=== PATIENT | female | born 1935 | race Caucasian/White ===

== ENCOUNTER 2020-01-01 16:00 | Inpatient (IN) | payer MEDICARE ==
[~2020-01-01] VITALS: Ht 163.8 cm; Wt 52.5 kg
--- NOTE | 2020-01-01 17:30 | NUR ---
The patient, NAM RAZO, 84 y/o, F admitted by DARIA LEPE MD, was given written information regarding hospital policies, unit procedures and contact persons. Valuables were checked and inventoried. Patient admitted for depression and SI, on admission she states that she is depressed but does not have plans to harm herself. Patient has multiple small bruises in various stages of healing throughout her body and small area of redness in buttocks; no other skin issues noted. Patient placed on isolation pending COVID-19 testing.
[2020-01-01 17:55] VITALS: BP 147/76
[2020-01-01 18:00] VITALS: BP 147/76
[2020-01-01] MEDS ORDERED: MULT-246 PO (20:02)
[2020-01-01] MEDS ORDERED: ATOR40TA59 PO (20:02)
[2020-01-01] MEDS ORDERED: DOCU100T5 PO (20:02)
[2020-01-01] MEDS ORDERED: ASPI81TA59 PO (20:02)
[2020-01-01] MEDS ORDERED: DONE10TA7 PO (20:02)
[2020-01-01] MEDS ORDERED: LEVO88TA51 PO (20:02)
[2020-01-01] MEDS ORDERED: LAMO150T4 PO (20:02)
[2020-01-01] MEDS ORDERED: CALC600T23 PO (20:02)
[2020-01-01] MEDS ORDERED: METO-239 PO (20:02)
[2020-01-01] MEDS ORDERED: OLAN20TA15 PO (20:02)
[2020-01-01] MEDS ORDERED: OLANZapine 10 MG TABLET PO SCH (21:00)
[2020-01-01] MEDS: DOCUSATE SODIUM 100 MG CAPSULE PO SCH (21:12)
[2020-01-01] MEDS: ATORVASTATIN CALCIUM 20 MG TABLET PO SCH (21:12)
--- NOTE | 2020-01-01 23:30 | PDOC ---
Exam Note: Alistair Note: Please also refer to the separate dictated note~for this date of service dictated separately.~Patient seen individually. Discussed the patient with Nursing staff reviewed the chart.~Reviewed interim history and current functioning. Reviewed vital signs,~Labs/ Radiology~and current medications noted below. Continue current treatment with the changes noted in the dictated addendum note Assessment: Vital Signs/I&O: Vital Signs Date Time Temp Pulse Resp B/P (MAP) Pulse Ox O2 Delivery O2 Flow Rate FiO2 01/01/20 20:22 98.7 95 01/01/20 18:00 78 147/76 (99) 01/01/20 17:55 18 Room Air Current Medications: Meds: Current Medications Medications (Trade) Dose Ordered Sig/Williams Route PRN Reason Start Time Stop Time Status Last Admin Dose Admin Atorvastatin Calcium (Lipitor) 40 mg QHS PO 01/01/20 21:00 01/01/20 21:12 Docusate Sodium (Colace) 100 mg BID PO 01/01/20 21:00 01/01/20 21:12 Olanzapine (ZyPREXA) 20 mg BID PO 01/01/20 21:00 01/01/20 22:59 DC 01/01/20 21:12 I have reviewed the current psychotropics carefully including drug interactions. Risk benefit ratio favors no change other than as noted in my dictated progress note. AGNIESZKA COLLADO MD Jan 01, 2020 23:30
--- NOTE | 2020-01-01 23:58 | NUR ---
Nursing Note Pt alert and oriented, denies complaints. Quiet and cooperative med compliant.
--- NOTE | 2020-01-02 01:22 | CONS ---
DATE OF CONSULTATION: 01/01/2020 PSYCHIATRIC PROGRESS NOTE This note covers elements not covered in my initial note 01/01/2020. IDENTIFYING DATA: The patient is an 84-year-old female referred to us from [facility] where she has been in the Emergency Room overnight after she was brought there by her granddaughter with whom she lives as the patient had voiced suicidal ideation with a plan to end her life. The patient was also noted to have a UTI, which is being treated, but she remained extremely depressed. Behaviors deemed a potential danger to herself. She had failed outpatient psychiatric interventions resulting in this referral. She is on the medical/surgical floor until she can have a COVID-19 screen completed and then plan is to transfer her to the [facility] Unit. CHIEF COMPLAINT: "Yes, I thought about ending my life, but my granddaughter told me that I would never get to see my . I can't do that. We were for over 50 years." HISTORY OF PRESENT ILLNESS: The patient has a history of some short-term memory deficits, worsening symptoms of depression, feeling hopeless, helpless and worthless. She has been having sleep and appetite changes, withdrawal, apathy, low motivation, some paranoia. She also has short-term memory deficits. PAST PSYCHIATRIC HISTORY: As above. MEDICAL HISTORY: Positive for seizure disorder, atrial fibrillation, hypertension, chronic kidney disease stage 3, history of falls, arthritis, cataracts, chronic constipation. ACCU-CHEKS: None. DIET: Regular. Takes medications whole. Ambulates in wheelchair. CODE STATUS: DNR. ALLERGIES: To SULTANA INHIBITORS, PENICILLIN, PHENAZOPYRIDINE. CURRENT PSYCHOTROPICS: Lamictal 300 mg daily for her seizure disorder, Aricept 10 mg a day, Zyprexa 20 mg b.i.d. FAMILY HISTORY: Noncontributory. SOCIAL HISTORY: No history of alcohol, drug abuse, physical, sexual or elder abuse. She is not known to be a perpetrator. REACTION TO HOSPITALIZATION: The patient accepting of this. ASSETS: Supportive family. She lives with her granddaughter and great grandson. MENTAL STATUS EXAMINATION: The patient is oriented to herself and situation. The patient knew she was admitted earlier today, but was unsure where she was before she came here. Speech is moderate latency, often responses monosyllabic. Abstraction fair, computation impaired, language function intact. Mood is depressed, anxious. Short-term memory is impaired. No active suicidal ideation. LABORATORY DATA: Reviewed. IMPRESSION: Major depressive disorder, recurrent, severe; rule out psychotic features; mild cognitive impairment; anxiety disorder, unspecified. Rest as above. PLAN: For now, we will reduce the patient's Zyprexa down to 10 mg b.i.d. and then further reduce it in due course. Given her age and diagnosis and overall condition, risk/benefit ratio favors this reduction. Maintain rest of the psychotropics unchanged. We will observe baseline, treat the UTI. Make further adjustments as clinically indicated. The patient may need to transition to the Senior Behavioral Health Unit when she is medically stabilized and is COVID-19 negative. This was a telehealth evaluation. AGNIESZKA COLLADO MD DR: PIEDAD/tegan JOB#: [id number] / [id number]
[2020-01-02] MEDS ORDERED: ACETAMINOPHEN 325 MG TABLET PO PRN (02:00)
[2020-01-02] MEDS: LEVOTHYROXINE 88 MCG TABLET PO SCH (05:39)
[2020-01-02 05:55] VITALS: BP 121/57
[2020-01-02] MEDS: MULTIVITAMIN with MINERAL TABLET. PO SCH (10:07)
[2020-01-02] MEDS: CALCIUM CARBONATE 500 MG TABLET PO SCH (10:07)
[2020-01-02] MEDS: lamoTRIgine 100 MG TABLET. PO SCH (10:07)
[2020-01-02] MEDS: DONEPEZIL HCL 10 MG TABLET PO SCH (10:07)
[2020-01-02] MEDS: ASPIRIN CHEWABLE 81 MG TABLET. PO SCH (10:07)
[2020-01-02] MEDS: METOPROLOL SUCC 24HR ER 25 MG TAB.ER.24H. PO SCH (10:08)
[2020-01-02] MEDS: DOCUSATE SODIUM 100 MG CAPSULE PO SCH ×2 (10:10→23:32)
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
--- NOTE | 2020-01-02 17:03 | TX PLAN ---
Interdisciplinary Tx Plan Admission Information Jan 01, 2020 at 16:00 Legal Status (on Admission): Voluntary DPOA/Guardian Name: Giuseppe Dinh Contact Verified Code Status: DNR Allergies: Coded Allergies: SULTANA Inhibitors (Verified Allergy, Unknown, 01/01/20) Penicillins (Verified Allergy, Unknown, 01/01/20) phenazopyridine (Verified Allergy, Unknown, 01/01/20) Diagnoses Primary Diagnosis: MDD Reasons for Admission: Aggressive, Depressed, Suicidal ideation, Other Problem in Patient's Words: Pt has been getting worse over time. Additional Admission Comments: According to the intake, pt is SI, throwing herself on the floor to "". Pt is increasingly depressed and hits her head against the bed rails. Aggressive to granddtr Problems Active Problems: Depression Inactive Problems: Medication compliance Pt Strengths/Limitations Ability for [place]: Poor Cognitive Functioning/Ability: Fair Communication Skills/Ability: Fair Financial Resources: Fair Insight/Judgement: Fair Intellectual Ability: Fair Physical Health: Poor Social Skills: Fair Stability in Family: Fair Stability in School/Work: Poor Verbal Skills: Fair Discharge Criteria Discharge Criteria: No need for close observ., Adequate arrangements @DC, Improved behavior, Improved mood/thought Preliminary Discharge Plan Preliminary DC Plan: Placement Needed, Current Living Arrange. Special Precautions Fall Risk: Moderate Initial D/C Plan Undecided at this time: Home vs Placement Identified Discharge Needs: Potential referrals needed in the event family decides not to have pt home. Currently Utilized Resources Currently Utilized Resources/P: Primary Care Physician Referrals Community Resources: Mental health services Identified Problems/Hx/Goals Objectives/Short-Term Goals Short Term Goals: Dec. Aggression, Dec. Symp. Depression, Medication Stabilization, Promote Coping Skill Short Term Goals in Patient's: Figure out my next steps, I want to go home but my family may decide differently. Interventions/Frequency Staff Interventions/Frequency&: Psychiatrist to assess pt at least 3x per week for medication management Microeconomics Professor to assess pt at least 2x per week and continually assess discharge needs/barriers. Nursing to assess behaviors, medication and complete 15 minute checks daily Encourage participation in group activites (if applicable) or 1:1 engagement based off Activities assessment. 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
[2020-01-02 18:03] VITALS: BP 130/60
[2020-01-02 19:19] LABS: BACTERIA,URINE 0 /HPF (0-FEW); BILIRUBIN,URINE NEG (NEG); CLARITY,URINE CLEAR; COLOR,URINE YELLOW; GLUCOSE,URINE NEG (NEG); NITRITE,URINE NEG (NEG); RBC,URINE 0 /HPF (0-2); SQUAMOUS EPITHELIAL CELL,UR OCC /LPF; UROBILINOGEN,URINE 0.2 mg/dL (0.2 mg/dL); WBC,URINE 0 /HPF (0-4)
[2020-01-02 19:20] LABS: AMORPHOUS SEDIMENT,UR PRESENT /HPF
[2020-01-02 19:45] VITALS: BP 127/56
--- NOTE | 2020-01-02 19:47 | CONS ---
DATE OF CONSULTATION: 01/02/2020 REASON FOR CONSULTATION: Medical management. HISTORY OF PRESENT ILLNESS: The patient is an 84-year-old female patient who was referred to the Senior Behavioral Unit from [facility] where she has been in the Emergency Room overnight after she was brought there by granddaughter with whom she lives as the patient had voiced suicidal ideation with a plan to end her life. The patient was also noted to have a UTI, which is being treated, but she remained extremely depressed behavior that deemed potentially dangerous to herself, as she has failed outpatient psychiatric intervention resulting in this referral. She is now on medical surgical floor until she can have a COVID-19 screen completed and then plan to transfer to [facility] for inpatient psychiatric stabilization. When I saw her this afternoon, she did complain of aches and pains, particularly in her neck, but denied any other complaint. She stated that she lives with her granddaughter the last 4 years and she sometimes has difficulty getting along with her granddaughter. PAST MEDICAL HISTORY: Significant for seizure disorder, atrial fibrillation, hypertension, chronic kidney disease stage 3, recurrent falls, osteoarthritis, cataracts, and chronic constipation. PAST SURGICAL HISTORY: Significant for she said probably vertebroplasty, although I do not have any documentation of that. ALLERGIES: SHE IS ALLERGIC TO PENICILLIN AND SULTANA INHIBITORS AND PHENAZOPYRIDINE. FAMILY HISTORY: Noncontributory. SOCIAL HISTORY: She is , lives with her granddaughter. She does not smoke, drink alcohol or use recreational drugs. MEDICATIONS: She is currently on following medications: She is on Aricept 10 mg once a day, atorvastatin calcium 40 mg at bedtime, metoprolol succinate 12.5 mg once a day, aspirin 81 mg once a day, lamotrigine 300 mg once a day, olanzapine 20 mg twice a day, calcium carbonate 600 mg once a day, Colace 100 mg twice a day, levothyroxine sodium 88 mcg once a day, multivitamin 1 tablet once a day. REVIEW OF SYSTEMS: As per history of present illness. PHYSICAL EXAMINATION: GENERAL: When I saw her, she was resting slightly propped up in bed, in no apparent respiratory distress. No pallor, jaundice or cyanosis. No lymphadenopathy or thyromegaly. No jugular venous distension. No lower limb edema. VITAL SIGNS: Her heart rate was 74, blood pressure was 130/60, temperature was 98.4, respiratory rate was 16, and oxygen saturation was 98%. HEAD, EYES, EARS, NOSE AND THROAT: Normocephalic, atraumatic. NECK: Supple. HEART: Showed normal first and second heart sounds. No gallop or murmur. CHEST: Clear to auscultation. No crepitation or rhonchi. ABDOMEN: Distended, soft, nontender. NEUROLOGIC: She is hard of hearing, but otherwise all cranial nerves intact. EXTREMITIES: She moves extremities without difficulty. She ambulates with a walker with standby assist. She uses also a wheelchair at home. She apparently has had lab work at [facility], it showed that her white cell count was 6900, hemoglobin 12.8, hematocrit was 38, platelet was 248,000. Her sodium was 142, potassium 4.2, chloride 104, bicarbonate 22. She had had a CT scan of the brain, which showed no evidence of acute intracranial hemorrhage or other acute intracranial abnormality. ASSESSMENT AND PLAN: In summary, this is an 84-year-old female patient who was admitted with severe depression and suicidal ideation. She has multiple other medical problems including seizure disorder, atrial fibrillation, hypertension, chronic kidney disease stage 3, history of falls, arthritis and chronic constipation. My plan is to repeat her lab work as her lab works are incomplete or at least incompletely transferred from [facility]. Meanwhile, there was mention that she has UTI, but I did not see any urinalysis or urine culture. I will repeat her UA and decide the further management accordingly. Thank you, . ____ for allowing me to participate in the care of this patient. CHRISTIANO SERRANO MD DR: JAN/tegan JOB#: [id number] / [id number]
[2020-01-02 21:13] LABS: CALCIUM 8.2 mg/dL (8.5-10.1); CREATININE 1.4 mg/dL (0.6-1.0); GFR 35.7; POTASSIUM 4.1 mmol/L (3.5-5.1); TOTAL BILIRUBIN 0.2 mg/dL (0.2-1.0); TOTAL PROTEIN 6.1 g/dL (6.4-8.2)
--- NOTE | 2020-01-02 22:36 | PDOC ---
Exam Note: Alistair Note: Subjective: The patient was reviewed on telehealth rounds due to COVID-19 restrictions on the unit in the evening of 01/02/2020 with Wilfredo JEFFERSON. Discussed with nursing staff, reviewed the chart. The patient slept reasonably previous night. I had a conversation with Litzy JEFFERSON last evening. The patient was on Z yprexa 20 mg b.i.d. No clear psychotic symptoms noted. Given her overall age and general health the dosage seemed somewhat excessive and we discontinued it. In fact she appeared more awake and interactive since then. Review of Systems: She is hard of hearing. No CV, , pulmonary system symptoms on review. Mental Status Exam: Oriented to herself and situation. Speech is coherent. Abstraction fair. Computation impaired. Language functions intact. Short-term memory does have impairment. Mood is still dysphoric. No active suicidal ideation. Laboratory Data: Reviewed. Impression: Major depressive disorder recurrent, severe. Anxiety disorder unspecified. Mild cognitive impairment. Plan: We will stop the Zyprexa 20 mg b.i.d. Start Zoloft 25 mg a day for 3 day and 50 mg a day. Maintain Lamictal 300 mg daily for seizures, Aricept 10 mg a day. Assessment: Vital Signs/I&O: Vital Signs Date Time Temp Pulse Resp B/P (MAP) Pulse Ox O2 Delivery O2 Flow Rate FiO2 01/02/20 18:03 98.4 74 16 130/60 (83) 98 01/01/20 17:55 Room Air I & O 01/01/20 01/01/20 01/02/20 15:00 23:00 07:00 Intake Total 530 ml 85 ml Balance 530 ml 85 ml Labs: Laboratory Tests Test 01/02/20 19:00 01/02/20 20:45 Urine Collection Type Unknown Urine Color Yellow Urine Clarity Clear Urine pH 5.5 Urine Specific Bailey 1.015 Urine Protein Neg (NEG-TRACE) Urine Glucose (UA) Neg mg/dL (NEG) Urine Ketones (Stick) Neg mg/dL (NEG) Urine Blood Neg (NEG) Urine Nitrite Neg (NEG) Urine Bilirubin Neg (NEG) Urine Urobilinogen Dipstick 0.2 mg/dL (0.2 mg/dL) Urine Leukocyte Esterase Neg (NEG) Urine RBC 0 /HPF (0-2) Urine WBC 0 /HPF (0-4) Urine Squamous Epithelial Cells Occ /LPF Urine Amorphous Sediment Present /HPF Urine Bacteria 0 /HPF (0-FEW) Urine Mucus Slight /LPF Sodium Level 139 mmol/L (136-145) Potassium Level 4.1 mmol/L (3.5-5.1) Chloride Level 106 mmol/L (98-107) Carbon Dioxide Level 20 mmol/L (21-32) L Anion Gap 13 (6-14) Blood Urea Nitrogen 42 mg/dL (7-20) H Creatinine 1.4 mg/dL (0.6-1.0) H Estimated GFR (Cockcroft-Gault) 35.7 BUN/Creatinine Ratio 30 (6-20) H Glucose Level 120 mg/dL (70-99) H Calcium Level 8.2 mg/dL (8.5-10.1) L Total Bilirubin 0.2 mg/dL (0.2-1.0) Aspartate Amino Transferase (AST) 26 U/L (15-37) Alanine Aminotransferase (ALT) 26 U/L (14-59) Alkaline Phosphatase 54 U/L (46-116) Total Protein 6.1 g/dL (6.4-8.2) L Albumin 3.0 g/dL (3.4-5.0) L Albumin/Globulin Ratio 1.0 (1.0-1.7) Current Medications: Meds: Current Medications Medications (Trade) Dose Ordered Sig/Williams Route PRN Reason Start Time Stop Time Status Last Admin Dose Admin Aspirin (Aspirin Chewable) 81 mg DAILY PO 01/02/20 09:00 01/02/20 10:07 Donepezil HCl (Aricept) 10 mg DAILY PO 01/02/20 09:00 01/02/20 10:07 Levothyroxine Sodium (Synthroid) 88 mcg DAILY06 PO 01/02/20 06:00 01/02/20 05:39 Metoprolol Succinate (Toprol Xl) 12.5 mg DAILY PO 01/02/20 09:00 01/02/20 10:08 Calcium Carbonate/ Glycine (Oscal) 500 mg DAILY PO 01/02/20 09:00 01/02/20 10:07 Lamotrigine (LaMICtal) 300 mg DAILY PO 01/02/20 09:00 01/02/20 10:07 Multivitamins/ Calcium (Thera-M Plus) 1 tab DAILY PO 01/02/20 09:00 01/02/20 10:07 I have reviewed the current psychotropics carefully including drug interactions. Risk benefit ratio favors no change other than as noted in my dictated progress note. Diagnosis: Problems: (1) Major depressive disorder, recurrent episode (2) Mild cognitive impairment (3) Anxiety disorder, unspecified AGNIESZKA COLLADO MD Jan 02, 2020 22:36
[2020-01-02] MEDS: ATORVASTATIN CALCIUM 20 MG TABLET PO SCH (23:33)
[2020-01-03 04:00] VITALS: BP 140/56
--- NOTE | 2020-01-03 04:36 | NUR ---
This shift pt has been pleasant and cooperative. Meds were taken whole one at a time. She is oriented to self forgetful with some confusion. Since going to bed she has been sleeping well. No mention of SI and no behaviors tonight.
[2020-01-03] MEDS: LEVOTHYROXINE 88 MCG TABLET PO SCH (05:55)
[2020-01-03] MEDS: SERTRALINE 25 MG TABLET. PO SCH (09:47)
[2020-01-03] MEDS: MULTIVITAMIN with MINERAL TABLET. PO SCH (09:47)
[2020-01-03] MEDS: METOPROLOL SUCC 24HR ER 25 MG TAB.ER.24H. PO SCH (09:49)
[2020-01-03] MEDS: CALCIUM CARBONATE 500 MG TABLET PO SCH (09:49)
[2020-01-03] MEDS: lamoTRIgine 100 MG TABLET. PO SCH (09:49)
[2020-01-03] MEDS: DONEPEZIL HCL 10 MG TABLET PO SCH (09:49)
[2020-01-03] MEDS: DOCUSATE SODIUM 100 MG CAPSULE PO SCH ×2 (09:49→21:06)
[2020-01-03] MEDS: ASPIRIN CHEWABLE 81 MG TABLET. PO SCH (09:49)
[2020-01-03 10:42] LABS: HEMATOCRIT 36.4 % (36.0-47.0); HEMOGLOBIN 12.1 g/dL (12.0-15.5); RED BLOOD COUNT 3.83 x10^6/uL (3.50-5.40); RED CELL DISTRIBUTION WIDTH 14.1 % (11.5-14.5); WHITE BLOOD COUNT 5.8 x10^3/uL (4.0-11.0)
[2020-01-03] MEDS ORDERED: FLU VACC QS 2020-21(6MOS+)/PF 0.5 ML SYRINGE. VAX IM ONE (13:00)
[2020-01-03 15:21] VITALS: BP 126/62
[2020-01-03 20:00] VITALS: BP 148/50
[2020-01-03] MEDS: ATORVASTATIN CALCIUM 20 MG TABLET PO SCH (21:06)
--- NOTE | 2020-01-03 21:48 | PDOC ---
Exam Note: Alistair Note: Please also refer to the separate dictated note~for this date of service dictated separately.~Patient seen individually. Discussed the patient with Nursing staff reviewed the chart.~Reviewed interim history and current functioning. Reviewed vital signs,~Labs/ Radiology~and current medications noted below. Continue current treatment with the changes noted in the dictated addendum note Assessment: Vital Signs/I&O: Vital Signs Date Time Temp Pulse Resp B/P (MAP) Pulse Ox O2 Delivery O2 Flow Rate FiO2 01/03/20 20:00 97.6 74 16 148/50 (82) 97 Room Air I & O 01/02/20 01/02/20 01/03/20 14:59 22:59 06:59 Intake Total 460 ml 690 ml Balance 460 ml 690 ml Labs: Laboratory Tests Test 01/03/20 10:11 White Blood Count 5.8 x10^3/uL (4.0-11.0) Red Blood Count 3.83 x10^6/uL (3.50-5.40) Hemoglobin 12.1 g/dL (12.0-15.5) Hematocrit 36.4 % (36.0-47.0) Mean Corpuscular Volume 95 fL (79-100) Mean Corpuscular Hemoglobin 32 pg (25-35) Mean Corpuscular Hemoglobin Concent 33 g/dL (31-37) Red Cell Distribution Width 14.1 % (11.5-14.5) Platelet Count 196 x10^3/uL (140-400) Thyroid Stimulating Hormone (TSH) 0.871 uIU/mL (0.358-3.740) Current Medications: Meds: Current Medications Medications (Trade) Dose Ordered Sig/Williams Route PRN Reason Start Time Stop Time Status Last Admin Dose Admin Sertraline HCl (Zoloft) 25 mg DAILY PO 01/03/20 09:00 01/05/20 23:50 01/03/20 09:47 Influenza Virus Vaccine Quadrival (Fluzone Quad Syringe) 0.5 ml ONCE ONCE VAX IM 01/03/20 13:00 01/03/20 13:01 DC 01/03/20 18:20 I have reviewed the current psychotropics carefully including drug interactions. Risk benefit ratio favors no change other than as noted in my dictated progress note. Diagnosis: Problems: (1) Major depressive disorder, recurrent episode (2) Mild cognitive impairment (3) Anxiety disorder, unspecified AGNIESZKA COLLADO MD Jan 03, 2020 21:48
--- NOTE | 2020-01-03 23:20 | PDOC ---
Exam Note: Alistair Note: Subjective: The patient was reviewed on telehealth rounds due to COVID-19 restrictions on the unit in the evening of 01/03/2020 with Karen JEFFERSON. Discussed with nursing staff, reviewed the chart. The patient was also discussed at treatment team meeting in the morning of 01/03/2020 with Madina (social services technician) Karen JEFFERSON and myself. Overall the patient is doing better, more cooperative with showers and medications. She slept well previous night. She is still depressed but as I met with her individually she denies active suicidal ideation because she knows if she tries to hurt herself she will not be reunited with her which is something she wants to do after she passes away. Review of Systems: No CV, , pulmonary system symptoms on review. Mental Status Exam: The patient is oriented to herself and situation. Speech has some latency, coherent. Abstraction fair. Computation impaired. Language functions intact. Mood and affect still depressed but no active suicidal ideation. Laboratory Data: Reviewed. Impression: Major depressive disorder recurrent. Anxiety disorder unspecified. Mild cognitive impairment. Plan: Madina discussed how the patients son is wanting her placed in a nursing facility. She may be appropriate for an assisted living, perhaps not for long- term nursing care. The alternative for her would be for her to be back home with her granddaughter and great grandson but I will let the social service staf f address this with the family. Maintain current psychotropics. Zoloft was initiated 25 mg a day for 3 days and 50 mg a day. Adjust further as clinically indicated. Assessment: Vital Signs/I&O: Vital Signs Date Time Temp Pulse Resp B/P (MAP) Pulse Ox O2 Delivery O2 Flow Rate FiO2 01/03/20 20:00 97.6 74 16 148/50 (82) 97 Room Air I & O 01/02/20 01/02/20 01/03/20 15:00 23:00 07:00 Intake Total 460 ml 690 ml Balance 460 ml 690 ml Labs: Laboratory Tests Test 01/03/20 10:11 White Blood Count 5.8 x10^3/uL (4.0-11.0) Red Blood Count 3.83 x10^6/uL (3.50-5.40) Hemoglobin 12.1 g/dL (12.0-15.5) Hematocrit 36.4 % (36.0-47.0) Mean Corpuscular Volume 95 fL (79-100) Mean Corpuscular Hemoglobin 32 pg (25-35) Mean Corpuscular Hemoglobin Concent 33 g/dL (31-37) Red Cell Distribution Width 14.1 % (11.5-14.5) Platelet Count 196 x10^3/uL (140-400) Thyroid Stimulating Hormone (TSH) 0.871 uIU/mL (0.358-3.740) Current Medications: Meds: Current Medications Medications (Trade) Dose Ordered Sig/Williams Route PRN Reason Start Time Stop Time Status Last Admin Dose Admin Sertraline HCl (Zoloft) 25 mg DAILY PO 01/03/20 09:00 01/05/20 23:50 01/03/20 09:47 Influenza Virus Vaccine Quadrival (Fluzone Quad Syringe) 0.5 ml ONCE ONCE VAX IM 01/03/20 13:00 01/03/20 13:01 DC 01/03/20 18:20 I have reviewed the current psychotropics carefully including drug interactions. Risk benefit ratio favors no change other than as noted in my dictated progress note. Diagnosis: Problems: (1) Major depressive disorder, recurrent episode (2) Mild cognitive impairment (3) Anxiety disorder, unspecified AGNIESZKA COLLADO MD Jan 03, 2020 23:20
--- NOTE | 2020-01-04 05:28 | NUR ---
Pt has been in her room tonight she has been pleasant cooperative med compliant and had no behaviors. She was social with staff and made no SI comments.
[2020-01-04] MEDS: LEVOTHYROXINE 88 MCG TABLET PO SCH (05:32)
[2020-01-04 06:03] VITALS: BP 138/72
[2020-01-04] MEDS: DOCUSATE SODIUM 100 MG CAPSULE PO SCH ×2 (10:35→20:44)
[2020-01-04] MEDS: DONEPEZIL HCL 10 MG TABLET PO SCH (10:35)
[2020-01-04] MEDS: MULTIVITAMIN with MINERAL TABLET. PO SCH (10:35)
[2020-01-04] MEDS: CALCIUM CARBONATE 500 MG TABLET PO SCH (10:35)
[2020-01-04] MEDS: ASPIRIN CHEWABLE 81 MG TABLET. PO SCH (10:35)
[2020-01-04] MEDS: SERTRALINE 25 MG TABLET. PO SCH (10:35)
[2020-01-04] MEDS: lamoTRIgine 100 MG TABLET. PO SCH (10:35)
[2020-01-04] MEDS: METOPROLOL SUCC 24HR ER 25 MG TAB.ER.24H. PO SCH (10:36)
[2020-01-04 16:41] VITALS: BP 170/60
[2020-01-04] MEDS ORDERED: CALCIUM CARBONATE 500 MG TAB.CHEW PO PRN (17:15)
[2020-01-04 19:00] VITALS: BP 176/71
[2020-01-04] MEDS ORDERED: MAG HYDROX/AL HYDROX/SIMETH 30 ML ORAL.SUSP PO PRN (19:00)
[2020-01-04] MEDS: ATORVASTATIN CALCIUM 20 MG TABLET PO SCH (20:44)
--- NOTE | 2020-01-04 23:59 | NUR ---
Patient pleasant, cooperative. Compliant with medications taken whole. Denies any pain. Denies SI. Complained of dyspepsia and received PRN Mylanta with HS meds, with good effect. Patient appears to be sleeping comfortably at present time. Will continue to monitor.
[2020-01-05] MEDS: LEVOTHYROXINE 88 MCG TABLET PO SCH (05:00)
[2020-01-05 08:00] VITALS: BP 154/75
[2020-01-05] MEDS: DONEPEZIL HCL 10 MG TABLET PO SCH (08:02)
[2020-01-05] MEDS: DOCUSATE SODIUM 100 MG CAPSULE PO SCH ×2 (08:02→20:53)
[2020-01-05] MEDS: MULTIVITAMIN with MINERAL TABLET. PO SCH (08:02)
[2020-01-05] MEDS: lamoTRIgine 100 MG TABLET. PO SCH (08:02)
[2020-01-05] MEDS: ASPIRIN CHEWABLE 81 MG TABLET. PO SCH (08:02)
[2020-01-05] MEDS: SERTRALINE 25 MG TABLET. PO SCH (08:02)
[2020-01-05] MEDS: CALCIUM CARBONATE 500 MG TABLET PO SCH (08:02)
[2020-01-05] MEDS: METOPROLOL SUCC 24HR ER 25 MG TAB.ER.24H. PO SCH (08:03)
[2020-01-05] MEDS ORDERED: traZODone 50 MG TABLET. PO PRN (17:45)
--- NOTE | 2020-01-05 19:19 | NUR ---
Pt up to BR with assist, Has been in pleasant spirits. Has voiced no SI. Did state she did not sleep well last night and didn't feel like showering and barely felt like eating. Is anxious to start talking with someone about the issues she is having with her grand-daughter at home. Apparently they have several differences of opinion. Has been compliant with meds and cares.
[2020-01-05 20:50] VITALS: BP 145/88
[2020-01-05] MEDS: FAMOTIDINE 20 MG TABLET PO SCH (20:53)
[2020-01-05] MEDS: ATORVASTATIN CALCIUM 20 MG TABLET PO SCH (20:53)
[2020-01-05] MEDS ORDERED: MIRTAZAPINE 7.5 MG TABLET. PO SCH (21:00)
--- NOTE | 2020-01-05 21:47 | PDOC ---
Exam Note: Alistair Note: Please also refer to the separate dictated note~for this date of service dictated separately.~Patient seen individually. Discussed the patient with Nursing staff reviewed the chart.~Reviewed interim history and current functioning. Reviewed vital signs,~Labs/ Radiology~and current medications noted below. Continue current treatment with the changes noted in the dictated addendum note Assessment: Vital Signs/I&O: Vital Signs Date Time Temp Pulse Resp B/P (MAP) Pulse Ox O2 Delivery O2 Flow Rate FiO2 01/05/20 20:50 99.0 128 18 145/88 (107) 94 Room Air 01/04/20 20:00 2.0 I & O 01/04/20 01/04/20 01/05/20 15:00 23:00 07:00 Intake Total 478 ml 240 ml 240 ml Balance 478 ml 240 ml 240 ml Current Medications: Meds: Current Medications Medications (Trade) Dose Ordered Sig/Williams Route PRN Reason Start Time Stop Time Status Last Admin Dose Admin Famotidine (Pepcid) 20 mg BID PO 01/05/20 21:00 01/05/20 20:53 I have reviewed the current psychotropics carefully including drug interactions. Risk benefit ratio favors no change other than as noted in my dictated progress note. Diagnosis: Problems: (1) Major depressive disorder, recurrent episode (2) Mild cognitive impairment (3) Anxiety disorder, unspecified AGNIESZKA COLLADO MD Jan 05, 2020 21:47
[2020-01-06] MEDS: LEVOTHYROXINE 88 MCG TABLET PO SCH (06:00)
[2020-01-06 08:35] VITALS: BP 127/51
[2020-01-06] MEDS: DONEPEZIL HCL 10 MG TABLET PO SCH (08:42)
[2020-01-06] MEDS: ASPIRIN CHEWABLE 81 MG TABLET. PO SCH (08:42)
[2020-01-06] MEDS: CALCIUM CARBONATE 500 MG TABLET PO SCH (08:43)
[2020-01-06] MEDS: FAMOTIDINE 20 MG TABLET PO SCH (08:43)
[2020-01-06] MEDS: MULTIVITAMIN with MINERAL TABLET. PO SCH (08:43)
[2020-01-06] MEDS: lamoTRIgine 100 MG TABLET. PO SCH (08:43)
[2020-01-06] MEDS: DOCUSATE SODIUM 100 MG CAPSULE PO SCH (08:43)
[2020-01-06 08:44] VITALS: BP 127/51
[2020-01-06] MEDS: METOPROLOL SUCC 24HR ER 25 MG TAB.ER.24H. PO SCH (08:44)
[2020-01-06] MEDS ORDERED: SERTRALINE 50 MG TABLET. PO SCH (09:00)
--- NOTE | 2020-01-06 09:00 | NUR ---
Pt asked to go for a walk in the shea. P then began sobbing and unable to be consoled. Pt stating she is anxious and fearful of transferring to [facility]. She then stated she has "a lot of problems." Nurse provided redirection and emotional support. Pt was encouraged to lay in bed to relax and regain self control. Pt was agreeable. Pt assisted to bed and placed in position of comfort. Dr. Munson paged new order for zyprexa zydis 2.5mg q 2 hours PRN max dose 10mg in 24 hours.
--- NOTE | 2020-01-06 10:58 | NUR ---
Pt rang her call light and was fearful and tearful she would "miss the move upstairs and then wouldn't be able to see my social secretary tomorrow." Nurse was unable to redirect or console pt. PRN yousuf moore given.
--- NOTE | 2020-01-06 13:45 | NUR ---
Discharge Note: GUSTVAO RAZO Discharge instructions and discharge home medications reviewed with Environmental Science Instructor and a copy given. All questions have been answered and understanding verbalized. The following instructions and handouts were given: Discharge packet Discontinued lines and drains: N/A intact. Patient discharged to [facility] with Malena MCKOY and Shara JEFFERSON via .
--- NOTE | 2020-01-06 14:08 | NUR ---
Pt assisted to WC by nurse and [facility] staff. Pt transported to [facility] via wc.
[2020-01-06] MEDS ORDERED: CALC1177 PO (14:57)
[2020-01-06] MEDS ORDERED: FAMO20TA5 PO (14:58)
[2020-01-06] MEDS ORDERED: ACET325T21 PO (15:00)
[2020-01-06] MEDS ORDERED: MAG-115 PO (15:01)
[2020-01-06] MEDS ORDERED: OLAN5TAB99 PO (15:02)
[2020-01-06] MEDS ORDERED: SERT50TA PO ×2 (15:09→15:11)
[2020-01-06] MEDS ORDERED: TRAZ-120 PO (15:12)
--- NOTE | 2020-01-06 23:06 | PDOC ---
Exam Note: Alistair Note: This note is a late entry for 01/04/2020 covers elements not covered in my initial note. Subjective: The patient was reviewed on telehealth rounds due to COVID-19 restrictions on the unit in the evening of 01/04/2020 with nursing staff. Discussed with nursing staff, reviewed the chart. Overall the patient remains depressed, anxious but denies active suicidal ideation. She seems a little less confused, more so in the morning. Review of Systems: Ambulation impaired. No CV, , pulmonary, eye system symptoms on review. Mental Status Exam: The patient is oriented to herself and situation. She is somewhat hard of hearing. Speech is coherent, has some latency. Abstraction fair. Computation impaired. Language functions intact. Attention span is short. Short-term memory is impaired. Laboratory Data: Reviewed. Impression: Major depressive disorder recurrent. Anxiety disorder unspecified. Mild cognitive impairment. Plan: We will go ahead and increase the Zoloft from 25 mg a day up to 50 mg a day in 3 days and then 75 mg a day after she has been on 3 days of 50 mg. Continue rest of the psychotropics unchanged. Adjust further as clinically indicated. Assessment: Vital Signs/I&O: Vital Signs Date Time Temp Pulse Resp B/P (MAP) Pulse Ox O2 Delivery O2 Flow Rate FiO2 01/06/20 08:44 65 127/51 01/06/20 08:35 98.5 18 100 Room Air 01/04/20 20:00 2.0 I & O 01/05/20 01/05/20 01/06/20 14:59 22:59 06:59 Intake Total 600 ml 240 ml 50 ml Balance 600 ml 240 ml 50 ml Current Medications: Meds: Current Medications Medications (Trade) Dose Ordered Sig/Williams Route PRN Reason Start Time Stop Time Status Last Admin Dose Admin Sertraline HCl (Zoloft) 50 mg DAILY PO 01/06/20 09:00 01/06/20 14:35 DC 01/06/20 08:44 Olanzapine (ZyPREXA ZYDIS) 2.5 mg PRN Q2HR PRN PO PSYCHOSIS 01/06/20 09:00 01/06/20 14:35 DC 01/06/20 10:57 I have reviewed the current psychotropics carefully including drug interactions. Risk benefit ratio favors no change other than as noted in my dictated progress note. Diagnosis: Problems: (1) Major depressive disorder, recurrent episode (2) Mild cognitive impairment (3) Anxiety disorder, unspecified AGNIESZKA COLLADO MD Jan 06, 2020 23:06
--- NOTE | 2020-01-06 23:09 | PDOC ---
Exam Note: Alistair Note: This note is a late entry for 01/05/2020 covers elements not covered in my initial note. Subjective: The patient was reviewed on telehealth rounds due to COVID-19 restrictions on the unit in the evening of 01/05/2020 with Shara JEFFERSON. She slept reasonably previous night. She is somewhat obsessive and anxious. She is a less labile in her mood at times, had difficulty sleeping. We will add trazodone 50 mg h.s. p.r.n. insomnia, may repeat x1. Review of Systems: She is somewhat hard of hearing. Impaired ambulation. No CV, , pulmonary system symptoms on review. Mental Status Exam: The patient is oriented to herself and situation. Speech has some latency, coherent. Abstraction fair. Computation impaired. Language functions intact. Attention span is short. Short-term memory is impaired. Laboratory Data: Reviewed. Impression: Major depressive disorder recurrent. Anxiety disorder unspecified. Mild cognitive impairment. Plan: We will go ahead and add trazodone 50 mg h.s. p.r.n. insomnia, may repeat x1. Maintain Zoloft. Increase gradually. Continue Lamictal, Aricept she is taking the present time. Adjust further as clinically indicated. Assessment: Vital Signs/I&O: Vital Signs Date Time Temp Pulse Resp B/P (MAP) Pulse Ox O2 Delivery O2 Flow Rate FiO2 01/06/20 08:44 65 127/51 01/06/20 08:35 98.5 18 100 Room Air 01/04/20 20:00 2.0 I & O 01/05/20 01/05/20 01/06/20 14:59 22:59 06:59 Intake Total 600 ml 240 ml 50 ml Balance 600 ml 240 ml 50 ml Current Medications: Meds: Current Medications Medications (Trade) Dose Ordered Sig/Williams Route PRN Reason Start Time Stop Time Status Last Admin Dose Admin Sertraline HCl (Zoloft) 50 mg DAILY PO 01/06/20 09:00 01/06/20 14:35 DC 01/06/20 08:44 Olanzapine (ZyPREXA ZYDIS) 2.5 mg PRN Q2HR PRN PO PSYCHOSIS 01/06/20 09:00 01/06/20 14:35 DC 01/06/20 10:57 I have reviewed the current psychotropics carefully including drug interactions. Risk benefit ratio favors no change other than as noted in my dictated progress note. Diagnosis: Problems: (1) Major depressive disorder, recurrent episode (2) Mild cognitive impairment (3) Anxiety disorder, unspecified AGNIESZKA COLLADO MD Jan 06, 2020 23:08
[2020-01-09] MEDS ORDERED: SERTRALINE 25 MG TABLET. PO SCH (09:00)
== END 2020-01-06 14:00 | disposition short-term general hospital (02) | DRG 690 ==
LOC: 1 SOUTH 16:00 → LND 17:39
PROVIDERS: ADMIT Hospitalist; ATTEND Internal Medicine
DX: N39.0 Urinary tract infection, site not specified (principal); F33.2 Major depressive disorder, recurrent severe without psychotic features; R45.851 Suicidal ideations; Z20.828 Contact with and (suspected) exposure to other viral communicable diseases; Z88.8 Allergy status to other drugs, medicaments and biological substances; Z88.0 Allergy status to penicillin; F22 Delusional disorders; F41.9 Anxiety disorder, unspecified; G31.84 Mild cognitive impairment of uncertain or unknown etiology; G40.909 Epilepsy, unspecified, not intractable, without status epilepticus; I12.9 Hypertensive chronic kidney disease with stage 1 through stage 4 chronic kidney disease, or unspecified chronic kidney disease; I48.91 Unspecified atrial fibrillation; N18.3 Chronic kidney disease, stage 3 (moderate); Z66 Do not resuscitate; Z91.81 History of falling; M19.90 Unspecified osteoarthritis, unspecified site
CPT/HCPCS: 36415; 80053; 81001; 84443; 85027; 90471; 90686; U0003-CS

== ENCOUNTER 2020-01-06 14:00 | Inpatient (IN) | payer MEDICARE ==
[~2020-01-06] VITALS: Ht 162.6 cm; Wt 58.9 kg
[~2020-01-06 14:00] MED LIST: ASPI81TA59 PO; ATOR40TA59 PO; CALC600T23 PO; DOCU100T5 PO; DONE10TA7 PO; LAMO150T4 PO; LEVO88TA51 PO; METO-239 PO; MULT-246 PO; OLAN20TA15 PO
--- NOTE | 2020-01-06 14:00 | NUR ---
Admission Note with Justification for Admission to [facility] Patient admitted to [facility] for protective oversight for emergency stabilization of acute psychiatric crisis. Pt admitted from: COVID unit Mode of arrival: WC Accompanied By: [facility] Staff Precipitating behaviors that initiated intake and admission: SI Description of failure of out patient attempts at stabilization in previous setting list behavior and medication trials: Zoloft, Trazodone Behaviors and assessment findings upon admission: calm Plan: Admit for protective oversight for adjustment and stabilization of medications, behaviors and mood. Intense treatment regimen including groups, medication adjustments, therapy, consistent regimen for ADL's, self care, and sleep hygiene. Daily monitoring by Inpatient staff, Psychiatry, and Medical Physician.
[2020-01-06] MEDS ORDERED: CALC1177 PO (14:57)
[2020-01-06] MEDS ORDERED: FAMO20TA5 PO (14:58)
[2020-01-06] MEDS ORDERED: ACET325T21 PO (15:00)
[2020-01-06] MEDS ORDERED: MAG-115 PO (15:01)
[2020-01-06] MEDS ORDERED: OLAN5TAB99 PO (15:02)
[2020-01-06] MEDS ORDERED: SERT50TA PO ×2 (15:09→15:11)
[2020-01-06] MEDS ORDERED: TRAZ-120 PO (15:12)
[2020-01-06] MEDS ORDERED: MAG HYDROX/AL HYDROX/SIMETH 30 ML ORAL.SUSP PO PRN (17:00)
[2020-01-06] MEDS ORDERED: CALCIUM CARBONATE 500 MG TAB.CHEW PO PRN (17:15)
[2020-01-06] MEDS ORDERED: MAGNESIUM HYDROXIDE 2,400 MG/30 ML ORAL.SUSP. PO PRN (17:15)
[2020-01-06 17:46] VITALS: BP 168/73
[2020-01-06] MEDS: DOCUSATE SODIUM 100 MG CAPSULE PO SCH (19:38)
[2020-01-06] MEDS: FAMOTIDINE 20 MG TABLET PO SCH (19:39)
[2020-01-06] MEDS: ATORVASTATIN CALCIUM 20 MG TABLET PO SCH (19:39)
--- NOTE | 2020-01-06 21:05 | HP ---
ADMIT DATE: 01/06/2020 This note covers elements not covered in my initial note 01/06/2020. The patient was seen on telehealth rounds. IDENTIFYING DATA: The patient is a transfer from long term unit where she was initially admitted on account of worsening symptoms of depression, suicidal ideation when she was living at home with her granddaughter and great grandson. She had made active plans to hurt herself, was taken to [facility], treated for UTI, stabilized, but remained depressed and then transferred to us, and she stayed on the skilled unit awaiting COVID-19 testing before coming up to our unit today. I did initiate her on Zoloft and we have been adjusting that and added trazodone for insomnia. CHIEF COMPLAINT: "I am doing better." "No, I won't try to kill myself. My granddaughter told me if I did that, I would never see my again." HISTORY OF PRESENT ILLNESS: The patient relates symptoms of depression, feeling hopeless, helpless, worthless with suicidal ideation with short-term memory deficits. She has had some sleep and appetite changes. No active homicidal ideation. No clear symptoms of bipolar disorder. PAST PSYCHIATRIC HISTORY: As above. PAST MEDICAL HISTORY: Seizure disorder, atrial fibrillation, hypertension, chronic kidney disease stage 3, history of falls, arthritis, cataracts, chronic constipation. ACCU-CHEKS: None. CODE STATUS: DNR. ALLERGIES: SULTANA INHIBITORS, PENICILLIN, PHENAZOPYRIDINE. DIET: Regular. Takes medications one at a time. CURRENT PSYCHOTROPICS: Lamictal 300 mg daily for seizures, Aricept 10 mg a day, Zoloft gradually being increased to 75 mg a day. FAMILY HISTORY: Noncontributory. SOCIAL HISTORY: No alcohol, drug abuse, physical, sexual or elder abuse. She is not known to be a perpetrator. REACTION TO HOSPITALIZATION: The patient accepting of this. ASSETS: Supportive family including her son who is his DPOA. MENTAL STATUS EXAMINATION: The patient is oriented to herself. Speech has some latency, coherent. She is pleasant, smiling. Abstraction fair, computation impaired, language function intact, attention span short. Short-term memory has some impairment. No active suicidal ideation. Mood is depressed, anxious. IMPRESSION: Major depressive disorder, recurrent, mild cognitive impairment, anxiety disorder, unspecified. Rest as above. PLAN: Admit to Geropsychiatry Unit at [facility]. I will see the patient daily individually from a psychiatric standpoint. Medical followup with Dr. Irizarry. We will continue the patient on her current psychotropics, adjust as clinically indicated. ESTIMATED LENGTH OF STAY: 7-10 days. MAN Bianca COLLADO MD DR: PIEDAD/tegan JOB#: [id number] / [id number]
--- NOTE | 2020-01-06 22:03 | PDOC ---
Exam Note: Alistair Note: Please also refer to the separate dictated note~for this date of service dictated separately.~Patient seen individually. Discussed the patient with Nursing staff reviewed the chart.~Reviewed interim history and current functioning. Reviewed vital signs,~Labs/ Radiology~and current medications noted below. Continue current treatment with the changes noted in the dictated addendum note Assessment: Vital Signs/I&O: Vital Signs Date Time Temp Pulse Resp B/P (MAP) Pulse Ox O2 Delivery O2 Flow Rate FiO2 01/06/20 17:46 97.6 67 19 168/73 (104) 100 Current Medications: Meds: Current Medications Medications (Trade) Dose Ordered Sig/Williams Route PRN Reason Start Time Stop Time Status Last Admin Dose Admin Famotidine (Pepcid) 20 mg BID PO 01/06/20 21:00 01/06/20 19:39 Atorvastatin Calcium (Lipitor) 40 mg QHS PO 01/06/20 21:00 01/06/20 19:39 Docusate Sodium (Colace) 100 mg BID PO 01/06/20 21:00 01/06/20 19:38 I have reviewed the current psychotropics carefully including drug interactions. Risk benefit ratio favors no change other than as noted in my dictated progress note. Diagnosis: Problems: (1) Major depressive disorder, recurrent episode (2) Mild cognitive impairment (3) Anxiety disorder, unspecified AGNIESZKA COLLADO MD Jan 06, 2020 22:03
--- NOTE | 2020-01-06 23:59 | NUR ---
Patient is in her room on assumption of care. She is in pleasant spirits. Somewhat forgetful. Compliant with assessments and medications given whole. Cooperative with shower and HS care. Denies SI presently. No complaints of pain or discomfort. Patient appears to be sleeping comfortably at present time. Will continue to monitor.
[2020-01-07 06:36] VITALS: BP 132/78
[2020-01-07] MEDS: LEVOTHYROXINE 88 MCG TABLET PO SCH (06:36)
[2020-01-07 06:51] LABS: BASO % 1 % (0-3); EOS # 0.2 x10^3/uL (0.0-0.7); EOS % 4 % (0-3); HEMATOCRIT 32.2 % (36.0-47.0); HEMOGLOBIN 10.8 g/dL (12.0-15.5); LYMPH # 1.6 x10^3/uL (1.0-4.8); LYMPH % 26 % (24-48); MEAN CORPUSCULAR HEMOGLOBIN 31 pg (25-35); MEAN CORPUSCULAR HGB CONC 34 g/dL (31-37); MEAN CORPUSCULAR VOLUME 93 fL (79-100); MONO # 0.5 x10^3/uL (0.0-1.1); MONO % 8 % (0-9); NEUT # 3.7 x10^3uL (1.8-7.7); NEUT % 62 % (31-73); PLATELET COUNT 180 x10^3/uL (140-400); RED BLOOD COUNT 3.46 x10^6/uL (3.50-5.40); RED CELL DISTRIBUTION WIDTH 13.4 % (11.5-14.5)
[2020-01-07 07:01] LABS: ALBUMIN 3.1 g/dL (3.4-5.0); CALCIUM 7.7 mg/dL (8.5-10.1); CREATININE 1.2 mg/dL (0.6-1.0); GFR 42.7; MAGNESIUM 2.2 mg/dL (1.8-2.4); POTASSIUM 4.1 mmol/L (3.5-5.1); TOTAL BILIRUBIN 0.2 mg/dL (0.2-1.0); TOTAL PROTEIN 6.2 g/dL (6.4-8.2)
[2020-01-07] MEDS: ASPIRIN CHEWABLE 81 MG TABLET. PO SCH (08:37)
[2020-01-07] MEDS: DONEPEZIL HCL 10 MG TABLET PO SCH (08:37)
[2020-01-07] MEDS: DOCUSATE SODIUM 100 MG CAPSULE PO SCH ×2 (08:38→19:58)
[2020-01-07] MEDS: CALCIUM CARBONATE 500 MG TABLET PO SCH (08:38)
[2020-01-07] MEDS: METOPROLOL SUCC 24HR ER 25 MG TAB.ER.24H. PO SCH (08:38)
[2020-01-07] MEDS: lamoTRIgine 100 MG TABLET. PO SCH (08:38)
[2020-01-07] MEDS: MULTIVITAMIN with MINERAL TABLET. PO SCH (08:38)
[2020-01-07] MEDS: FAMOTIDINE 20 MG TABLET PO SCH ×2 (08:38→19:58)
[2020-01-07] MEDS: SERTRALINE 50 MG TABLET. PO SCH (08:39)
--- NOTE | 2020-01-07 09:40 | NUR ---
ACTIVITY THERAPY ASSESSMENT completed based on notes, observation, and interview. Pt was sitting in a wheelchair facing the window while listening to music. Pt was calm, pleasant, and agreeable. Pt said that she had two children and was a . Pt was able to tell AT that she was at [facility] and that it was the year 2019. Pt said that she didn't now how to answer her reason for admission but expressed difficulties she is having with her caregiver. Pt said that she was having negative feelings at home. Pt said that she lives with her caregiver and her caregiver's three year old son. Pt said that she uses her walker and wheelchair in some places of her home. Pt said that she does need some assistance and her caregiver is there to make sure she is safe. AT asked her if her vision and hearing was okay and she said that it was. AT asked what activities she liked to do and she laughed and said oh not much. Pt said that she liked coloring, magazines, word searches, and TV if she doesn't have to walk down the shea. Pt said that she doesn't really like music or reading. AT asked pt if she likes to stay in her room or if she would rather be out of her room. Pt said that she wanted to stay in her room for the day to get use to and wait for SW. Pt said she was afraid she would get lost if she left her room. Pt said that she wanted to get out of here and do what she need to do. Pt said that she watched TV at home with her family when asked what activities she likes to do with her family. Pt reports that she has a poor support system as she doesn't talk to one of her children and the second one she doesn't talk to much. Pt said that her caregiver is hard to talk to because she just tells her what to do. Pt said that her caregiver told people that pt was trying to kill herself and they told her she wouldn't go to heaven with her . Pt said that she said that she had no comment on it. Pt said that the one child she talks to tells her that she needs to respect her caregiver. Pt reports no stress but when she gets stressed her neck tightens up. Pt said that her caregiver and her doctor tell her that she causes her own stress. Pt said that she is in the meals on wheels program. Pt said that her caregiver doesn't know how to cope with her. Pt said that she wants to return to her but they may be placing her in a care home. AT asked if she raised her kids in that home and she said she did. Initial goal aimed to increase stress management/relaxation and community resources. Pt will participate in at least three group Activity Therapy sessions per week. Addendum: 01/25/20 at 1103 by RONEY GAMBOA ACT Goal changed 01/23: Pt will will participate in all Activity Therapy groups offered
--- NOTE | 2020-01-07 11:27 | NUR ---
Pt is calm, cooperative, and compliant. No agitation, no aggression, no hallucinations or delusions. Pt is tearful at times when discussing the relationship with her granddaughter and is fixated on meeting with the hospice social worker today. She is compliant with her medication and assessment.
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
--- NOTE | 2020-01-07 14:25 | TX PLAN ---
Interdisciplinary Tx Plan Admission Information Jan 06, 2020 at 14:00 Legal Status (on Admission): Voluntary DPOA/Guardian Name: Giuseppe Dinh Contact Verified Code Status: DNR Allergies: Coded Allergies: SULTANA Inhibitors (Verified Allergy, Unknown, 01/01/20) Penicillins (Verified Allergy, Unknown, 01/01/20) phenazopyridine (Verified Allergy, Unknown, 01/01/20) Diagnoses Primary Diagnosis: MDD Reasons for Admission: Aggressive, Depressed, Suicidal ideation Problem in Patient's Words: I have trouble at home and am not dealing with it well. Additional Admission Comments: According to the intake, pt is SI, throughing herself on the floor "to ". Pt is increasingly depressed and hits her head against the bed rails. Aggressive with granddtr. Problems Active Problems: Depression Confusion Inactive Problems: Medication Mgmt Pt Strengths/Limitations Ability for Dyer: Poor Cognitive Functioning/Ability: Fair Communication Skills/Ability: Fair Financial Resources: Fair Insight/Judgement: Fair Intellectual Ability: Fair Physical Health: Poor Social Skills: Fair Stability in Family: Fair Stability in School/Work: Poor Verbal Skills: Fair Discharge Criteria Discharge Criteria: No need for close observ., Adequate arrangements @DC, Improved behavior, Improved mood/thought Preliminary Discharge Plan Preliminary DC Plan: Placement Needed, Other Other Arrangements: May need referrals to [facility]/ at discharge Special Precautions Fall Risk: Moderate Initial D/C Plan Undecided at this time; home vs. placement Identified Discharge Needs: Potential referrals needed in the event family decides not to have pt home. Currently Utilized Resources Currently Utilized Resources/P: Primary Care Physician Referrals Community Resources: Mental Health Services potential start up for hospice Identified Problems/Hx/Goals Objectives/Short-Term Goals Short Term Goals: Dec. Aggression, Dec. Symp. Depression, Medication Stabilization, Promote Coping Skill Short Term Goals in Patient's: Figure out my next steps. I want to go home but my family may decide differently. Interventions/Frequency Staff Interventions/Frequency&: Psychiatrist to assess pt at least 3x per week for medication management. conservation worker to asses pt at least 2x per week and continually assess discharge needs/ barriers. Nursing to assess behaviors, medications and complete 15 minute checks daily. Encourage participation in group activities (if applicable) or 1:1 engagement based off Activities Dept. 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 Education: Pt reports graduating HS (12th grade) Community Follow-up Primary Care Physician Community Provider/Family Inpu: She is just having more troubles with her grandaughter and she can't care for her anymore. It maybe time to send her to a [facility]. 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
--- NOTE | 2020-01-07 14:34 | NUR ---
Pt is anxious at this time, crying, pacing, and stating her mind is racing. Staff is unable to console pt at this time. PRN zyprexa zydis given.
[2020-01-07 15:33] VITALS: BP 172/78
--- NOTE | 2020-01-07 15:50 | NUR ---
Pt continues to cry and need frequent redirection and reminders from staff.
[2020-01-07] MEDS: QUEtiapine 25 MG TABLET. PO SCH (18:08)
[2020-01-07 19:07] LABS: THYROXINE 7.1 ug/dL (4.5-12.0)
[2020-01-07] MEDS: ATORVASTATIN CALCIUM 20 MG TABLET PO SCH (19:58)
--- NOTE | 2020-01-07 21:30 | NUR ---
Pt highly anxious this evening. Pt restless, up/down from bed and coming in and out of her room. Pt breathing rapidly, almost to the point of hyperventilating. Pt making statements such as "I don't know what to do" and "somebody help me." Staff attempting to help calm pt. Pt declined diversional activities: mychal, book, etc. Pt compliant with HS medications. PRN Zyprexa administered with HS medications. Pt eventually laid down and fell asleep. Will continue to monitor.
--- NOTE | 2020-01-07 21:49 | PDOC ---
Exam Note: Alistair Note: Please also refer to the separate dictated note~for this date of service dictated separately.~Patient seen individually. Discussed the patient with Nursing staff reviewed the chart.~Reviewed interim history and current functioning. Reviewed vital signs,~Labs/ Radiology~and current medications noted below. Continue current treatment with the changes noted in the dictated addendum note Assessment: Vital Signs/I&O: Vital Signs Date Time Temp Pulse Resp B/P (MAP) Pulse Ox O2 Delivery O2 Flow Rate FiO2 01/07/20 19:20 98.0 98 01/07/20 15:33 72 22 172/78 (109) I & O 01/06/20 01/06/20 01/07/20 15:00 23:00 07:00 Intake Total 340 ml Balance 340 ml Labs: Laboratory Tests Test 01/07/20 06:35 White Blood Count 6.0 x10^3/uL (4.0-11.0) Red Blood Count 3.46 x10^6/uL (3.50-5.40) L Hemoglobin 10.8 g/dL (12.0-15.5) L Hematocrit 32.2 % (36.0-47.0) L Mean Corpuscular Volume 93 fL (79-100) Mean Corpuscular Hemoglobin 31 pg (25-35) Mean Corpuscular Hemoglobin Concent 34 g/dL (31-37) Red Cell Distribution Width 13.4 % (11.5-14.5) Platelet Count 180 x10^3/uL (140-400) Neutrophils (%) (Auto) 62 % (31-73) Lymphocytes (%) (Auto) 26 % (24-48) Monocytes (%) (Auto) 8 % (0-9) Eosinophils (%) (Auto) 4 % (0-3) H Basophils (%) (Auto) 1 % (0-3) Neutrophils # (Auto) 3.7 x10^3uL (1.8-7.7) Lymphocytes # (Auto) 1.6 x10^3/uL (1.0-4.8) Monocytes # (Auto) 0.5 x10^3/uL (0.0-1.1) Eosinophils # (Auto) 0.2 x10^3/uL (0.0-0.7) Basophils # (Auto) 0.0 x10^3/uL (0.0-0.2) D-Dimer (Raya) 0.70 mg/L (0.00-0.50) H Sodium Level 140 mmol/L (136-145) Potassium Level 4.1 mmol/L (3.5-5.1) Chloride Level 106 mmol/L (98-107) Carbon Dioxide Level 25 mmol/L (21-32) Anion Gap 9 (6-14) Blood Urea Nitrogen 26 mg/dL (7-20) H Creatinine 1.2 mg/dL (0.6-1.0) H Estimated GFR (Cockcroft-Gault) 42.7 BUN/Creatinine Ratio 22 (6-20) H Glucose Level 93 mg/dL (70-99) Calcium Level 7.7 mg/dL (8.5-10.1) L Magnesium Level 2.2 mg/dL (1.8-2.4) Total Bilirubin 0.2 mg/dL (0.2-1.0) Aspartate Amino Transferase (AST) 22 U/L (15-37) Alanine Aminotransferase (ALT) 27 U/L (14-59) Alkaline Phosphatase 50 U/L (46-116) Total Protein 6.2 g/dL (6.4-8.2) L Albumin 3.1 g/dL (3.4-5.0) L Albumin/Globulin Ratio 1.0 (1.0-1.7) Triglycerides Level 37 mg/dL (0-150) Cholesterol Level 127 mg/dL (0-200) LDL Cholesterol, Calculated 54 mg/dL (0-100) VLDL Cholesterol, Calculated 7 mg/dL (0-40) Non-HDL Cholesterol Calculated 61 mg/dL (0-129) HDL Cholesterol 66 mg/dL (40-60) H Cholesterol/HDL Ratio 1.0 Vitamin B12 Level 1180 pg/mL (247-911) H 25-Hydroxy Vitamin D Total 47.6 ng/mL (30-100) Thyroxine (T4) 7.1 ug/dL (4.5-12.0) Total Triiodothyronine (TT3) 65 ng/dL (71-180) L Treponema pallidum Antibody Nonreactive (Nonreactive) Current Medications: Meds: Current Medications Medications (Trade) Dose Ordered Sig/Williams Route PRN Reason Start Time Stop Time Status Last Admin Dose Admin Aspirin (Aspirin Chewable) 81 mg DAILY PO 01/07/20 09:00 01/07/20 08:37 Donepezil HCl (Aricept) 10 mg DAILY PO 01/07/20 09:00 01/07/20 08:37 Levothyroxine Sodium (Synthroid) 88 mcg DAILY06 PO 01/07/20 06:00 01/07/20 06:36 Metoprolol Succinate (Toprol Xl) 12.5 mg DAILY PO 01/07/20 09:00 01/07/20 08:38 Calcium Carbonate/ Glycine (Oscal) 500 mg DAILY PO 01/07/20 09:00 01/07/20 08:38 Lamotrigine (LaMICtal) 300 mg DAILY PO 01/07/20 09:00 01/07/20 08:38 Multivitamins/ Calcium (Thera-M Plus) 1 tab DAILY PO 01/07/20 09:00 01/07/20 08:38 Sertraline HCl (Zoloft) 50 mg DAILY PO 01/07/20 09:00 01/08/20 21:00 01/07/20 08:39 Quetiapine Fumarate (SEROquel) 12.5 mg 0900,1700 PO 01/07/20 18:00 01/07/20 18:08 I have reviewed the current psychotropics carefully including drug interactions. Risk benefit ratio favors no change other than as noted in my dictated progress note. Diagnosis: Problems: (1) Major depressive disorder, recurrent episode (2) Mild cognitive impairment (3) Anxiety disorder, unspecified AGNIESZKA COLLADO MD Jan 07, 2020 21:49
[2020-01-08 01:07] LABS: HEMOGLOBIN A1C 5.9 % (4.8-5.6)
[2020-01-08 06:07] VITALS: BP 168/76
[2020-01-08] MEDS: LEVOTHYROXINE 88 MCG TABLET PO SCH (06:20)
[2020-01-08] MEDS: CALCIUM CARBONATE 500 MG TABLET PO SCH (08:16)
[2020-01-08] MEDS: SERTRALINE 50 MG TABLET. PO SCH (08:16)
[2020-01-08] MEDS: FAMOTIDINE 20 MG TABLET PO SCH ×2 (08:16→19:21)
[2020-01-08] MEDS: DOCUSATE SODIUM 100 MG CAPSULE PO SCH ×2 (08:17→19:21)
[2020-01-08] MEDS: DONEPEZIL HCL 10 MG TABLET PO SCH (08:17)
[2020-01-08] MEDS: METOPROLOL SUCC 24HR ER 25 MG TAB.ER.24H. PO SCH (08:19)
[2020-01-08] MEDS: lamoTRIgine 100 MG TABLET. PO SCH (08:19)
[2020-01-08] MEDS: ASPIRIN CHEWABLE 81 MG TABLET. PO SCH (08:19)
[2020-01-08] MEDS: QUEtiapine 25 MG TABLET. PO SCH ×2 (08:19→17:09)
[2020-01-08] MEDS: MULTIVITAMIN with MINERAL TABLET. PO SCH (08:19)
--- NOTE | 2020-01-08 09:19 | NUR ---
Nursing note: Pt in her room eating breakfast when approached for morning med pass. She is very anxious and breathing rapidly. With attempt at redirection, pt began breathing heavier and sobbed into this nurse's arms "I just don't know what to do, you're going to send me back home and I'm going to keep doing this." Pt was unable to be redirected. PRN was given with her AM meds, which she was compliant in taking whole. Pt later got up and walked towards the door to her room, continuing her rapid breathing and having "fainting" spells. Pt was redirected to sit down and get breathing under control. Staff was able to leave pt in good spirits as she is looking forward to activities this morning. Will continue to monitor.
[2020-01-08] MEDS: ACETAMINOPHEN 325 MG TABLET PO PRN (12:38)
--- NOTE | 2020-01-08 12:49 | NUR ---
Nursing note: Pt c/o pain in her neck from "the stress I cause myself" that she rated 8/10. PRN tylenol given. Will continue to monitor.
[2020-01-08 15:21] VITALS: BP 121/81
[2020-01-08] MEDS: ATORVASTATIN CALCIUM 20 MG TABLET PO SCH (19:22)
[2020-01-08] MEDS: traZODone 50 MG TABLET. PO PRN (19:22)
--- NOTE | 2020-01-08 19:59 | NUR ---
Nursing Note In bed, calm and compliant. Takes po meds willingly no behaviors. States her pain is better in her neck and back and anxiety is better.
--- NOTE | 2020-01-08 20:48 | CONS ---
DATE OF CONSULTATION: 01/08/2020 REASON FOR CONSULTATION: Medical management. HISTORY OF PRESENT ILLNESS: The patient is an 84-year-old female patient, who was originally admitted to [address] [place] [address] on account of worsening symptoms of depression, suicidal ideation when she was living at home with her granddaughter and great grandson. She apparently made active plans to hurt herself and was taken to [facility], treated for UTI, stabilized, but remained depressed and then transferred to us. She stayed on the [facility] side, awaiting COVID-19 testing before coming up to this unit. She has extreme panic attacks. PAST MEDICAL HISTORY: Significant for seizure disorder, atrial fibrillation, hypertension, chronic kidney disease stage 3, recurrent falls, osteoarthritis, cataract, and chronic constipation. PAST SURGICAL HISTORY: Significant for vertebroplasty; however, I do not have any documentation of that. ALLERGIES: She is allergic to PENICILLIN, SULTANA INHIBITORS, and PHENAZOPYRIDINE. FAMILY HISTORY: Noncontributory. SOCIAL HISTORY: She is , lives with her granddaughter. She does not smoke, drink alcohol or use any recreational drugs. MEDICATIONS: She is currently on following medications: She is on Aricept 10 mg once a day, atorvastatin calcium 40 mg at bedtime, metoprolol succinate 12.5 mg once a day, aspirin 81 mg once a day, Tylenol 650 mg every 6 hours p.r.n., lamotrigine 300 mg once a day, sertraline for Zoloft 50 mg daily, sertraline 75 mg once a day, trazodone 50 mg at bedtime, olanzapine 2.5 mg every 2 hours, calcium carbonate 600 mg once a day, Mylanta 15 mL before meals as needed, Colace 100 mg once a day, famotidine 20 mg twice a day, levothyroxine sodium 88 mcg once a day, multivitamin 1 tablet once a day. PHYSICAL EXAMINATION: GENERAL: On examining her today, she was sitting at the edge of the bed, clearly in a panic attack. However, there is no pallor, jaundice or cyanosis. No lymphadenopathy or thyromegaly. No jugular venous distention. No limb edema. VITAL SIGNS: Her heart rate was 65, blood pressure was 121/81, temperature was 97.8, respiratory rate was 18, and oxygen saturation was 100%. HEAD, EYES, EARS, NOSE AND THROAT: Normocephalic, atraumatic. NECK: Supple. CARDIAC: Normal first and second heart sounds. No gallop or murmur. CHEST: Clear to auscultation. No crepitation or rhonchi. ABDOMEN: Distended, soft, nontender. NEUROLOGIC: She is awake, alert, responding appropriately. All cranial nerves intact. EXTREMITIES: She moves extremities without difficulty. She ambulates with a walker. LABORATORY DATA: Showed a white cell count of 6000, hemoglobin 11, hematocrit 32, MCV 93, and platelet count of 180,000. Serum sodium was 140, potassium 4.1, chloride 106, bicarbonate 25, anion gap of 9, BUN 26, creatinine 1.2, estimated GFR was 42 mL per minute. Her glucose was 93, calcium was 7.7, magnesium was 2.2. Total bilirubin, AST, ALT, alkaline phosphatase were normal. Total protein 6.2, albumin was 3.1. Her D-dimer was 0.7 and her Treponema pallidum antibody was nonreactive. IMPRESSION: In summary, this is an 84-year-old female patient who was admitted with major depressive disorder, recurrent with mild cognitive impairment, anxiety disorder. She also was admitted with suicidal agitation with short-term memory deficit. Medically, she has seizure disorder for which she is on Lamictal 300 mg once a day. 1. Atrial fibrillation, rate controlled, not anticoagulated, hypertension, also well controlled. 2. Chronic kidney disease, stable. So far, medically she seemed all in all stable. I will definitely continue on all her current medication. We will obviously follow her periodically and make any necessary adjustments accordingly. Her vitamin B12, 25-hydroxy vitamin D, her TSH as well as T3, total T4 and total T3 are all within normal range. Thank you, Dr. Munson for allowing me to participate in the care of this patient. CHRISTIANO SERRANO MD DR: JAN/tegan JOB#: [id number] / [id number]
--- NOTE | 2020-01-08 22:00 | PDOC ---
Exam Note: Alistair Note: Please also refer to the separate dictated note~for this date of service dictated separately.~Patient seen individually. Discussed the patient with Nursing staff reviewed the chart.~Reviewed interim history and current functioning. Reviewed vital signs,~Labs/ Radiology~and current medications noted below. Continue current treatment with the changes noted in the dictated addendum note Assessment: Vital Signs/I&O: Vital Signs Date Time Temp Pulse Resp B/P (MAP) Pulse Ox O2 Delivery O2 Flow Rate FiO2 01/08/20 19:34 98.3 96 01/08/20 15:21 65 18 121/81 (94) I & O 01/07/20 01/07/20 01/08/20 15:00 23:00 07:00 Intake Total 520 ml 440 ml Balance 520 ml 440 ml Current Medications: I have reviewed the current psychotropics carefully including drug interactions. Risk benefit ratio favors no change other than as noted in my dictated progress note. Diagnosis: Problems: (1) Major depressive disorder, recurrent episode (2) Mild cognitive impairment (3) Anxiety disorder, unspecified AGNIESZKA COLLADO MD Jan 08, 2020 22:00
[2020-01-09 05:56] VITALS: BP 143/80
[2020-01-09] MEDS: LEVOTHYROXINE 88 MCG TABLET PO SCH (06:09)
[2020-01-09] MEDS: CALCIUM CARBONATE 500 MG TABLET PO SCH (08:01)
[2020-01-09] MEDS: FAMOTIDINE 20 MG TABLET PO SCH ×2 (08:01→19:57)
[2020-01-09] MEDS: ASPIRIN CHEWABLE 81 MG TABLET. PO SCH (08:01)
[2020-01-09] MEDS: DONEPEZIL HCL 10 MG TABLET PO SCH (08:01)
[2020-01-09] MEDS: DOCUSATE SODIUM 100 MG CAPSULE PO SCH ×2 (08:01→19:57)
[2020-01-09] MEDS: SERTRALINE 50 MG TABLET. PO SCH (08:02)
[2020-01-09] MEDS: MULTIVITAMIN with MINERAL TABLET. PO SCH (08:02)
[2020-01-09] MEDS: lamoTRIgine 100 MG TABLET. PO SCH (08:02)
[2020-01-09] MEDS: METOPROLOL SUCC 24HR ER 25 MG TAB.ER.24H. PO SCH (08:02)
[2020-01-09] MEDS: QUEtiapine 25 MG TABLET. PO SCH ×3 (08:03→19:57)
--- NOTE | 2020-01-09 08:50 | NUR ---
Nursing note: Pt woke up at shift change and was immediately very anxious, walking to her door way sobbing, breathing rapidly and getting weak in the knees. Pt was assisted back to her bed and encouraged to do deep breathing exercises that had been worked on the day before. Pt was eventually able to relax and get her breathing under control. She was compliant with her meds whole and cooperative with her assessment. She is currently sitting on the edge of her bed eating breakfast. Will continue to monitor.
--- NOTE | 2020-01-09 10:00 | NUR ---
Nursing note: Pt very anxious about having COVID swab done. PRN provided prior to being swabbed. COVID swab completed and sent to the lab.
[2020-01-09] MEDS ORDERED: QUEtiapine 25 MG TABLET. PO SCH (13:00)
[2020-01-09 15:07] VITALS: BP 149/86
--- NOTE | 2020-01-09 17:02 | NUR ---
SW left a message for pt son Giuseppe to contact SW when possible re: an update on pt progress and to discuss placement.
[2020-01-09] MEDS: ATORVASTATIN CALCIUM 20 MG TABLET PO SCH (19:57)
--- NOTE | 2020-01-09 20:31 | NUR ---
Nursing Note: Location of Patient during Assessment: Pt walking in hallway with mask on at shift change. Behaviors Mood and Affect this shift: Pt has been calm and pleasant thus far this evening. Medication Compliant: Compliant with HS medications administered whole. Assessment Compliant: Cooperative and compliant with assessment. Response After Interventions: Pt currently resting quietly in bed with eyes closed.
--- NOTE | 2020-01-09 21:53 | PDOC ---
Exam Note: Alistair Note: Please also refer to the separate dictated note~for this date of service dictated separately.~Patient seen individually. Discussed the patient with Nursing staff reviewed the chart.~Reviewed interim history and current functioning. Reviewed vital signs,~Labs/ Radiology~and current medications noted below. Continue current treatment with the changes noted in the dictated addendum note Assessment: Vital Signs/I&O: Vital Signs Date Time Temp Pulse Resp B/P (MAP) Pulse Ox O2 Delivery O2 Flow Rate FiO2 01/09/20 15:07 97.6 75 20 149/86 (107) 100 Room Air I & O 01/08/20 01/08/20 01/09/20 15:00 23:00 07:00 Intake Total 480 ml 480 ml Balance 480 ml 480 ml Current Medications: Meds: Current Medications Medications (Trade) Dose Ordered Sig/Williams Route PRN Reason Start Time Stop Time Status Last Admin Dose Admin Sertraline HCl (Zoloft) 75 mg DAILY PO 01/09/20 09:00 01/09/20 08:02 Quetiapine Fumarate (SEROquel) 25 mg 0900,1700 PO 01/09/20 09:00 01/09/20 17:26 DC 01/09/20 16:57 Quetiapine Fumarate (SEROquel) 12.5 mg 1300 PO 01/09/20 13:00 01/09/20 17:26 DC 01/09/20 13:56 Quetiapine Fumarate (SEROquel) 25 mg QID PO 01/09/20 21:00 01/09/20 19:57 I have reviewed the current psychotropics carefully including drug interactions. Risk benefit ratio favors no change other than as noted in my dictated progress note. Diagnosis: Problems: (1) Major depressive disorder, recurrent episode (2) Mild cognitive impairment (3) Anxiety disorder, unspecified AGNIESZKA COLLADO MD Jan 09, 2020 21:53
[2020-01-10] MEDS: LEVOTHYROXINE 88 MCG TABLET PO SCH (05:42)
[2020-01-10 06:12] VITALS: BP 154/80
--- NOTE | 2020-01-10 06:32 | PDOC ---
Exam Note: Alistair Note: This note is a late entry for 01/07/2020 covers elements not covered in my initial note. Subjective: The patient was reviewed on telehealth rounds due to COVID-19 restrictions on the unit in the evening of 01/07/2020 with Kiah JEFFERSON. She remains somewhat anxious, little labile but better than before. She remains in a wheelchair intermittently with a walker, still appears depressed at times but better than before. Review of Systems: She is somewhat hard of hearing. Impaired ambulation. No CV, , pulmonary system symptoms on review. Mental Status Exam: The patient is oriented to herself and situation. She does have short-term memory deficits but aware that she is in the hospital. She has been little less anxious and labile. Speech has some latency, coherent. Abstraction fair. Computation impaired. Language functions intact. Attention span is short. Short-term memory has some impairment. Mood is depressed, anxious but better than before. No suicidal or homicidal ideation. Laboratory Data: Reviewed. Impression: Major depressive disorder recurrent. Anxiety disorder unspecified. Mild cognitive impairment. Plan: No change from initial note. We have initiated Seroquel 12.5 mg 9 a.m. and 5 p.m. in addition to Zoloft which has been increased and she remains on Lamictal for her seizures, Aricept is unchanged. We will adjust further as clinically indicated. Assessment: Vital Signs/I&O: Vital Signs Date Time Temp Pulse Resp B/P (MAP) Pulse Ox O2 Delivery O2 Flow Rate FiO2 01/10/20 06:12 98.2 73 16 154/80 (104) 95 Room Air I & O 01/09/20 01/09/20 01/10/20 15:00 23:00 07:00 Intake Total 600 ml 480 ml Balance 600 ml 480 ml Current Medications: Meds: Current Medications Medications (Trade) Dose Ordered Sig/Williams Route PRN Reason Start Time Stop Time Status Last Admin Dose Admin Sertraline HCl (Zoloft) 75 mg DAILY PO 01/09/20 09:00 01/09/20 08:02 Quetiapine Fumarate (SEROquel) 25 mg 0900,1700 PO 01/09/20 09:00 01/09/20 17:26 DC 01/09/20 16:57 Quetiapine Fumarate (SEROquel) 12.5 mg 1300 PO 01/09/20 13:00 01/09/20 17:26 DC 01/09/20 13:56 Quetiapine Fumarate (SEROquel) 25 mg QID PO 01/09/20 21:00 01/09/20 19:57 I have reviewed the current psychotropics carefully including drug interactions. Risk benefit ratio favors no change other than as noted in my dictated progress note. Diagnosis: Problems: (1) Major depressive disorder, recurrent episode (2) Mild cognitive impairment (3) Anxiety disorder, unspecified AGNIESZKA COLLADO MD Jan 10, 2020 06:32
--- NOTE | 2020-01-10 06:41 | PDOC ---
Exam Note: Alistair Note: This note is a late entry for 01/08/2020 covers elements not covered in my initial note. Subjective: The patient was seen face to face in the evening of 01/08/2020 with Karen JEFFERSON. Discussed with nursing staff, reviewed the chart. Also met with Dr. Irizarry evening of 01/07. The patient slept 10 hours previous night. She has been extremely anxious, tearful, marked lability of her mood is evident. She did receive Zyprexa h.s. and in the morning for mood stabilization with limited effect. We had also initiated Seroquel 12.5 mg twice a day. She remains hyperverbal, distractible, anxious, restless, extremely agitated as I met with her. Review of Systems: Ambulation impaired with walker. No CV, , pulmonary, eye system symptoms on review. Mental Status Exam: The patient is oriented to herself and situation. Speech is coherent, rapid at times. Abstraction fair. Computation impaired. Language functions intact. Attention span is short. Mood and affect remains labile, tearful, anxious, difficult to redirect as I met with her individually in her room. Laboratory Data: Reviewed. Impression: Major depressive disorder recurrent. Anxiety disorder unspecified. Mild cognitive impairment. Plan: No change from initial note. We will increase the Seroquel to 25 mg 9 a.m., 5 p.m. and 12.5 mg 1 p.m. Continue Zoloft which we are gradually increasing. Maintain Lamictal. We will make further adjustments as clinically indicated. Assessment: Vital Signs/I&O: Vital Signs Date Time Temp Pulse Resp B/P (MAP) Pulse Ox O2 Delivery O2 Flow Rate FiO2 01/10/20 06:12 98.2 73 16 154/80 (104) 95 Room Air I & O 01/09/20 01/09/20 01/10/20 15:00 23:00 07:00 Intake Total 600 ml 480 ml Balance 600 ml 480 ml Current Medications: Meds: Current Medications Medications (Trade) Dose Ordered Sig/Williams Route PRN Reason Start Time Stop Time Status Last Admin Dose Admin Sertraline HCl (Zoloft) 75 mg DAILY PO 01/09/20 09:00 01/09/20 08:02 Quetiapine Fumarate (SEROquel) 25 mg 0900,1700 PO 01/09/20 09:00 01/09/20 17:26 DC 01/09/20 16:57 Quetiapine Fumarate (SEROquel) 12.5 mg 1300 PO 01/09/20 13:00 01/09/20 17:26 DC 01/09/20 13:56 Quetiapine Fumarate (SEROquel) 25 mg QID PO 01/09/20 21:00 01/09/20 19:57 I have reviewed the current psychotropics carefully including drug interactions. Risk benefit ratio favors no change other than as noted in my dictated progress note. Diagnosis: Problems: (1) Major depressive disorder, recurrent episode (2) Mild cognitive impairment (3) Anxiety disorder, unspecified AGNIESZKA COLLADO MD Jan 10, 2020 06:41
[2020-01-10] MEDS: DOCUSATE SODIUM 100 MG CAPSULE PO SCH ×2 (08:24→21:32)
[2020-01-10] MEDS: DONEPEZIL HCL 10 MG TABLET PO SCH (08:24)
[2020-01-10] MEDS: lamoTRIgine 100 MG TABLET. PO SCH (08:24)
[2020-01-10] MEDS: FAMOTIDINE 20 MG TABLET PO SCH ×2 (08:24→21:31)
[2020-01-10] MEDS: CALCIUM CARBONATE 500 MG TABLET PO SCH (08:24)
[2020-01-10] MEDS: QUEtiapine 25 MG TABLET. PO SCH ×4 (08:25→21:32)
[2020-01-10] MEDS: MULTIVITAMIN with MINERAL TABLET. PO SCH (08:25)
[2020-01-10] MEDS: ASPIRIN CHEWABLE 81 MG TABLET. PO SCH (08:25)
[2020-01-10] MEDS: SERTRALINE 50 MG TABLET. PO SCH (08:25)
[2020-01-10] MEDS: METOPROLOL SUCC 24HR ER 25 MG TAB.ER.24H. PO SCH (08:25)
--- NOTE | 2020-01-10 09:00 | NUR ---
Patient reports that she has been constipated, documentation confirms this. PRN MOM provided per order. Patient on scheduled colace but states that she also takes miralax at home. Will speak with Dr about possibly ordering miralax.
--- NOTE | 2020-01-10 10:26 | NUR ---
WEEKLY ACTIVITY THERAPY NOTE Date of Admission: 01/05 Date of AT Assessment: 01/06 Precipitating behaviors that initiated intake and admission: SI Goal aimed:increase stress management/relaxation and community resources Initial Goal: Pt will participate in at least three group Activity Therapy sessions per week. Weekly progress towards goal: on track, two groups over the last three days Group participation level: 2 full Weekly highlights: able to regain control over anxiety with direct support and guidance Behaviors observed: anxious-rapid breathing at times but able to engage in focus activities- coloring, guided meditation, enjoys praying, declined a few groups but pleasant Plan: no change to goal Beneficial adaptations: coloring, weighted blanket
--- NOTE | 2020-01-10 11:15 | TX PLAN ---
Interdisciplinary Tx Plan Admission Information Jan 06, 2020 at 14:00 Legal Status (on Admission): Voluntary DPOA/Guardian Name: Giuseppe Dinh Contact Verified Code Status: DNR Allergies: Coded Allergies: SULTANA Inhibitors (Verified Allergy, Unknown, 01/01/20) Penicillins (Verified Allergy, Unknown, 01/01/20) phenazopyridine (Verified Allergy, Unknown, 01/01/20) Diagnoses Primary Diagnosis: MDD Reasons for Admission: Aggressive, Depressed, Suicidal ideation Problem in Patient's Words: I have trouble at home and am not dealing with it well. Additional Admission Comments: According to the intake, pt is SI, throughing herself on the floor "to ". Pt is increasingly depressed and hits her head against the bed rails. Aggressive with granddtr. Problems Active Problems: Depression Confusion Inactive Problems: Medication Mgmt Pt Strengths/Limitations Ability for [place]: Poor Cognitive Functioning/Ability: Fair Communication Skills/Ability: Fair Financial Resources: Fair Insight/Judgement: Fair Intellectual Ability: Fair Physical Health: Poor Social Skills: Fair Stability in Family: Fair Stability in School/Work: Poor Verbal Skills: Fair Discharge Criteria Discharge Criteria: No need for close observ., Adequate arrangements @DC, Improved behavior, Improved mood/thought Preliminary Discharge Plan Preliminary DC Plan: Placement Needed, Other Other Arrangements: May need referrals to [facility]/ at discharge Special Precautions Fall Risk: Moderate Initial D/C Plan Undecided at this time; home vs. placement Identified Discharge Needs: Potential referrals needed in the event family decides not to have pt home. Currently Utilized Resources Currently Utilized Resources/P: Primary Care Physician Referrals Community Resources: Mental Health Services potential start up for hospice Identified Problems/Hx/Goals Objectives/Short-Term Goals Short Term Goals: Dec. Aggression, Dec. Symp. Depression, Medication Stabilization, Promote Coping Skill Short Term Goals in Patient's: Figure out my next steps. I want to go home but my family may decide differently. Interventions/Frequency Staff Interventions/Frequency&: Psychiatrist to assess pt at least 3x per week for medication management. facilities maintenance worker to asses pt at least 2x per week and continually assess discharge needs/ barriers. Nursing to assess behaviors, medications and complete 15 minute checks daily. Encourage participation in group activities (if applicable) or 1:1 engagement based off Activities Dept. 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 Education: Pt reports graduating HS (12th grade) Community Follow-up Primary Care Physician Community Provider/Family Inpu: She is just having more troubles with her grandaughter and she can't care for her anymore. It maybe time to send her to a long term. Treatment Plan Explained Patient/Skin Lifter Bacon had this treatment plan explained to him/her as indicated by the signature below and has been given the opportunity to ask questions and make suggestions: Date: Patient/Skin Lifter Bacon Signature: Status Update Update Pt is eating roughly 75-100% and sleeping on average 8.5 hours. Pt is highly anxious and very concerned about her discharge plans. Activities has been doing breathing exercises and attempts to teach pt techniques for when she feels herself becoming anxious. Pt is medication compliant and compliant with all st aff directions. Pt is on Lamictal, Aricept, Zoloft and Seroquel; there was discussion if Luvox would be appropriate for pt; in which at this time, the team will see how pt does on Zoloft and can re-visit the medication potential for Luvox at a later time. SW will be working with the family as they are looking for potentials for placement in the event that pt son is able to work out pt financials. MICHAEL MITCHELL Jan 10, 2020 11:14
--- NOTE | 2020-01-10 11:33 | NUR ---
Patient has been pleasant and calm this shift. She denied pain when asked and does not appear anxious at this time. HS nurse gave patient weighted blanket to sleep last night and that seemed to help. Patient has been working on some detailed coloring pages and does a nice job, as she appears to stays focused while coloring. Patient told nurse she is forgetful, she asked nurses name twice. Cooperative with assessment and compliant with medications. She takes her medications whole with water. Patients COVID19 test from 01/08 results are in and it was negative. Patient seems very concerned about her dentures and asked for them to be locked up in the closet between meals because "they cost a lot of money". She has mentioned this more that once. Dentures not locked up at this time r/t it will be lunch time in 20 minutes.
[2020-01-10] MEDS: ACETAMINOPHEN 325 MG TABLET PO PRN (13:51)
--- NOTE | 2020-01-10 13:51 | NUR ---
Patient lying in bed when nurse entered room with 1300 medications. Patient reports pain in her neck and was rubbing her neck. When asked she stated this is not a new pain, she has had it before. PRN tylenol administered per order for pain. Will continue to monitor.
[2020-01-10 15:32] VITALS: BP 176/79
[2020-01-10] MEDS: ATORVASTATIN CALCIUM 20 MG TABLET PO SCH (21:32)
--- NOTE | 2020-01-10 21:46 | PDOC ---
Exam Note: Alistair Note: Please also refer to the separate dictated note~for this date of service dictated separately.~Patient seen individually. Discussed the patient with Nursing staff reviewed the chart.~Reviewed interim history and current functioning. Reviewed vital signs,~Labs/ Radiology~and current medications noted below. Continue current treatment with the changes noted in the dictated addendum note Assessment: Vital Signs/I&O: Vital Signs Date Time Temp Pulse Resp B/P (MAP) Pulse Ox O2 Delivery O2 Flow Rate FiO2 01/10/20 15:32 98.5 65 17 176/79 (111) 100 Room Air I & O 01/09/20 01/09/20 01/10/20 15:00 23:00 07:00 Intake Total 600 ml 480 ml Balance 600 ml 480 ml Current Medications: I have reviewed the current psychotropics carefully including drug interactions. Risk benefit ratio favors no change other than as noted in my dictated progress note. Diagnosis: Problems: (1) Major depressive disorder, recurrent episode (2) Mild cognitive impairment (3) Anxiety disorder, unspecified AGNIESZKA COLLADO MD Jan 10, 2020 21:46
--- NOTE | 2020-01-11 04:25 | NUR ---
Nursing Note The patient was located in her room for her assessment and medication pass. The patient took her medication whole and was pleasant during interactions with this nurse. The patient requested PRN Mylanta with her HS medication r/t upset stomach. The patient is currently sleeping in her room.
[2020-01-11] MEDS: LEVOTHYROXINE 88 MCG TABLET PO SCH (05:50)
--- NOTE | 2020-01-11 06:23 | PDOC ---
Exam Note: Alistair Note: This note is a late entry for 01/09/2020 covers elements not covered in my initial note. Subjective: The patient was seen face to face in the evening of 01/09/2020 with Karen JEFFERSON. Discussed with nursing staff, reviewed the chart. She slept 8-1/2 hours previous night. She has been hyperventilating less, less anxious and is able to discuss this with me individually. Earlier in the day she was somewhat short of breath at times. Review of Systems: Ambulation impaired with walker. She is hard of hearing. No CV, , pulmonary, eye system symptoms on review. Mental Status Exam: Reasonably oriented. Speech is coherent. Abstraction fair. Computation impaired. Language functions intact. Attention span is short. Mood and affect remains somewhat dysphoric, anxious, labile but better than before. Laboratory Data: Reviewed. Impression: Major depressive disorder recurrent. Anxiety disorder unspecified. Mild cognitive impairment. Plan: No change from initial note. Increase Seroquel from 25 mg 0900, 1700 and 12.5 mg at 1300 to 25 mg 4 times a day. Maintain Lamictal, Aricept. Zoloft has been gradually increased. We will make further adjustments as clinically indicated. Assessment: Vital Signs/I&O: Vital Signs Date Time Temp Pulse Resp B/P (MAP) Pulse Ox O2 Delivery O2 Flow Rate FiO2 01/10/20 15:32 98.5 65 17 176/79 (111) 100 Room Air I & O 01/10/20 01/10/20 01/11/20 15:00 23:00 07:00 Intake Total 656 ml 440 ml Balance 656 ml 440 ml Current Medications: I have reviewed the current psychotropics carefully including drug interactions. Risk benefit ratio favors no change other than as noted in my dictated progress note. Diagnosis: Problems: (1) Major depressive disorder, recurrent episode (2) Mild cognitive impairment (3) Anxiety disorder, unspecified AGNIESZKA COLLADO MD Jan 11, 2020 06:23
[2020-01-11 06:30] VITALS: BP 144/78
--- NOTE | 2020-01-11 06:48 | PDOC ---
Exam Note: Alistair Note: This note is a late entry for 01/10/2020 covers elements not covered in my initial note. Subjective: The patient was reviewed on telehealth rounds in the morning of 01/10/2020 with treatment team with Dave, social service staff, Elin JEFFERSON, and Natalie Activity therapy. Discussed with nursing staff, reviewed the chart. Sleeping average 8-1/2 hours. Appetite is 85%. The patient has been less anxious, less tearful, less labile. Review of Systems: Ambulation impaired with walker. She is hard of hearing. No CV, , pulmonary, eye system symptoms on review. Mental Status Exam: Reasonably oriented. She is much less anxious, very appreciative that she is feeling better when I reviewed her on telehealth rounds in the evening. Speech is coherent. Abstraction fair. Computation impaired. Language functions intact. Attention span is short. Mood and affect remains somewhat dysphoric, anxious, labile but better than before. No suicidal or homicidal ideation. Laboratory Data: Reviewed. Impression: Major depressive disorder recurrent. Anxiety disorder unspecified. Mild cognitive impairment. Plan: No change from initial note. We may need to increase Seroquel further as clinically indicated. Assessment: Vital Signs/I&O: Vital Signs Date Time Temp Pulse Resp B/P (MAP) Pulse Ox O2 Delivery O2 Flow Rate FiO2 01/11/20 06:30 97.9 74 22 144/78 (100) 95 01/10/20 15:32 Room Air I & O 01/10/20 01/10/20 01/11/20 15:00 23:00 07:00 Intake Total 656 ml 440 ml Balance 656 ml 440 ml Current Medications: I have reviewed the current psychotropics carefully including drug interactions. Risk benefit ratio favors no change other than as noted in my dictated progress note. Diagnosis: Problems: (1) Major depressive disorder, recurrent episode (2) Mild cognitive impairment (3) Anxiety disorder, unspecified AGNIESZKA COLLADO MD Jan 11, 2020 06:48
[2020-01-11] MEDS: DOCUSATE SODIUM 100 MG CAPSULE PO SCH ×2 (07:39→20:32)
[2020-01-11] MEDS: FAMOTIDINE 20 MG TABLET PO SCH ×2 (07:40→20:32)
[2020-01-11] MEDS: SERTRALINE 50 MG TABLET. PO SCH (07:40)
[2020-01-11] MEDS: DONEPEZIL HCL 10 MG TABLET PO SCH (07:40)
[2020-01-11] MEDS: CALCIUM CARBONATE 500 MG TABLET PO SCH (07:40)
[2020-01-11] MEDS: MULTIVITAMIN with MINERAL TABLET. PO SCH (07:40)
[2020-01-11] MEDS: lamoTRIgine 100 MG TABLET. PO SCH (07:40)
[2020-01-11] MEDS: ASPIRIN CHEWABLE 81 MG TABLET. PO SCH (07:40)
[2020-01-11] MEDS: QUEtiapine 25 MG TABLET. PO SCH ×4 (07:41→20:32)
[2020-01-11] MEDS: METOPROLOL SUCC 24HR ER 25 MG TAB.ER.24H. PO SCH (07:41)
[2020-01-11] MEDS ORDERED: BISACODYL 10 MG SUPP.RECT PR PRN (08:00)
[2020-01-11] MEDS ORDERED: CYCLOBENZAPRINE 10 MG TABLET. PO ONE (13:15)
[2020-01-11 15:01] VITALS: BP 127/70
--- NOTE | 2020-01-11 16:30 | NUR ---
Pt has been less anxious today. Up to nurse's station for several requests. Pt wanted miralax daily, c/o pain in L shoulder that radiated up neck, in which Tylenol did not help, assistance with hearing aide insertion and asked for multiple coloring pages. Has been compliant with meds and cares. Out for shower in am. Tolerated well.
--- NOTE | 2020-01-11 16:37 | NUR ---
REGLA contacted pt grand-daughter Eleonora, who wanted to know how pt was doing. Pt son, Giuseppe, happen to be there as well. REGLA informed the family that pt is compliant with medications and cares. Her greatest behavior right now is due to her anxiety and need to be calmed down and reassured that things are okay. REGLA explained pt is concerned about her discharge plan and knows that the family is looking for something. Eleonora reports that the family is in the works in trying to get information on pt life insurance plan and other avenues that pt has financially line out. REGLA received the grand-daughter's e-mail and will send her placement options so that they can call/look at those in the process. All parties agree for a discharge plan of Sunday 01/21, since placement is the end goal. REGLA will continue to update the family and work on getting an appropriate placement for pt set up.
[2020-01-11] MEDS: ATORVASTATIN CALCIUM 20 MG TABLET PO SCH (20:32)
[2020-01-11] MEDS: traZODone 50 MG TABLET. PO PRN (20:32)
--- NOTE | 2020-01-11 22:40 | PDOC ---
Exam Note: Alistair Note: Please also refer to the separate dictated note~for this date of service dictated separately.~Patient seen individually. Discussed the patient with Nursing staff reviewed the chart.~Reviewed interim history and current functioning. Reviewed vital signs,~Labs/ Radiology~and current medications noted below. Continue current treatment with the changes noted in the dictated addendum note Assessment: Vital Signs/I&O: Vital Signs Date Time Temp Pulse Resp B/P (MAP) Pulse Ox O2 Delivery O2 Flow Rate FiO2 01/11/20 15:01 97.9 67 16 127/70 (89) 98 Room Air I & O 01/10/20 01/10/20 01/11/20 15:00 23:00 07:00 Intake Total 656 ml 440 ml Balance 656 ml 440 ml Current Medications: Meds: Current Medications Medications (Trade) Dose Ordered Sig/Williams Route PRN Reason Start Time Stop Time Status Last Admin Dose Admin Cyclobenzaprine HCl (Flexeril) 10 mg 1X ONCE PO 01/11/20 13:15 01/11/20 13:16 DC 01/11/20 13:15 I have reviewed the current psychotropics carefully including drug interactions. Risk benefit ratio favors no change other than as noted in my dictated progress note. Diagnosis: Problems: (1) Major depressive disorder, recurrent episode (2) Mild cognitive impairment (3) Anxiety disorder, unspecified AGNIESZKA COLLADO MD Jan 11, 2020 22:40
--- NOTE | 2020-01-12 03:33 | NUR ---
Pt has been in bed this shift and has slept well. She was easily awaken for meds which she took whole. When awake she was pleasant and cooperative and oriented at that time. No behaviors tonight.
[2020-01-12] MEDS: LEVOTHYROXINE 88 MCG TABLET PO SCH (05:39)
[2020-01-12 05:53] VITALS: BP 137/72
--- NOTE | 2020-01-12 06:31 | PDOC ---
Exam Note: Alistair Note: This note is a late entry for 01/11/2020 covers elements not covered in my initial note. Subjective: The patient was reviewed on telehealth rounds in the evening of 01/11/2020 with Shara JEFFERSON. Discussed with nursing staff, reviewed the chart. The patient slept 8-1/2 hours previous night. She had some constipation. Received MiraLax in the morning. She is somatically preoccupied. She complained of neck shoulder pain. She did receive Flexeril, which seemed to help. She has been yelling, less labile. Review of Systems: Ambulation impaired with walker. She is hard of hearing. No CV, , pulmonary, eye system symptoms on review. Mental Status Exam: Reasonably oriented. Speech is coherent, less pressured. Abstraction fair. Computation impaired. Language function intact. Mood and affect improved. Laboratory Data: Reviewed. Impression: Major depressive disorder recurrent. Anxiety disorder unspecified. Mild cognitive impairment. Impulse control disorder unspecified. Plan: No change from initial note. Assessment: Vital Signs/I&O: Vital Signs Date Time Temp Pulse Resp B/P (MAP) Pulse Ox O2 Delivery O2 Flow Rate FiO2 01/12/20 05:53 98.2 69 18 137/72 (93) 95 01/11/20 15:01 Room Air I & O 01/11/20 01/11/20 01/12/20 15:00 23:00 07:00 Intake Total 986 ml 450 ml Balance 986 ml 450 ml Current Medications: Meds: Current Medications Medications (Trade) Dose Ordered Sig/Williams Route PRN Reason Start Time Stop Time Status Last Admin Dose Admin Cyclobenzaprine HCl (Flexeril) 10 mg 1X ONCE PO 01/11/20 13:15 01/11/20 13:16 DC 01/11/20 13:15 I have reviewed the current psychotropics carefully including drug interactions. Risk benefit ratio favors no change other than as noted in my dictated progress note. Diagnosis: Problems: (1) Major depressive disorder, recurrent episode (2) Mild cognitive impairment (3) Anxiety disorder, unspecified AGNIESZKA COLLADO MD Jan 12, 2020 06:31
[2020-01-12] MEDS: CYCLOBENZAPRINE 10 MG TABLET. PO PRN ×2 (06:43→13:42)
[2020-01-12] MEDS: METOPROLOL SUCC 24HR ER 25 MG TAB.ER.24H. PO SCH (08:23)
[2020-01-12] MEDS: FAMOTIDINE 20 MG TABLET PO SCH ×2 (08:23→20:36)
[2020-01-12] MEDS: ASPIRIN CHEWABLE 81 MG TABLET. PO SCH (08:24)
[2020-01-12] MEDS: SERTRALINE 50 MG TABLET. PO SCH (08:24)
[2020-01-12] MEDS: CALCIUM CARBONATE 500 MG TABLET PO SCH (08:24)
[2020-01-12] MEDS: DOCUSATE SODIUM 100 MG CAPSULE PO SCH ×2 (08:24→20:35)
[2020-01-12] MEDS: MULTIVITAMIN with MINERAL TABLET. PO SCH (08:24)
[2020-01-12] MEDS: DONEPEZIL HCL 10 MG TABLET PO SCH (08:24)
[2020-01-12] MEDS: QUEtiapine 25 MG TABLET. PO SCH ×4 (08:24→20:36)
[2020-01-12] MEDS: lamoTRIgine 100 MG TABLET. PO SCH (08:24)
[2020-01-12] MEDS: POLYETHYLENE GLYCOL 3350 17 GM PACKET. PO SCH (08:25)
[2020-01-12] MEDS: ACETAMINOPHEN 325 MG TABLET PO PRN (09:51)
[2020-01-12 15:49] VITALS: BP 168/83
--- NOTE | 2020-01-12 18:30 | NUR ---
Pt has been less anxious today. Still has complaints of neck muscle pain somewhat relieved with flexeril. Has been compliant with meds and cares. Has been coloring in room most of day.
[2020-01-12] MEDS: ATORVASTATIN CALCIUM 20 MG TABLET PO SCH (20:36)
[2020-01-12] MEDS: traZODone 50 MG TABLET. PO PRN (20:37)
--- NOTE | 2020-01-12 21:53 | PDOC ---
Exam Note: Alistair Note: Please also refer to the separate dictated note~for this date of service dictated separately.~Patient seen individually. Discussed the patient with Nursing staff reviewed the chart.~Reviewed interim history and current functioning. Reviewed vital signs,~Labs/ Radiology~and current medications noted below. Continue current treatment with the changes noted in the dictated addendum note Assessment: Vital Signs/I&O: Vital Signs Date Time Temp Pulse Resp B/P (MAP) Pulse Ox O2 Delivery O2 Flow Rate FiO2 01/12/20 15:49 97.2 72 16 168/83 (111) 99 01/11/20 15:01 Room Air I & O 01/11/20 01/11/20 01/12/20 15:00 23:00 07:00 Intake Total 986 ml 450 ml Balance 986 ml 450 ml Current Medications: Meds: Current Medications Medications (Trade) Dose Ordered Sig/Williams Route PRN Reason Start Time Stop Time Status Last Admin Dose Admin Polyethylene Glycol (miraLAX) 17 gm DAILY PO 01/12/20 09:00 01/12/20 08:25 I have reviewed the current psychotropics carefully including drug interactions. Risk benefit ratio favors no change other than as noted in my dictated progress note. Diagnosis: Problems: (1) Major depressive disorder, recurrent episode (2) Mild cognitive impairment (3) Anxiety disorder, unspecified AGNIESZKA COLLADO MD Jan 12, 2020 21:53
--- NOTE | 2020-01-12 23:59 | NUR ---
Patient is awake in bed on assumption of care. She is in pleasant spirits. Calm, cooperative and compliant with assessments and medications taken whole. No agitation. Patient denies any pain or discomfort. Denies SI. She appears to be sleeping comfortably at present time. Will continue to monitor.
--- NOTE | 2020-01-13 01:37 | NUR ---
Pt. sleeping on initial rounding upon my arrival to unit. Pt awoke later on and was pleasant with interaction. Pt ambulates independently and has been continent of bowel/bladder. Pt agreed to a snack when asked. I asked pt if she was still wearing her isis hoes, pt did not understand and i clarified by telling her I was referring to the tight things on her legs. pt responded, " oh yes, i took those off before laying down" Pt has been resting in room comfortably during the PM part of shift
[2020-01-13] MEDS: LEVOTHYROXINE 88 MCG TABLET PO SCH (05:06)
[2020-01-13 05:55] VITALS: BP 135/75
[2020-01-13] MEDS: CYCLOBENZAPRINE 10 MG TABLET. PO PRN ×2 (06:41→13:30)
--- NOTE | 2020-01-13 06:54 | PDOC ---
Exam Note: Alistair Note: This note is a late entry for 01/12/2020 covers elements not covered in my initial note. Subjective: The patient was reviewed on telehealth rounds in the evening of 01/12/2020 with Shara JEFFERSON. Discussed with nursing staff, reviewed the chart. The patient is doing better, calmer, does complain of neck pain, but feels relieved with Flexeril. She was sedated this evening on rounds in bed. Review of Systems: Impaired ambulation with walker. She is hard of hearing. No CV, , pulmonary, eye system symptoms on review. Mental Status Exam: Reasonably oriented. Speech has some latency, coherent. Abstraction fair. Computation impaired. Language function intact. Mood and affect is improved. Laboratory Data: Reviewed. Impression: Major depressive disorder recurrent. Mild cognitive impairment. Anxiety disorder unspecified. Impulse control disorder unspecified. Plan: No change from initial note. Assessment: Vital Signs/I&O: Vital Signs Date Time Temp Pulse Resp B/P (MAP) Pulse Ox O2 Delivery O2 Flow Rate FiO2 01/13/20 05:55 98.2 75 18 135/75 (95) 95 01/11/20 15:01 Room Air I & O 01/12/20 01/12/20 01/13/20 15:00 23:00 07:00 Intake Total 600 ml 360 ml 120 ml Balance 600 ml 360 ml 120 ml Current Medications: Meds: Current Medications Medications (Trade) Dose Ordered Sig/Williams Route PRN Reason Start Time Stop Time Status Last Admin Dose Admin Polyethylene Glycol (miraLAX) 17 gm DAILY PO 01/12/20 09:00 01/12/20 08:25 I have reviewed the current psychotropics carefully including drug interactions. Risk benefit ratio favors no change other than as noted in my dictated progress note. Diagnosis: Problems: (1) Impulse control disorder (2) Major depressive disorder, recurrent episode (3) Mild cognitive impairment (4) Anxiety disorder, unspecified AGNIESZKA COLLADO MD Jan 13, 2020 06:54
[2020-01-13] MEDS: DOCUSATE SODIUM 100 MG CAPSULE PO SCH ×2 (08:25→20:47)
[2020-01-13] MEDS: MULTIVITAMIN with MINERAL TABLET. PO SCH (08:25)
[2020-01-13] MEDS: lamoTRIgine 100 MG TABLET. PO SCH (08:25)
[2020-01-13] MEDS: POLYETHYLENE GLYCOL 3350 17 GM PACKET. PO SCH (08:25)
[2020-01-13] MEDS: SERTRALINE 50 MG TABLET. PO SCH (08:26)
[2020-01-13] MEDS: QUEtiapine 25 MG TABLET. PO SCH ×4 (08:26→20:47)
[2020-01-13] MEDS: ASPIRIN CHEWABLE 81 MG TABLET. PO SCH (08:26)
[2020-01-13] MEDS: FAMOTIDINE 20 MG TABLET PO SCH ×2 (08:26→20:48)
[2020-01-13] MEDS: DONEPEZIL HCL 10 MG TABLET PO SCH (08:26)
[2020-01-13] MEDS: CALCIUM CARBONATE 500 MG TABLET PO SCH (08:26)
[2020-01-13] MEDS: METOPROLOL SUCC 24HR ER 25 MG TAB.ER.24H. PO SCH (08:26)
[2020-01-13] MEDS: ACETAMINOPHEN 325 MG TABLET PO PRN (16:21)
[2020-01-13 16:26] VITALS: BP 189/75
--- NOTE | 2020-01-13 17:03 | NUR ---
Pt up in room adl. Has been pleasant. Still has intermittent neck pain. Has been compliant with meds and cares. Out to group x1.
--- NOTE | 2020-01-13 18:01 | NUR ---
Pt c/o anxiety. Pt starting to hyperventilate. Instructed on deep breathing. Zydis given.
[2020-01-13] MEDS: traZODone 50 MG TABLET. PO PRN (20:47)
[2020-01-13] MEDS: ATORVASTATIN CALCIUM 20 MG TABLET PO SCH (20:48)
--- NOTE | 2020-01-13 22:11 | PDOC ---
Exam Note: Alistair Note: Please also refer to the separate dictated note~for this date of service dictated separately.~Patient seen individually. Discussed the patient with Nursing staff reviewed the chart.~Reviewed interim history and current functioning. Reviewed vital signs,~Labs/ Radiology~and current medications noted below. Continue current treatment with the changes noted in the dictated addendum note Assessment: Vital Signs/I&O: Vital Signs Date Time Temp Pulse Resp B/P (MAP) Pulse Ox O2 Delivery O2 Flow Rate FiO2 01/13/20 16:26 98.2 75 16 189/75 (113) 98 01/11/20 15:01 Room Air I & O 01/12/20 01/12/20 01/13/20 15:00 23:00 07:00 Intake Total 600 ml 360 ml 120 ml Balance 600 ml 360 ml 120 ml Current Medications: I have reviewed the current psychotropics carefully including drug interactions. Risk benefit ratio favors no change other than as noted in my dictated progress note. Diagnosis: Problems: (1) Major depressive disorder, recurrent episode (2) Mild cognitive impairment (3) Anxiety disorder, unspecified (4) Impulse control disorder AGNIESZKA COLLADO MD Jan 13, 2020 22:11
--- NOTE | 2020-01-13 23:59 | NUR ---
Patient is awake in her bed on assumption of care. She is in pleasant spirits. Calm, cooperative and compliant with assessments and medications taken whole. No agitation. No complaints of anxiety so far this shift. She denies any pain or discomfort. Denies SI. She appears to be sleeping comfortably at present time. Will continue to monitor.
[2020-01-14] MEDS: CYCLOBENZAPRINE 10 MG TABLET. PO PRN ×2 (05:09→20:27)
[2020-01-14] MEDS: LEVOTHYROXINE 88 MCG TABLET PO SCH (05:09)
[2020-01-14 06:28] VITALS: BP 117/69
--- NOTE | 2020-01-14 06:48 | PDOC ---
Exam Note: Alistair Note: This note is a late entry for 01/13/2020 covers elements not covered in my initial note. Subjective: The patient was reviewed on telehealth rounds in the evening of 01/13/2020 with Moose JEFFERSON. Discussed with nursing staff, reviewed the chart. Per Shara JEFFERSON, she slept 5 hours previous night. She has had a good day. She did get anxious in the evening. Received Zyprexa p.r.n. She has been out in the hallway, had some pop-corns and was in the common area interacting with others. Review of Systems: She is hard of hearing. No CV, , pulmonary, eye system symptoms on review. Mental Status Exam: Reasonably oriented. Speech is coherent. Abstraction fair. Computation impaired. Language function intact. Attention span is short. Mood and affect is improved. Laboratory Data: Reviewed. Impression: Major depressive disorder recurrent. Mild cognitive impairment. Anxiety disorder unspecified. Impulse control disorder unspecified. Plan: No change from initial note. Assessment: Vital Signs/I&O: Vital Signs Date Time Temp Pulse Resp B/P (MAP) Pulse Ox O2 Delivery O2 Flow Rate FiO2 01/14/20 06:28 98.1 72 18 117/69 (85) 95 01/11/20 15:01 Room Air I & O 01/13/20 01/13/20 01/14/20 15:00 23:00 07:00 Intake Total 560 ml 240 ml 100 ml Balance 560 ml 240 ml 100 ml Current Medications: I have reviewed the current psychotropics carefully including drug interactions. Risk benefit ratio favors no change other than as noted in my dictated progress note. Diagnosis: Problems: (1) Major depressive disorder, recurrent episode (2) Mild cognitive impairment (3) Anxiety disorder, unspecified (4) Impulse control disorder AGNIESZKA COLLADO MD Jan 14, 2020 06:48
[2020-01-14 07:36] LABS: CALCIUM 9.3 mg/dL (8.5-10.1); CREATININE 1.6 mg/dL (0.6-1.0); GFR 30.6; POTASSIUM 4.5 mmol/L (3.5-5.1); TOTAL BILIRUBIN 0.1 mg/dL (0.2-1.0); TOTAL PROTEIN 6.1 g/dL (6.4-8.2)
[2020-01-14 07:42] LABS: BASO % 1 % (0-3); EOS # 0.3 x10^3/uL (0.0-0.7); EOS % 5 % (0-3); HEMOGLOBIN 10.4 g/dL (12.0-15.5); LYMPH # 1.1 x10^3/uL (1.0-4.8); LYMPH % 21 % (24-48); MEAN CORPUSCULAR HEMOGLOBIN 31 pg (25-35); MEAN CORPUSCULAR HGB CONC 32 g/dL (31-37); MEAN CORPUSCULAR VOLUME 95 fL (79-100); MONO # 0.6 x10^3/uL (0.0-1.1); MONO % 11 % (0-9); NEUT # 3.2 x10^3uL (1.8-7.7); NEUT % 62 % (31-73); PLATELET COUNT 149 x10^3/uL (140-400); RED BLOOD COUNT 3.35 x10^6/uL (3.50-5.40); RED CELL DISTRIBUTION WIDTH 13.4 % (11.5-14.5); WHITE BLOOD COUNT 5.1 x10^3/uL (4.0-11.0)
[2020-01-14] MEDS: FAMOTIDINE 20 MG TABLET PO SCH ×2 (09:11→20:03)
[2020-01-14] MEDS: lamoTRIgine 100 MG TABLET. PO SCH (09:11)
[2020-01-14] MEDS: QUEtiapine 25 MG TABLET. PO SCH ×4 (09:11→20:04)
[2020-01-14] MEDS: POLYETHYLENE GLYCOL 3350 17 GM PACKET. PO SCH (09:11)
[2020-01-14] MEDS: DOCUSATE SODIUM 100 MG CAPSULE PO SCH ×2 (09:11→20:03)
[2020-01-14] MEDS: CALCIUM CARBONATE 500 MG TABLET PO SCH (09:12)
[2020-01-14] MEDS: ASPIRIN CHEWABLE 81 MG TABLET. PO SCH (09:12)
[2020-01-14] MEDS: METOPROLOL SUCC 24HR ER 25 MG TAB.ER.24H. PO SCH (09:12)
[2020-01-14] MEDS: MULTIVITAMIN with MINERAL TABLET. PO SCH (09:12)
[2020-01-14] MEDS: DONEPEZIL HCL 10 MG TABLET PO SCH (09:12)
[2020-01-14] MEDS: SERTRALINE 50 MG TABLET. PO SCH (09:12)
[2020-01-14] MEDS: METHYL SALICYLATE/MENTHOL TOPICAL OINTMENT 57GM TUBE. TP PRN (10:49)
--- NOTE | 2020-01-14 11:02 | NUR ---
Nursing note: Pt in room for morning med pass. She was calm, pleasant, and compliant. Pt appears much less anxious than she did last week. Pt received a shower after getting her meds and was then complaining of L neck/shoulder pain. PRN analgesic balm was administered. Pt has since been in her room coloring. Will continue to monitor.
[2020-01-14 15:49] VITALS: BP 118/72
[2020-01-14] MEDS: ATORVASTATIN CALCIUM 20 MG TABLET PO SCH (20:04)
--- NOTE | 2020-01-14 22:00 | PDOC ---
Exam Note: Alistair Note: Please also refer to the separate dictated note~for this date of service dictated separately.~Patient seen individually. Discussed the patient with Nursing staff reviewed the chart.~Reviewed interim history and current functioning. Reviewed vital signs,~Labs/ Radiology~and current medications noted below. Continue current treatment with the changes noted in the dictated addendum note Assessment: Vital Signs/I&O: Vital Signs Date Time Temp Pulse Resp B/P (MAP) Pulse Ox O2 Delivery O2 Flow Rate FiO2 01/14/20 15:49 97.8 78 18 118/72 (87) 97 01/11/20 15:01 Room Air I & O 01/13/20 01/13/20 01/14/20 15:00 23:00 07:00 Intake Total 560 ml 240 ml 100 ml Balance 560 ml 240 ml 100 ml Labs: Laboratory Tests Test 01/14/20 06:42 White Blood Count 5.1 x10^3/uL (4.0-11.0) Red Blood Count 3.35 x10^6/uL (3.50-5.40) L Hemoglobin 10.4 g/dL (12.0-15.5) L Hematocrit 32.0 % (36.0-47.0) L Mean Corpuscular Volume 95 fL (79-100) Mean Corpuscular Hemoglobin 31 pg (25-35) Mean Corpuscular Hemoglobin Concent 32 g/dL (31-37) Red Cell Distribution Width 13.4 % (11.5-14.5) Platelet Count 149 x10^3/uL (140-400) Neutrophils (%) (Auto) 62 % (31-73) Lymphocytes (%) (Auto) 21 % (24-48) L Monocytes (%) (Auto) 11 % (0-9) H Eosinophils (%) (Auto) 5 % (0-3) H Basophils (%) (Auto) 1 % (0-3) Neutrophils # (Auto) 3.2 x10^3uL (1.8-7.7) Lymphocytes # (Auto) 1.1 x10^3/uL (1.0-4.8) Monocytes # (Auto) 0.6 x10^3/uL (0.0-1.1) Eosinophils # (Auto) 0.3 x10^3/uL (0.0-0.7) Basophils # (Auto) 0.0 x10^3/uL (0.0-0.2) Sodium Level 138 mmol/L (136-145) Potassium Level 4.5 mmol/L (3.5-5.1) Chloride Level 102 mmol/L (98-107) Carbon Dioxide Level 29 mmol/L (21-32) Anion Gap 7 (6-14) Blood Urea Nitrogen 40 mg/dL (7-20) H Creatinine 1.6 mg/dL (0.6-1.0) H Estimated GFR (Cockcroft-Gault) 30.6 BUN/Creatinine Ratio 25 (6-20) H Glucose Level 96 mg/dL (70-99) Calcium Level 9.3 mg/dL (8.5-10.1) Total Bilirubin 0.1 mg/dL (0.2-1.0) L Aspartate Amino Transferase (AST) 16 U/L (15-37) Alanine Aminotransferase (ALT) 24 U/L (14-59) Alkaline Phosphatase 51 U/L (46-116) Total Protein 6.1 g/dL (6.4-8.2) L Albumin 3.0 g/dL (3.4-5.0) L Albumin/Globulin Ratio 1.0 (1.0-1.7) Current Medications: I have reviewed the current psychotropics carefully including drug interactions. Risk benefit ratio favors no change other than as noted in my dictated progress note. Diagnosis: Problems: (1) Major depressive disorder, recurrent episode (2) Mild cognitive impairment (3) Anxiety disorder, unspecified (4) Impulse control disorder AGNIESZKA COLLADO MD Jan 14, 2020 22:00
--- NOTE | 2020-01-14 23:59 | NUR ---
Patient is awake in her bed on assumption of care. She is in pleasant spirits. Calm, cooperative and compliant with assessments and medications taken whole. No agitation. No complaints of anxiety so far this shift. Complained of sore neck and requested PRN. Flexeril administered with HS meds, with good effect. Denies SI. She appears to be sleeping comfortably at present time. Will continue to monitor.
[2020-01-15] MEDS: LEVOTHYROXINE 88 MCG TABLET PO SCH (05:51)
[2020-01-15 06:28] VITALS: BP 169/88
[2020-01-15] MEDS: CYCLOBENZAPRINE 10 MG TABLET. PO PRN ×2 (06:31→15:09)
[2020-01-15] MEDS: POLYETHYLENE GLYCOL 3350 17 GM PACKET. PO SCH (07:53)
[2020-01-15] MEDS: FAMOTIDINE 20 MG TABLET PO SCH ×2 (07:54→19:55)
[2020-01-15] MEDS: METOPROLOL SUCC 24HR ER 25 MG TAB.ER.24H. PO SCH (07:54)
[2020-01-15] MEDS: DOCUSATE SODIUM 100 MG CAPSULE PO SCH ×2 (07:54→19:55)
[2020-01-15] MEDS: SERTRALINE 50 MG TABLET. PO SCH (07:54)
[2020-01-15] MEDS: lamoTRIgine 100 MG TABLET. PO SCH (07:54)
[2020-01-15] MEDS: ASPIRIN CHEWABLE 81 MG TABLET. PO SCH (07:55)
[2020-01-15] MEDS: QUEtiapine 25 MG TABLET. PO SCH ×4 (07:55→19:55)
[2020-01-15] MEDS: DONEPEZIL HCL 10 MG TABLET PO SCH (07:55)
[2020-01-15] MEDS: MULTIVITAMIN with MINERAL TABLET. PO SCH (07:55)
[2020-01-15] MEDS: CALCIUM CARBONATE 500 MG TABLET PO SCH (07:55)
[2020-01-15] MEDS: ACETAMINOPHEN 325 MG TABLET PO PRN ×3 (07:55→21:33)
--- NOTE | 2020-01-15 09:38 | NUR ---
Nursing note: Pt in her room for morning med pass. She is calm, pleasant and cooperative. She did complain of pain in her neck and requested some tylenol. PRN tylenol provided. Pt denied feeling anxious at that time and said that she had a good night. She is currently sitting in her room coloring pictures. Will continue to monitor.
--- NOTE | 2020-01-15 15:58 | NUR ---
Patient complains of pain and requests a flexeril, an aspirin, and a tylenol. PRN medications provided per eMAR, will continue to monitor.
[2020-01-15 16:06] VITALS: BP 147/77
[2020-01-15] MEDS: traZODone 50 MG TABLET. PO PRN (19:55)
[2020-01-15] MEDS: ATORVASTATIN CALCIUM 20 MG TABLET PO SCH (19:55)
--- NOTE | 2020-01-15 21:02 | NUR ---
Nursing Note: Location of Patient during Assessment: Pt up walking in hallway at shift change with mask on. Behaviors Mood and Affect this shift: Pt calm, pleasant, and cooperative. Medication Compliant: Compliant with medications administered whole. Assessment Compliant: Cooperative and compliant with assessment. Response After Interventions: Pt resting quietly in bed with eyes closed at this time.
--- NOTE | 2020-01-15 21:45 | PDOC ---
Exam Note: Alistair Note: Please also refer to the separate dictated note~for this date of service dictated separately.~Patient seen individually. Discussed the patient with Nursing staff reviewed the chart.~Reviewed interim history and current functioning. Reviewed vital signs,~Labs/ Radiology~and current medications noted below. Continue current treatment with the changes noted in the dictated addendum note Assessment: Vital Signs/I&O: Vital Signs Date Time Temp Pulse Resp B/P (MAP) Pulse Ox O2 Delivery O2 Flow Rate FiO2 01/15/20 16:06 98.1 70 18 147/77 (100) 100 01/11/20 15:01 Room Air I & O 01/14/20 01/14/20 01/15/20 15:00 23:00 07:00 Intake Total 720 ml 180 ml Balance 720 ml 180 ml Current Medications: I have reviewed the current psychotropics carefully including drug interactions. Risk benefit ratio favors no change other than as noted in my dictated progress note. Diagnosis: Problems: (1) Major depressive disorder, recurrent episode (2) Mild cognitive impairment (3) Anxiety disorder, unspecified (4) Impulse control disorder AGNIESZKA COLLADO MD Jan 15, 2020 21:45
[2020-01-16] MEDS: LEVOTHYROXINE 88 MCG TABLET PO SCH (05:26)
[2020-01-16 06:04] VITALS: BP 128/74
[2020-01-16] MEDS: ACETAMINOPHEN 325 MG TABLET PO PRN ×2 (06:20→15:22)
[2020-01-16] MEDS: CYCLOBENZAPRINE 10 MG TABLET. PO PRN ×2 (06:20→15:22)
--- NOTE | 2020-01-16 07:03 | PDOC ---
Exam Note: Alistair Note: This note is a late entry for 01/14/2020 covers elements not covered in my initial note. Subjective: The patient was reviewed on telehealth rounds in the evening of 01/14/2020 with Karen JEFFERSON. Discussed with nursing staff, reviewed the chart. She slept 6-3/4 hours previous night. She does complain of neck pain. Review of Systems: No CV, , pulmonary, eye system symptoms on review. Mental Status Exam: Reasonably oriented. Speech is coherent. Abstraction fair. Computation impaired. Language function intact. Attention span is short. Mood and affect is improved, less anxious, very verbally interactive with me on telehealth rounds. Laboratory Data: Reviewed. Impression: Major depressive disorder recurrent. Mild cognitive impairment. Anxiety disorder unspecified. Impulse control disorder unspecified. Plan: No change from initial note. Assessment: Vital Signs/I&O: Vital Signs Date Time Temp Pulse Resp B/P (MAP) Pulse Ox O2 Delivery O2 Flow Rate FiO2 01/16/20 06:04 97.7 70 16 128/74 (92) 96 01/11/20 15:01 Room Air I & O 01/15/20 01/15/20 01/16/20 15:00 23:00 07:00 Intake Total 796 ml 545 ml Balance 796 ml 545 ml Current Medications: I have reviewed the current psychotropics carefully including drug interactions. Risk benefit ratio favors no change other than as noted in my dictated progress note. Diagnosis: Problems: (1) Major depressive disorder, recurrent episode (2) Mild cognitive impairment (3) Anxiety disorder, unspecified (4) Impulse control disorder AGNIESZKA COLLADO MD Jan 16, 2020 07:03
--- NOTE | 2020-01-16 07:13 | PDOC ---
Exam Note: Alistair Note: This note is a late entry for 01/15/2020 covers elements not covered in my initial note. Subjective: The patient was reviewed on telehealth rounds in the evening of 01/15/2020 with Wilfredo JEFFERSON. Discussed with nursing staff, reviewed the chart. The patient slept 7-3/4 hours previous night. She has been preoccupied, obsessing about her dentures and hearing aids. She is complaining of neck pain. Received Flexeril and Tylenol at 3 p.m. She did attend groups in the morning, was out on the patio in the evening. Review of Systems: No CV, , pulmonary, eye system symptoms on review. Gait unsteady with walker. Mental Status Exam: Reasonably oriented. She was very pleasant, verbal, inte ractive, less anxious, and very appreciative of her improvement with her mood and anxiety. We processed this with her. Speech is coherent. Abstraction fair. Computation impaired. Language function intact. Attention span is short. Mood and affect is improved, less anxious, Laboratory Data: Reviewed. Impression: Major depressive disorder recurrent. Mild cognitive impairment. Anxiety disorder unspecified. Impulse control disorder unspecified. Plan: No change from initial note. Assessment: Vital Signs/I&O: Vital Signs Date Time Temp Pulse Resp B/P (MAP) Pulse Ox O2 Delivery O2 Flow Rate FiO2 01/16/20 06:04 97.7 70 16 128/74 (92) 96 01/11/20 15:01 Room Air I & O 01/15/20 01/15/20 01/16/20 15:00 23:00 07:00 Intake Total 796 ml 545 ml Balance 796 ml 545 ml Current Medications: I have reviewed the current psychotropics carefully including drug interactions. Risk benefit ratio favors no change other than as noted in my dictated progress note. Diagnosis: Problems: (1) Major depressive disorder, recurrent episode (2) Mild cognitive impairment (3) Anxiety disorder, unspecified (4) Impulse control disorder AGNIESZKA COLLADO MD Jan 16, 2020 07:13
[2020-01-16] MEDS: POLYETHYLENE GLYCOL 3350 17 GM PACKET. PO SCH (08:20)
[2020-01-16] MEDS: lamoTRIgine 100 MG TABLET. PO SCH (08:23)
[2020-01-16] MEDS: CALCIUM CARBONATE 500 MG TABLET PO SCH (08:23)
[2020-01-16] MEDS: ASPIRIN CHEWABLE 81 MG TABLET. PO SCH (08:24)
[2020-01-16] MEDS: MULTIVITAMIN with MINERAL TABLET. PO SCH (08:24)
[2020-01-16] MEDS: SERTRALINE 50 MG TABLET. PO SCH (08:24)
[2020-01-16] MEDS: QUEtiapine 25 MG TABLET. PO SCH ×4 (08:24→19:17)
[2020-01-16] MEDS: DONEPEZIL HCL 10 MG TABLET PO SCH (08:24)
[2020-01-16] MEDS: FAMOTIDINE 20 MG TABLET PO SCH ×2 (08:25→19:17)
[2020-01-16] MEDS: METOPROLOL SUCC 24HR ER 25 MG TAB.ER.24H. PO SCH (08:25)
[2020-01-16] MEDS: DOCUSATE SODIUM 100 MG CAPSULE PO SCH ×2 (08:25→19:17)
[2020-01-16] MEDS: METHYL SALICYLATE/MENTHOL TOPICAL OINTMENT 57GM TUBE. TP PRN (10:43)
--- NOTE | 2020-01-16 10:45 | NUR ---
Nursing note: Pt in her room eating breakfast at AM med pass. She was compliant with meds whole and cooperative with her assessment. Pt continues to complain of pain on the left side of her neck, which is also causing her some anxiety. PRN analgesic balm administered and massaged onto the area. Pt was appreciative and said it did help a little. She is currently in the day room participating in group. Will continue to monitor.
--- NOTE | 2020-01-16 15:30 | NUR ---
Nursing note: Pt c/o L sided neck pain 01/18 and was causing her anxiety. PRN's given per request. Will continue to monitor.
[2020-01-16 15:41] VITALS: BP 166/80
[2020-01-16] MEDS: LIDOCAINE (700MG/PATCH) PATCH. TD SCH (19:17)
[2020-01-16] MEDS: ATORVASTATIN CALCIUM 20 MG TABLET PO SCH (19:17)
--- NOTE | 2020-01-16 20:35 | NUR ---
Nursing Note: Location of Patient during Assessment: Pt withdrawn to her room, lying in bed at shift change. Behaviors Mood and Affect this shift: Pt calm, pleasant, and cooperative. Medication Compliant: Compliant with medications administered whole. Assessment Compliant: Cooperative and compliant with assessment. Pt continues to have c/o L neck pain, Dr. Irizarry aware and new orders received. Lidoderm patch placed on neck this evening as ordered. Pt reports that pain in L neck radiates up into her head and causes dizziness at times. Response After Interventions: Pt currently resting quietly in bed with eyes closed.
--- NOTE | 2020-01-16 22:01 | PDOC ---
Exam Note: Alistair Note: Please also refer to the separate dictated note~for this date of service dictated separately.~Patient seen individually. Discussed the patient with Nursing staff reviewed the chart.~Reviewed interim history and current functioning. Reviewed vital signs,~Labs/ Radiology~and current medications noted below. Continue current treatment with the changes noted in the dictated addendum note Assessment: Vital Signs/I&O: Vital Signs Date Time Temp Pulse Resp B/P (MAP) Pulse Ox O2 Delivery O2 Flow Rate FiO2 01/16/20 21:00 98.2 94 01/16/20 15:41 62 19 166/80 (108) 01/11/20 15:01 Room Air I & O 01/15/20 01/15/20 01/16/20 15:00 23:00 07:00 Intake Total 796 ml 545 ml Balance 796 ml 545 ml Current Medications: Meds: Current Medications Medications (Trade) Dose Ordered Sig/Williams Route PRN Reason Start Time Stop Time Status Last Admin Dose Admin Lidocaine (Lidoderm) 1 patch Q24H TD 01/16/20 19:00 01/16/20 19:17 I have reviewed the current psychotropics carefully including drug interactions. Risk benefit ratio favors no change other than as noted in my dictated progress note. Diagnosis: Problems: (1) Major depressive disorder, recurrent episode (2) Mild cognitive impairment (3) Anxiety disorder, unspecified (4) Impulse control disorder AGNIESZKA COLLADO MD Jan 16, 2020 22:01
[2020-01-17] MEDS: LEVOTHYROXINE 88 MCG TABLET PO SCH (05:11)
[2020-01-17 06:31] VITALS: BP 151/76
[2020-01-17] MEDS: PATCH REMOVAL. MC SCH (07:00)
--- NOTE | 2020-01-17 07:41 | PDOC ---
Exam Note: Alistair Note: This note is a late entry for 01/16/2020 covers elements not covered in my initial note. Subjective: The patient was reviewed on telehealth rounds in the evening of 01/16/2020 with Karen JEFFERSON. Discussed with nursing staff, reviewed the chart. The patient slept 7-3/4 hours previous night. Overall she is doing better. She does have neck pain which worsens her anxiety and we will defer to Dr. Irizarry. Review of Systems: She is hard of hearing. Complains of neck pain. No CV, , pulmonary, eye system symptoms on review. Impaired ambulation with walker. Mental Status Exam: Reasonably oriented. Speech is coherent, has some latency somewhat pressured at times. Abstraction fair. Computation impaired. Language function intact. Attention span is short. Mood and affect is improved. Laboratory Data: Reviewed. Impression: Major depressive disorder recurrent. Mild cognitive impairment. Anxiety disorder unspecified. Impulse control disorder unspecified. Plan: No change from initial note. We will continue to adjust the Seroquel as clinically indicated. Assessment: Vital Signs/I&O: Vital Signs Date Time Temp Pulse Resp B/P (MAP) Pulse Ox O2 Delivery O2 Flow Rate FiO2 01/17/20 06:31 98.0 68 16 151/76 (101) 94 Room Air I & O 01/16/20 01/16/20 01/17/20 15:00 23:00 07:00 Intake Total 560 ml 360 ml Balance 560 ml 360 ml Current Medications: Meds: Current Medications Medications (Trade) Dose Ordered Sig/Williams Route PRN Reason Start Time Stop Time Status Last Admin Dose Admin Lidocaine (Lidoderm) 1 patch Q24H TD 01/16/20 19:00 01/16/20 19:17 I have reviewed the current psychotropics carefully including drug interactions. Risk benefit ratio favors no change other than as noted in my dictated progress note. Diagnosis: Problems: (1) Major depressive disorder, recurrent episode (2) Mild cognitive impairment (3) Anxiety disorder, unspecified (4) Impulse control disorder AGNIESZKA COLLADO MD Jan 17, 2020 07:41
[2020-01-17] MEDS: DONEPEZIL HCL 10 MG TABLET PO SCH (09:06)
[2020-01-17] MEDS: ASPIRIN CHEWABLE 81 MG TABLET. PO SCH (09:06)
[2020-01-17] MEDS: MULTIVITAMIN with MINERAL TABLET. PO SCH (09:06)
[2020-01-17] MEDS: FAMOTIDINE 20 MG TABLET PO SCH ×2 (09:06→20:45)
[2020-01-17] MEDS: lamoTRIgine 100 MG TABLET. PO SCH (09:07)
[2020-01-17] MEDS: QUEtiapine 25 MG TABLET. PO SCH ×4 (09:07→20:45)
[2020-01-17] MEDS: CALCIUM CARBONATE 500 MG TABLET PO SCH (09:07)
[2020-01-17] MEDS: SERTRALINE 50 MG TABLET. PO SCH (09:07)
[2020-01-17] MEDS: DOCUSATE SODIUM 100 MG CAPSULE PO SCH ×2 (09:07→20:45)
[2020-01-17] MEDS: METOPROLOL SUCC 24HR ER 25 MG TAB.ER.24H. PO SCH (09:08)
[2020-01-17] MEDS: POLYETHYLENE GLYCOL 3350 17 GM PACKET. PO SCH (09:08)
[2020-01-17] MEDS: ACETAMINOPHEN 325 MG TABLET PO PRN ×2 (09:10→16:02)
[2020-01-17] MEDS: CYCLOBENZAPRINE 10 MG TABLET. PO PRN ×2 (09:10→16:02)
--- NOTE | 2020-01-17 11:25 | NUR ---
WEEKLY ACTIVITY THERAPY NOTE Date of Admission: 01/05 Date of AT Assessment: 01/06 Precipitating behaviors that initiated intake and admission: SI Goal aimed:increase stress management/relaxation and community resources Initial Goal: Pt will participate in at least three group Activity Therapy sessions per week. Weekly progress towards goal: achieved, 08/11 plus two individual sessions Group participation level: 3 mod, 2 full Weekly highlights: constructing and coloring birdhouse, smiled a couple times this week Behaviors observed: less anxious moments observed than last week, responds well to sitting and focused deep breathing exercises, humorous remarks in groups, chooses to refrain from some upper body/ neck stretches as she knows it irritated her neck, engages in most groups this week Plan: no change to goal Beneficial adaptations: coloring, weighted blanket, deep breathing when anxious
--- NOTE | 2020-01-17 11:47 | RAD ---
EXAM: CT Cervical Spine without IV contrast INDICATION: Reason: fall with severe neck pain / Spl. Instructions: / History: TECHNIQUE: Multi-detector row CT images were obtained through the cervical spine without the use of IV contrast. Post-processing sagittal and coronal reconstructed images were obtained for interpretation. All CT scans performed at this facility utilize dose optimization techniques as appropriate to the exam, including the following: Automated exposure control and adjustment of the mA and/or KV according to patient size (this includes techniques or standardized protocols for targeted exams where dose is indication/reason for exam). COMPARISON: None FINDINGS: CRANIOCERVICAL JUNCTION: Unremarkable. ALIGNMENT: Alignment shows reversal of normal cervical lordosis OSSEOUS: Multilevel cervical degenerative spondylosis. No fracture or aggressive osseous lesions shown. DISC SPACES: Narrowing is most conspicuous at C4-C5 through C6-C7. FACET JOINTS: Facet hypertrophy is present in the upper cervical spine to the greatest extent, bilaterally at C2-C3 through C4-C5. No jumped facets or fractures. SPINAL CANAL: There is mild to moderate bony central canal narrowing at C5-C6 due to disc osteophyte complex and reversal normal cervical lordosis. NEUROFORAMINA: Unremarkable. SOFT TISSUES: Unremarkable. IMPRESSION: No acute traumatic findings in the cervical spine with multilevel degenerative spondylosis noted. Electronically signed by: Gloria Ceja MD (01/17/2020 11:43 AM) [id number]
--- NOTE | 2020-01-17 11:53 | TX PLAN ---
Interdisciplinary Tx Plan Admission Information Jan 06, 2020 at 14:00 Legal Status (on Admission): Voluntary DPOA/Guardian Name: Giuseppe Dinh Contact Verified Code Status: DNR Allergies: Coded Allergies: SULTANA Inhibitors (Verified Allergy, Unknown, 01/01/20) Penicillins (Verified Allergy, Unknown, 01/01/20) phenazopyridine (Verified Allergy, Unknown, 01/01/20) Diagnoses Primary Diagnosis: MDD Reasons for Admission: Aggressive, Depressed, Suicidal ideation Problem in Patient's Words: I have trouble at home and am not dealing with it well. Additional Admission Comments: According to the intake, pt is SI, throughing herself on the floor "to ". Pt is increasingly depressed and hits her head against the bed rails. Aggressive with granddtr. Problems Active Problems: Depression Confusion Inactive Problems: Medication Mgmt Pt Strengths/Limitations Ability for [place]: Poor Cognitive Functioning/Ability: Fair Communication Skills/Ability: Fair Financial Resources: Fair Insight/Judgement: Fair Intellectual Ability: Fair Physical Health: Poor Social Skills: Fair Stability in Family: Fair Stability in School/Work: Poor Verbal Skills: Fair Discharge Criteria Discharge Criteria: No need for close observ., Adequate arrangements @DC, Improved behavior, Improved mood/thought Preliminary Discharge Plan Preliminary DC Plan: Placement Needed, Other Other Arrangements: May need referrals to [facility]/ at discharge Special Precautions Fall Risk: Moderate Initial D/C Plan Undecided at this time; home vs. placement Identified Discharge Needs: Potential referrals needed in the event family decides not to have pt home. Currently Utilized Resources Currently Utilized Resources/P: Primary Care Physician Referrals Community Resources: Mental Health Services potential start up for hospice Identified Problems/Hx/Goals Objectives/Short-Term Goals Short Term Goals: Dec. Aggression, Dec. Symp. Depression, Medication Stabilization, Promote Coping Skill Short Term Goals in Patient's: Figure out my next steps. I want to go home but my family may decide differently. Interventions/Frequency Staff Interventions/Frequency&: Psychiatrist to assess pt at least 3x per week for medication management. contact worker lithography to asses pt at least 2x per week and continually assess discharge needs/ barriers. Nursing to assess behaviors, medications and complete 15 minute checks daily. Encourage participation in group activities (if applicable) or 1:1 engagement based off Activities Dept. 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 Education: Pt reports graduating HS (12th grade) Community Follow-up Primary Care Physician Community Provider/Family Inpu: She is just having more troubles with her grandaughter and she can't care for her anymore. It maybe time to send her to a long-term. 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 Pt is not having any behaviors but does have consistent complaint of neck pain; therefore, pt did have a CT scan of her head to make sure nothing is wrong. Pt does have some anxiety; however, is receptive to deep breathing exercises and appears to do them often. Pt continues to take Lamictal, Aricept, Zoloft and Seroquel. Pt does attend group activites and is very compliant with medications, cares and assessments. Pt can look to discharge next week to [facility] Jan 17, 2020 11:53
[2020-01-17] MEDS: METHYL SALICYLATE/MENTHOL TOPICAL OINTMENT 57GM TUBE. TP PRN (13:12)
--- NOTE | 2020-01-17 13:30 | NUR ---
Nursing note: Resumed pt care. She is in her room at this time quietly coloring pictures. Pt continues to c/o L neck pain. PRN analgesic balm administered. Will continue to monitor.
[2020-01-17 15:21] VITALS: BP 157/77
--- NOTE | 2020-01-17 16:30 | NUR ---
Nursing note: Pt c/o L sided neck pain 10/18 and requested flexeril and tylenol. PRNs administered. Will continue to monitor.
[2020-01-17] MEDS: LIDOCAINE (700MG/PATCH) PATCH. TD SCH (18:38)
[2020-01-17] MEDS: ATORVASTATIN CALCIUM 20 MG TABLET PO SCH (20:45)
--- NOTE | 2020-01-17 21:53 | NUR ---
Pt was pleasant with all interactions during PM shift. When asked how she was doing today pt responded "anxious". Pt. was unable to identify why they were anxious and that it had happened "yesterday or the day before as well". Pt. showed me her favorite picture that she colored of the [facility] that was also haunted. Pt. appears to enjoy having things to work on. Pt was able to prepare self for bed (toileting, oralcare) and laid down after speaking with nurse.
--- NOTE | 2020-01-17 22:00 | PDOC ---
Exam Note: Alistair Note: Please also refer to the separate dictated note~for this date of service dictated separately.~Patient seen individually. Discussed the patient with Nursing staff reviewed the chart.~Reviewed interim history and current functioning. Reviewed vital signs,~Labs/ Radiology~and current medications noted below. Continue current treatment with the changes noted in the dictated addendum note Assessment: Vital Signs/I&O: Vital Signs Date Time Temp Pulse Resp B/P (MAP) Pulse Ox O2 Delivery O2 Flow Rate FiO2 01/17/20 15:21 98.1 71 16 157/77 (103) 99 Room Air I & O 01/16/20 01/16/20 01/17/20 15:00 23:00 07:00 Intake Total 560 ml 360 ml Balance 560 ml 360 ml Current Medications: Meds: Current Medications Medications (Trade) Dose Ordered Sig/Williams Route PRN Reason Start Time Stop Time Status Last Admin Dose Admin Miscellaneous (Lidoderm Patch Removal) 1 ea Q24H MC 01/17/20 07:00 01/17/20 07:00 I have reviewed the current psychotropics carefully including drug interactions. Risk benefit ratio favors no change other than as noted in my dictated progress note. Diagnosis: Problems: (1) Major depressive disorder, recurrent episode (2) Mild cognitive impairment (3) Anxiety disorder, unspecified (4) Impulse control disorder AGNIESZKA COLLADO MD Jan 17, 2020 22:00
--- NOTE | 2020-01-18 01:52 | NUR ---
Last evening pt was eager to hear findings of her CT scan. Discussed with her the degenerative nature of the findings. She said she was hopeful that surgery might be an option but has been told previously by a doctor that she is not a candidate for surgery. Discussed with her conservative measures she can try. She said when she becomes anxious it worsens her neck pain. She has been pleasant and cooperative and had no behaviors tonight.
[2020-01-18] MEDS: LEVOTHYROXINE 88 MCG TABLET PO SCH (05:33)
[2020-01-18 06:24] VITALS: BP 150/83
[2020-01-18] MEDS: CYCLOBENZAPRINE 10 MG TABLET. PO PRN (07:52)
[2020-01-18] MEDS: ACETAMINOPHEN 325 MG TABLET PO PRN (07:53)
[2020-01-18] MEDS: lamoTRIgine 100 MG TABLET. PO SCH (07:54)
[2020-01-18] MEDS: POLYETHYLENE GLYCOL 3350 17 GM PACKET. PO SCH (07:54)
[2020-01-18] MEDS: DOCUSATE SODIUM 100 MG CAPSULE PO SCH ×2 (07:54→20:39)
[2020-01-18] MEDS: SERTRALINE 50 MG TABLET. PO SCH (07:54)
[2020-01-18] MEDS: ASPIRIN CHEWABLE 81 MG TABLET. PO SCH (07:54)
[2020-01-18] MEDS: MULTIVITAMIN with MINERAL TABLET. PO SCH (07:54)
[2020-01-18] MEDS: CALCIUM CARBONATE 500 MG TABLET PO SCH (07:55)
[2020-01-18] MEDS: DONEPEZIL HCL 10 MG TABLET PO SCH (07:56)
[2020-01-18] MEDS: METOPROLOL SUCC 24HR ER 25 MG TAB.ER.24H. PO SCH (07:56)
[2020-01-18] MEDS: QUEtiapine 25 MG TABLET. PO SCH ×4 (07:56→20:40)
[2020-01-18] MEDS: PATCH REMOVAL. MC SCH (07:57)
[2020-01-18] MEDS: FAMOTIDINE 20 MG TABLET PO SCH ×2 (07:57→20:40)
--- NOTE | 2020-01-18 08:00 | NUR ---
Patient reports neck pain. Requests tylenol and flexerill. PRN tylenol and flexerill given for pain per doctors order. Nurse removed patients lidocaine patch and patient wanted another. Nurse explained that its 12 hours on and 12 hours off and that she could have one at 1900. She is quite fixated on her neck pain. Patient had a neck CT on 01/16 which showed degenerative changes.
[2020-01-18 15:32] VITALS: BP 153/86
--- NOTE | 2020-01-18 16:29 | NUR ---
Patient was very anxious and trembling this morning but is calmer this afternoon. Patient takes her medications whole with water and is cooperative and calm. Patient stated she is very concerned that she will be unable to find someone if she needs them. She has asked this nurse twice to "make sure the false teeth and hearing aids are locked in the closet tonight". Nurse provided a replacement hearing aid battery for patients left hearing aid. She attended a movie watching group and has spent time coloring and resting in her room.
[2020-01-18] MEDS: LIDOCAINE (700MG/PATCH) PATCH. TD SCH (18:09)
[2020-01-18] MEDS: ATORVASTATIN CALCIUM 20 MG TABLET PO SCH (20:40)
--- NOTE | 2020-01-18 21:59 | PDOC ---
Exam Note: Alistair Note: Please also refer to the separate dictated note~for this date of service dictated separately.~Patient seen individually. Discussed the patient with Nursing staff reviewed the chart.~Reviewed interim history and current functioning. Reviewed vital signs,~Labs/ Radiology~and current medications noted below. Continue current treatment with the changes noted in the dictated addendum note Assessment: Vital Signs/I&O: Vital Signs Date Time Temp Pulse Resp B/P (MAP) Pulse Ox O2 Delivery O2 Flow Rate FiO2 01/18/20 15:32 98.1 130 18 153/86 (108) 97 01/17/20 15:21 Room Air I & O 01/17/20 01/17/20 01/18/20 15:00 23:00 07:00 Intake Total 320 ml 240 ml Balance 320 ml 240 ml Current Medications: I have reviewed the current psychotropics carefully including drug interactions. Risk benefit ratio favors no change other than as noted in my dictated progress note. Diagnosis: Problems: (1) Major depressive disorder, recurrent episode (2) Mild cognitive impairment (3) Anxiety disorder, unspecified (4) Impulse control disorder AGNIESZKA COLLADO MD Jan 18, 2020 21:59
--- NOTE | 2020-01-18 23:59 | NUR ---
Patient is in her room on assumption of care, awake in bed. She is in pleasant spirits. Compliant with assessments and medications taken whole. Denies any pain, discomfort or anxiety. Patient appears to be sleeping comfortably at present time. Will continue to monitor.
--- NOTE | 2020-01-19 02:07 | NUR ---
Pt was pleasant with interactions during PM shift. After video call with dr. rick, pt was tearful and stated " I don't think my granddaughter or son want me to live with them" and "They havn't talked to me since I have been here". Attempted to reassure pt. that our perceptions do not always reflect reality and we should confirm how other people are feeling prior to worrying based on assumption alone. Pt. stated "my granddaughter said if i didn't change she would put me in a facility and here i am". I explained to the pt. that most likely her granddaughter was frustrated and concerned for her safety and didn't want anything bad to happen to her. Assured pt. that social work and physician would work with her and her family to find the best placement for her after discharge. Pt. appeared satisfied with this answer and while still tearful she did smile. If possible for socialwork/physician to address these concerns with Pt. I believe that would be most helpful.
[2020-01-19 05:00] VITALS: BP 157/74
[2020-01-19] MEDS: LEVOTHYROXINE 88 MCG TABLET PO SCH (05:05)
--- NOTE | 2020-01-19 06:53 | PDOC ---
Exam Note: Alistair Note: This note is a late entry for 01/17/2020 covers elements not covered in my initial note. Subjective: The patient was reviewed on telehealth rounds in the evening of 01/17/2020 with Wilfredo JEFFERSON. Discussed with nursing staff, reviewed the chart. She had CT of the neck due to neck pain and is on Lidoderm patch. We will defer to Dr. Irizarry. [facility]. Review of Systems: She is hard of hearing. Complains of neck pain. No CV, , pulmonary, eye system symptoms on review. Mental Status Exam: Reasonably oriented. Speech is coherent. Abstraction fair. Computation impaired. Language function intact. Mood and affect is improved. Laboratory Data: Reviewed. Impression: Major depressive disorder recurrent. Mild cognitive impairment. Anxiety disorder unspecified. Impulse control disorder unspecified. Plan: No change from initial note. Assessment: Vital Signs/I&O: Vital Signs Date Time Temp Pulse Resp B/P (MAP) Pulse Ox O2 Delivery O2 Flow Rate FiO2 01/19/20 05:00 97.8 71 14 157/74 (101) 97 Room Air I & O 01/18/20 01/18/20 01/19/20 15:00 23:00 07:00 Intake Total 640 ml 360 ml 120 ml Balance 640 ml 360 ml 120 ml Current Medications: I have reviewed the current psychotropics carefully including drug interactions. Risk benefit ratio favors no change other than as noted in my dictated progress note. Diagnosis: Problems: (1) Major depressive disorder, recurrent episode (2) Mild cognitive impairment (3) Anxiety disorder, unspecified (4) Impulse control disorder AGNIESZKA COLLADO MD Jan 19, 2020 06:53
--- NOTE | 2020-01-19 07:04 | PDOC ---
Exam Note: Alistair Note: This note is a late entry for 01/18/2020 covers elements not covered in my initial note. Subjective: The patient was reviewed on telehealth rounds in the evening of 01/18/2020 with Elin JEFFERSON. Discussed with nursing staff, reviewed the chart. The patient slept 6-3/4 hours previous night. She was anxious in the morning, obsessive regarding her dentures and hearing aid. Review of Systems: She is hard of hearing. No CV, , pulmonary, eye system symptoms on review. Impaired ambulation with walker. Mental Status Exam: Reasonably oriented. Speech is coherent. Abstraction fair. Computation impaired. Language function intact. Attention span is short. Mood and affect is less labile, less depressed, less anxious. Laboratory Data: Reviewed. Impression: Major depressive disorder recurrent. Mild cognitive impairment. Anxiety disorder unspecified. Impulse control disorder unspecified. Plan: No change from initial note. Assessment: Vital Signs/I&O: Vital Signs Date Time Temp Pulse Resp B/P (MAP) Pulse Ox O2 Delivery O2 Flow Rate FiO2 01/19/20 05:00 97.8 71 14 157/74 (101) 97 Room Air I & O 01/18/20 01/18/20 01/19/20 15:00 23:00 07:00 Intake Total 640 ml 360 ml 120 ml Balance 640 ml 360 ml 120 ml Current Medications: I have reviewed the current psychotropics carefully including drug interactions. Risk benefit ratio favors no change other than as noted in my dictated progress note. Diagnosis: Problems: (1) Major depressive disorder, recurrent episode (2) Mild cognitive impairment (3) Anxiety disorder, unspecified (4) Impulse control disorder AGNIESZKA COLLADO MD Jan 19, 2020 07:04
[2020-01-19] MEDS: ASPIRIN CHEWABLE 81 MG TABLET. PO SCH (09:27)
[2020-01-19] MEDS: lamoTRIgine 100 MG TABLET. PO SCH (09:27)
[2020-01-19] MEDS: DONEPEZIL HCL 10 MG TABLET PO SCH (09:27)
[2020-01-19] MEDS: DOCUSATE SODIUM 100 MG CAPSULE PO SCH ×2 (09:27→20:27)
[2020-01-19] MEDS: PATCH REMOVAL. MC SCH (09:27)
[2020-01-19] MEDS: QUEtiapine 25 MG TABLET. PO SCH ×3 (09:28→20:28)
[2020-01-19] MEDS: SERTRALINE 50 MG TABLET. PO SCH (09:28)
[2020-01-19] MEDS: MULTIVITAMIN with MINERAL TABLET. PO SCH (09:28)
[2020-01-19] MEDS: FAMOTIDINE 20 MG TABLET PO SCH ×2 (09:28→20:28)
[2020-01-19] MEDS: POLYETHYLENE GLYCOL 3350 17 GM PACKET. PO SCH (09:28)
[2020-01-19] MEDS: METOPROLOL SUCC 24HR ER 25 MG TAB.ER.24H. PO SCH (09:28)
[2020-01-19] MEDS: CALCIUM CARBONATE 500 MG TABLET PO SCH (09:28)
[2020-01-19] MEDS: CYCLOBENZAPRINE 10 MG TABLET. PO PRN ×2 (09:31→20:29)
[2020-01-19] MEDS: ACETAMINOPHEN 325 MG TABLET PO PRN (09:31)
[2020-01-19 11:07] LABS: BASO % 1 % (0-3); EOS # 0.1 x10^3/uL (0.0-0.7); EOS % 2 % (0-3); HEMATOCRIT 33.7 % (36.0-47.0); LYMPH # 0.8 x10^3/uL (1.0-4.8); LYMPH % 14 % (24-48); MEAN CORPUSCULAR HEMOGLOBIN 31 pg (25-35); MEAN CORPUSCULAR HGB CONC 33 g/dL (31-37); MEAN CORPUSCULAR VOLUME 95 fL (79-100); MONO # 0.4 x10^3/uL (0.0-1.1); MONO % 7 % (0-9); NEUT # 4.2 x10^3uL (1.8-7.7); NEUT % 76 % (31-73); PLATELET COUNT 183 x10^3/uL (140-400); RED BLOOD COUNT 3.56 x10^6/uL (3.50-5.40); RED CELL DISTRIBUTION WIDTH 13.3 % (11.5-14.5); WHITE BLOOD COUNT 5.6 x10^3/uL (4.0-11.0)
[2020-01-19 11:15] LABS: ALBUMIN 3.6 g/dL (3.4-5.0); CREATININE 1.2 mg/dL (0.6-1.0); GFR 42.7; POTASSIUM 4.6 mmol/L (3.5-5.1); TOTAL BILIRUBIN 0.2 mg/dL (0.2-1.0); TOTAL PROTEIN 7.1 g/dL (6.4-8.2)
--- NOTE | 2020-01-19 12:13 | NUR ---
Pt is anxious, cooperative, and compliant. No agitation, no aggression, no hallucinations or delusions. She is compliant with her medication and assessment. When pt is anxious she is difficult to redirect. PRN medication, staff assistance, or reassurance does not seem to help or is of minimal help to the pt.
[2020-01-19 15:00] VITALS: BP 150/82
[2020-01-19] MEDS ORDERED: QUEtiapine 25 MG TABLET. PO SCH (17:00)
[2020-01-19] MEDS: LIDOCAINE (700MG/PATCH) PATCH. TD SCH (20:26)
[2020-01-19] MEDS: ATORVASTATIN CALCIUM 20 MG TABLET PO SCH (20:27)
--- NOTE | 2020-01-19 21:00 | NUR ---
Patient is in her room on assumption of care, awake in bed. She is in pleasant spirits. Compliant with assessments and medications taken whole. Denies any pain, discomfort or anxiety. Patient did request to have PRN Flexeril, which she received with her HS meds. Patient appears to be sleeping comfortably at present time. Will continue to monitor.
--- NOTE | 2020-01-19 21:44 | NUR ---
Pt. appeared very anxious on initial interaction (quivering lip, quick shallow respirations, stammered speech). Pt. stated "I need help with my hearing aids and dentures, the girl with the pony tail said she would be back". Told pt. day shift had left but I would be happy to help her as soon as i finished current task. Instructed pt. to take slow deep breaths, that we would figure it out, that I was here for 12 hours and would be sure to get her teeth and hearing aids taken care of. Pt requested paper towels and I provided pt. with hand towel. Later on after delivering PM snack to pt. (diandra icecream) pt stated "I talked to my son today, I asked him what they were going to do with me. He said they were working on it. That I would come home and they were looking at assistive living facilities for me. What is that?" I explained to pt. that assistive living was like an apartment with no maintenance and that a nurse would check on her periodically to make sure that she was ok but it was a much more independent living environment than a [place] [facility] or this hospital. I told pt. that they were a really good option and that my grandmother had been looking at them as well. Informed pt. that lots of them have activities for the residents to get together such as bingo, pt. was very excited to hear this and stated "I love bingo". Pt. smiled and appeared to be in much better spirits. Pt. ambulated to bathroom of own accord as necessary and used walker appropriately.
--- NOTE | 2020-01-19 22:08 | PDOC ---
Exam Note: Alistair Note: Please also refer to the separate dictated note~for this date of service dictated separately.~Patient seen individually. Discussed the patient with Nursing staff reviewed the chart.~Reviewed interim history and current functioning. Reviewed vital signs,~Labs/ Radiology~and current medications noted below. Continue current treatment with the changes noted in the dictated addendum note Assessment: Vital Signs/I&O: Vital Signs Date Time Temp Pulse Resp B/P (MAP) Pulse Ox O2 Delivery O2 Flow Rate FiO2 01/19/20 15:00 97.9 78 20 150/82 (104) 97 Room Air I & O 01/18/20 01/18/20 01/19/20 15:00 23:00 07:00 Intake Total 640 ml 360 ml 120 ml Balance 640 ml 360 ml 120 ml Labs: Laboratory Tests Test 01/19/20 10:34 White Blood Count 5.6 x10^3/uL (4.0-11.0) Red Blood Count 3.56 x10^6/uL (3.50-5.40) Hemoglobin 11.0 g/dL (12.0-15.5) L Hematocrit 33.7 % (36.0-47.0) L Mean Corpuscular Volume 95 fL (79-100) Mean Corpuscular Hemoglobin 31 pg (25-35) Mean Corpuscular Hemoglobin Concent 33 g/dL (31-37) Red Cell Distribution Width 13.3 % (11.5-14.5) Platelet Count 183 x10^3/uL (140-400) Neutrophils (%) (Auto) 76 % (31-73) H Lymphocytes (%) (Auto) 14 % (24-48) L Monocytes (%) (Auto) 7 % (0-9) Eosinophils (%) (Auto) 2 % (0-3) Basophils (%) (Auto) 1 % (0-3) Neutrophils # (Auto) 4.2 x10^3uL (1.8-7.7) Lymphocytes # (Auto) 0.8 x10^3/uL (1.0-4.8) L Monocytes # (Auto) 0.4 x10^3/uL (0.0-1.1) Eosinophils # (Auto) 0.1 x10^3/uL (0.0-0.7) Basophils # (Auto) 0.0 x10^3/uL (0.0-0.2) Sodium Level 135 mmol/L (136-145) L Potassium Level 4.6 mmol/L (3.5-5.1) Chloride Level 100 mmol/L (98-107) Carbon Dioxide Level 26 mmol/L (21-32) Anion Gap 9 (6-14) Blood Urea Nitrogen 35 mg/dL (7-20) H Creatinine 1.2 mg/dL (0.6-1.0) H Estimated GFR (Cockcroft-Gault) 42.7 BUN/Creatinine Ratio 29 (6-20) H Glucose Level 75 mg/dL (70-99) Calcium Level 9.0 mg/dL (8.5-10.1) Total Bilirubin 0.2 mg/dL (0.2-1.0) Aspartate Amino Transferase (AST) 23 U/L (15-37) Alanine Aminotransferase (ALT) 26 U/L (14-59) Alkaline Phosphatase 60 U/L (46-116) Total Protein 7.1 g/dL (6.4-8.2) Albumin 3.6 g/dL (3.4-5.0) Albumin/Globulin Ratio 1.0 (1.0-1.7) Current Medications: Meds: Current Medications Medications (Trade) Dose Ordered Sig/Williams Route PRN Reason Start Time Stop Time Status Last Admin Dose Admin Quetiapine Fumarate (SEROquel) 25 mg TID PO 01/19/20 21:00 01/19/20 20:28 Quetiapine Fumarate (SEROquel) 37.5 mg 1700 PO 01/19/20 17:00 01/19/20 17:14 I have reviewed the current psychotropics carefully including drug interactions. Risk benefit ratio favors no change other than as noted in my dictated progress note. Diagnosis: Problems: (1) Major depressive disorder, recurrent episode (2) Mild cognitive impairment (3) Anxiety disorder, unspecified (4) Impulse control disorder AGNIESZKA COLLADO MD Jan 19, 2020 22:08
--- NOTE | 2020-01-19 23:22 | PDOC ---
Exam Note: Alistair Note: This note for 01/19/2020 covers elements not covered in my initial note. Subjective: The patient was reviewed on telehealth rounds in the evening of 01/19/2020 with Kiah JEFFERSON. Discussed with nursing staff, reviewed the chart. She has been somewhat anxious, complains of neck pain. Sodium 135, obsessive, wanting a pain patch. Review of Systems: Positive for neck pain. No CV, , pulmonary, eye system symptoms on review. Gait unsteady with walker. Mental Status Exam: Reasonably oriented. Speech is coherent, rapid at times. Abstraction fair. Computation impaired. Language function intact. Mood and affect still anxious, depressed, better than before. Laboratory Data: Reviewed. Impression: Major depressive disorder recurrent. Mild cognitive impairment. Anxiety disorder unspecified. Impulse control disorder unspecified. Plan: No change from initial note. We addressed her placement options and she has talked to her son today and is willing to go to an assisted living. I processed this with her. She states she will have a roommate at the assisted living but has not visited there. Would like to do before she finally moves there. Currently she is on Seroquel 25 mg q.i.d. We will increase the 5 p.m. dosage to 37.5 mg. Rest unchanged. Assessment: Vital Signs/I&O: Vital Signs Date Time Temp Pulse Resp B/P (MAP) Pulse Ox O2 Delivery O2 Flow Rate FiO2 01/19/20 15:00 97.9 78 20 150/82 (104) 97 Room Air I & O 01/18/20 01/18/20 01/19/20 15:00 23:00 07:00 Intake Total 640 ml 360 ml 120 ml Balance 640 ml 360 ml 120 ml Labs: Laboratory Tests Test 01/19/20 10:34 White Blood Count 5.6 x10^3/uL (4.0-11.0) Red Blood Count 3.56 x10^6/uL (3.50-5.40) Hemoglobin 11.0 g/dL (12.0-15.5) L Hematocrit 33.7 % (36.0-47.0) L Mean Corpuscular Volume 95 fL (79-100) Mean Corpuscular Hemoglobin 31 pg (25-35) Mean Corpuscular Hemoglobin Concent 33 g/dL (31-37) Red Cell Distribution Width 13.3 % (11.5-14.5) Platelet Count 183 x10^3/uL (140-400) Neutrophils (%) (Auto) 76 % (31-73) H Lymphocytes (%) (Auto) 14 % (24-48) L Monocytes (%) (Auto) 7 % (0-9) Eosinophils (%) (Auto) 2 % (0-3) Basophils (%) (Auto) 1 % (0-3) Neutrophils # (Auto) 4.2 x10^3uL (1.8-7.7) Lymphocytes # (Auto) 0.8 x10^3/uL (1.0-4.8) L Monocytes # (Auto) 0.4 x10^3/uL (0.0-1.1) Eosinophils # (Auto) 0.1 x10^3/uL (0.0-0.7) Basophils # (Auto) 0.0 x10^3/uL (0.0-0.2) Sodium Level 135 mmol/L (136-145) L Potassium Level 4.6 mmol/L (3.5-5.1) Chloride Level 100 mmol/L (98-107) Carbon Dioxide Level 26 mmol/L (21-32) Anion Gap 9 (6-14) Blood Urea Nitrogen 35 mg/dL (7-20) H Creatinine 1.2 mg/dL (0.6-1.0) H Estimated GFR (Cockcroft-Gault) 42.7 BUN/Creatinine Ratio 29 (6-20) H Glucose Level 75 mg/dL (70-99) Calcium Level 9.0 mg/dL (8.5-10.1) Total Bilirubin 0.2 mg/dL (0.2-1.0) Aspartate Amino Transferase (AST) 23 U/L (15-37) Alanine Aminotransferase (ALT) 26 U/L (14-59) Alkaline Phosphatase 60 U/L (46-116) Total Protein 7.1 g/dL (6.4-8.2) Albumin 3.6 g/dL (3.4-5.0) Albumin/Globulin Ratio 1.0 (1.0-1.7) Current Medications: Meds: Current Medications Medications (Trade) Dose Ordered Sig/Williams Route PRN Reason Start Time Stop Time Status Last Admin Dose Admin Quetiapine Fumarate (SEROquel) 25 mg TID PO 01/19/20 21:00 01/19/20 20:28 Quetiapine Fumarate (SEROquel) 37.5 mg 1700 PO 01/19/20 17:00 01/19/20 17:14 I have reviewed the current psychotropics carefully including drug interactions. Risk benefit ratio favors no change other than as noted in my dictated progress note. Diagnosis: Problems: (1) Major depressive disorder, recurrent episode (2) Mild cognitive impairment (3) Anxiety disorder, unspecified (4) Impulse control disorder AGNIESZKA COLLADO MD Jan 19, 2020 23:22
[2020-01-20 05:00] VITALS: BP 156/88
[2020-01-20] MEDS: LEVOTHYROXINE 88 MCG TABLET PO SCH (05:39)
[2020-01-20] MEDS: PATCH REMOVAL. MC SCH (07:00)
[2020-01-20] MEDS: CYCLOBENZAPRINE 10 MG TABLET. PO PRN ×2 (07:09→21:03)
[2020-01-20] MEDS: ACETAMINOPHEN 325 MG TABLET PO PRN (07:10)
[2020-01-20] MEDS: POLYETHYLENE GLYCOL 3350 17 GM PACKET. PO SCH (09:27)
[2020-01-20] MEDS: DOCUSATE SODIUM 100 MG CAPSULE PO SCH ×2 (09:28→21:02)
[2020-01-20] MEDS: FAMOTIDINE 20 MG TABLET PO SCH ×2 (09:28→21:03)
[2020-01-20] MEDS: DONEPEZIL HCL 10 MG TABLET PO SCH (09:28)
[2020-01-20] MEDS: ASPIRIN CHEWABLE 81 MG TABLET. PO SCH (09:28)
[2020-01-20] MEDS: CALCIUM CARBONATE 500 MG TABLET PO SCH (09:28)
[2020-01-20] MEDS: lamoTRIgine 100 MG TABLET. PO SCH (09:28)
[2020-01-20] MEDS: QUEtiapine 25 MG TABLET. PO SCH ×4 (09:28→21:03)
[2020-01-20] MEDS: MULTIVITAMIN with MINERAL TABLET. PO SCH (09:28)
[2020-01-20] MEDS: METOPROLOL SUCC 24HR ER 25 MG TAB.ER.24H. PO SCH (09:29)
[2020-01-20] MEDS: SERTRALINE 50 MG TABLET. PO SCH (09:29)
[2020-01-20] MEDS: METHYL SALICYLATE/MENTHOL TOPICAL OINTMENT 57GM TUBE. TP PRN ×2 (09:32→16:51)
--- NOTE | 2020-01-20 11:14 | NUR ---
Pt is anxious, cooperative, and compliant. No agitation, no aggression, no hallucinations or delusions. She is compliant with her medication and assessment. When pt is anxious she is difficult to redirect. PRN medication, staff assistance, or reassurance does not seem to help or is of minimal help to the pt. At times coloring can redirect and calm her anxiety.
[2020-01-20 15:00] VITALS: BP 131/77
[2020-01-20] MEDS: ATORVASTATIN CALCIUM 20 MG TABLET PO SCH (21:02)
[2020-01-20] MEDS: LIDOCAINE (700MG/PATCH) PATCH. TD SCH (21:02)
--- NOTE | 2020-01-20 22:12 | PDOC ---
Exam Note: Alistair Note: Please also refer to the separate dictated note~for this date of service dictated separately.~Patient seen individually. Discussed the patient with Nursing staff reviewed the chart.~Reviewed interim history and current functioning. Reviewed vital signs,~Labs/ Radiology~and current medications noted below. Continue current treatment with the changes noted in the dictated addendum note Assessment: Vital Signs/I&O: Vital Signs Date Time Temp Pulse Resp B/P (MAP) Pulse Ox O2 Delivery O2 Flow Rate FiO2 01/20/20 15:00 98.3 77 16 131/77 (95) 97 Room Air I & O 01/19/20 01/19/20 01/20/20 15:00 23:00 07:00 Intake Total 600 ml 360 ml Balance 600 ml 360 ml Current Medications: Meds: Current Medications Medications (Trade) Dose Ordered Sig/Williams Route PRN Reason Start Time Stop Time Status Last Admin Dose Admin Quetiapine Fumarate (SEROquel) 37.5 mg 0900,1700 PO 01/20/20 17:00 01/20/20 16:51 Quetiapine Fumarate (SEROquel) 25 mg 1400,2100 PO 01/20/20 21:00 01/20/20 21:03 I have reviewed the current psychotropics carefully including drug interactions. Risk benefit ratio favors no change other than as noted in my dictated progress note. Diagnosis: Problems: (1) Major depressive disorder, recurrent episode (2) Mild cognitive impairment (3) Anxiety disorder, unspecified (4) Impulse control disorder AGNIESZKA COLLADO MD Jan 20, 2020 22:12
--- NOTE | 2020-01-20 23:00 | NUR ---
Patient is in her room on assumption of care, awake in bed. She is anxious about her neck pain. Asked "How am I supposed to live in an assisted living facility with this pain?" This nurse reassured her that her neck pain and anxiety are something we are working on alleviating for her before she leaves the unit. Compliant with assessments and medications taken whole. Patient did request to have PRN Flexeril, which she received with her HS meds. Patient appears to be sleeping comfortably at present time. Will continue to monitor.
[2020-01-21] MEDS: CYCLOBENZAPRINE 10 MG TABLET. PO PRN ×2 (05:16→19:35)
[2020-01-21] MEDS: ACETAMINOPHEN 325 MG TABLET PO PRN ×2 (05:16→19:35)
[2020-01-21] MEDS: LEVOTHYROXINE 88 MCG TABLET PO SCH (05:16)
[2020-01-21 06:00] VITALS: BP 166/78
[2020-01-21] MEDS: POLYETHYLENE GLYCOL 3350 17 GM PACKET. PO SCH (09:31)
[2020-01-21] MEDS: PATCH REMOVAL. MC SCH (09:32)
[2020-01-21] MEDS: FAMOTIDINE 20 MG TABLET PO SCH ×2 (09:33→19:34)
[2020-01-21] MEDS: DOCUSATE SODIUM 100 MG CAPSULE PO SCH ×2 (09:33→19:34)
[2020-01-21] MEDS: DONEPEZIL HCL 10 MG TABLET PO SCH (09:33)
[2020-01-21] MEDS: lamoTRIgine 100 MG TABLET. PO SCH (09:33)
[2020-01-21] MEDS: CALCIUM CARBONATE 500 MG TABLET PO SCH (09:33)
[2020-01-21] MEDS: ASPIRIN CHEWABLE 81 MG TABLET. PO SCH (09:33)
[2020-01-21] MEDS: MULTIVITAMIN with MINERAL TABLET. PO SCH (09:34)
[2020-01-21] MEDS: QUEtiapine 25 MG TABLET. PO SCH ×4 (09:34→19:37)
[2020-01-21] MEDS: METOPROLOL SUCC 24HR ER 25 MG TAB.ER.24H. PO SCH (09:34)
[2020-01-21] MEDS: SERTRALINE 50 MG TABLET. PO SCH (09:35)
--- NOTE | 2020-01-21 14:29 | NUR ---
Pt was highly anxious this am, pacing, delusional-she stated her bed was vibrating and she demanded to talk to upper management about it. Multiple staff members attempted to reassure pt her bed was not vibrating. Pt could not be reassured or consoled. Pt was inconsolable, hyperventilating, and sobbing. When staff would encourage coping technique such as deep breathing or validating her feelings she would state "thats easy for you to say." PRN zyprexa zydis given with am medication.
[2020-01-21 15:53] VITALS: BP 129/78
[2020-01-21] MEDS: ATORVASTATIN CALCIUM 20 MG TABLET PO SCH (19:35)
[2020-01-21] MEDS: LIDOCAINE (700MG/PATCH) PATCH. TD SCH (19:35)
[2020-01-21] MEDS: traZODone 50 MG TABLET. PO PRN (19:37)
[2020-01-21] MEDS: METHYL SALICYLATE/MENTHOL TOPICAL OINTMENT 57GM TUBE. TP SCH (19:38)
--- NOTE | 2020-01-21 22:00 | PDOC ---
Exam Note: Alistair Note: Please also refer to the separate dictated note~for this date of service dictated separately.~Patient seen individually. Discussed the patient with Nursing staff reviewed the chart.~Reviewed interim history and current functioning. Reviewed vital signs,~Labs/ Radiology~and current medications noted below. Continue current treatment with the changes noted in the dictated addendum note Assessment: Vital Signs/I&O: Vital Signs Date Time Temp Pulse Resp B/P (MAP) Pulse Ox O2 Delivery O2 Flow Rate FiO2 01/21/20 15:53 98.2 130 19 129/78 (95) 98 01/21/20 06:00 Room Air I & O 01/20/20 01/20/20 01/21/20 15:00 23:00 07:00 Intake Total 600 ml 480 ml Balance 600 ml 480 ml Current Medications: Meds: Current Medications Medications (Trade) Dose Ordered Sig/Williams Route PRN Reason Start Time Stop Time Status Last Admin Dose Admin Multi-Ingredient Ointment (Analgesic [place]) 1 clarke TID TP 01/21/20 21:00 01/21/20 19:38 Quetiapine Fumarate (SEROquel) 37.5 mg QID PO 01/21/20 21:00 01/21/20 19:37 I have reviewed the current psychotropics carefully including drug interactions. Risk benefit ratio favors no change other than as noted in my dictated progress note. Diagnosis: Problems: (1) Major depressive disorder, recurrent episode (2) Mild cognitive impairment (3) Anxiety disorder, unspecified (4) Impulse control disorder AGNIESZKA COLLADO MD Jan 21, 2020 22:00
--- NOTE | 2020-01-21 22:25 | NUR ---
PT IS LOCATED IN ROOM AT TIME OFF ASSESSMENT AND MEDICATION ADMINISTRATION. PATIENT IS PLEASANT AND COOPERATIVE WITH MEDICATION WHOLE WITH WATER. PATIENT IS LESS ANXIOUS THIS EVENING AND COMPLIANT WITH SHOWER. PT IS RESTIN IN BED AT THIS TIME. WILL CONTINUE TO MONITOR.
[2020-01-22 06:30] VITALS: BP 135/85
--- NOTE | 2020-01-22 06:34 | PDOC ---
Exam Note: Alistair Note: This note is a late entry for 01/20/2020 covers elements not covered in my initial note. Subjective: The patient was reviewed on telehealth rounds in the evening of 01/20/2020 with Kiah JEFFERSON. Discussed with nursing staff, reviewed the chart. She slept 8 hours previous night. She has been very overwhelmed with the pain in her neck. She did a neck rub by the nursing staff with Iris and felt much better. Received Flexeril and Tylenol but says these do not help her. Review of Systems: Positive for neck pain. Impaired ambulation with walker. No CV, , pulmonary, eye system symptoms on review. Mental Status Exam: Reasonably oriented. The patient is quite verbal, interactive, fixated on the pain, some of it is understandable. Attention span is short. No suicidal or homicidal ideation. Mood lability is improved. Laboratory Data: Reviewed. Impression: Major depressive disorder recurrent. Mild cognitive impairment. Anxiety disorder unspecified. Impulse control disorder unspecified. Plan: No change from initial note. We will increase the 9 a.m. Seroquel to 37.5 mg. She already gets 37.5 mg at 5 p.m. and then 25 mg twice a day. Continue rest of the psychotropics unchanged. Make further adjustments as clinically indicated. Assessment: Vital Signs/I&O: Vital Signs Date Time Temp Pulse Resp B/P (MAP) Pulse Ox O2 Delivery O2 Flow Rate FiO2 01/22/20 06:30 97.8 78 20 135/85 (102) 94 Room Air I & O 01/21/20 01/21/20 01/22/20 15:00 23:00 07:00 Intake Total 840 ml 420 ml Balance 840 ml 420 ml Current Medications: Meds: Current Medications Medications (Trade) Dose Ordered Sig/Williams Route PRN Reason Start Time Stop Time Status Last Admin Dose Admin Multi-Ingredient Ointment (Analgesic [place]) 1 clakre TID TP 01/21/20 21:00 01/21/20 19:38 Quetiapine Fumarate (SEROquel) 37.5 mg QID PO 01/21/20 21:00 01/21/20 19:37 I have reviewed the current psychotropics carefully including drug interactions. Risk benefit ratio favors no change other than as noted in my dictated progress note. Diagnosis: Problems: (1) Major depressive disorder, recurrent episode (2) Mild cognitive impairment (3) Anxiety disorder, unspecified (4) Impulse control disorder AGNIESZKA COLLADO MD Jan 22, 2020 06:34
[2020-01-22] MEDS: LEVOTHYROXINE 88 MCG TABLET PO SCH (06:41)
--- NOTE | 2020-01-22 06:48 | PDOC ---
Exam Note: Alistair Note: This note is a late entry for 01/21/2020 covers elements not covered in my initial note. Subjective: The patient was reviewed on telehealth rounds in the evening of 01/21/2020 with Kiah JEFFERSON. Discussed with nursing staff, reviewed the chart. This morning the patient had a very difficult time. She is paranoid, suspicious, believed her bed was vibrating. People were doing this to her purposely. Sodium is dropped from 140 to 135. She has been hyperverbal and anxious. Review of Systems: She is hard of hearing. Impaired ambulation with walker. No CV, , pulmonary, eye system symptoms on review. Mental Status Exam: Reasonably oriented. Speech is coherent, rapid at times. Abstraction fair. Computation impaired. Language function intact. Mood and affect remains somewhat anxious, ;labile but better this evening than in the morning. Laboratory Data: Reviewed. Impression: Major depressive disorder recurrent. Mild cognitive impairment. Anxiety disorder unspecified. Impulse control disorder unspecified. Plan: Sodium dropped from 140 to 135. We may stop the Zoloft as the SSRIs could be contributing partly to this. Continue rest of the psychotropics unchanged. We may need to increase Seroquel depending on her progress. Assessment: Vital Signs/I&O: Vital Signs Date Time Temp Pulse Resp B/P (MAP) Pulse Ox O2 Delivery O2 Flow Rate FiO2 01/22/20 06:30 97.8 78 20 135/85 (102) 94 Room Air I & O 01/21/20 01/21/20 01/22/20 15:00 23:00 07:00 Intake Total 840 ml 420 ml Balance 840 ml 420 ml Current Medications: Meds: Current Medications Medications (Trade) Dose Ordered Sig/Williams Route PRN Reason Start Time Stop Time Status Last Admin Dose Admin Multi-Ingredient Ointment (Analgesic [place]) 1 clarke TID TP 01/21/20 21:00 01/21/20 19:38 Quetiapine Fumarate (SEROquel) 37.5 mg QID PO 01/21/20 21:00 01/21/20 19:37 I have reviewed the current psychotropics carefully including drug interactions. Risk benefit ratio favors no change other than as noted in my dictated progress note. Diagnosis: Problems: (1) Major depressive disorder, recurrent episode (2) Mild cognitive impairment (3) Anxiety disorder, unspecified (4) Impulse control disorder HEAVEN,MAN M MD Jan 22, 2020 06:48
[2020-01-22] MEDS: PATCH REMOVAL. MC SCH (07:00)
[2020-01-22] MEDS: POLYETHYLENE GLYCOL 3350 17 GM PACKET. PO SCH (08:21)
[2020-01-22] MEDS: METHYL SALICYLATE/MENTHOL TOPICAL OINTMENT 57GM TUBE. TP SCH ×3 (08:21→19:49)
[2020-01-22] MEDS: FAMOTIDINE 20 MG TABLET PO SCH ×2 (08:23→19:47)
[2020-01-22] MEDS: ASPIRIN CHEWABLE 81 MG TABLET. PO SCH (08:23)
[2020-01-22] MEDS: METOPROLOL SUCC 24HR ER 25 MG TAB.ER.24H. PO SCH (08:24)
[2020-01-22] MEDS: DONEPEZIL HCL 10 MG TABLET PO SCH (08:24)
[2020-01-22] MEDS: CALCIUM CARBONATE 500 MG TABLET PO SCH (08:24)
[2020-01-22] MEDS: lamoTRIgine 100 MG TABLET. PO SCH (08:24)
[2020-01-22] MEDS: MULTIVITAMIN with MINERAL TABLET. PO SCH (08:24)
[2020-01-22] MEDS: DOCUSATE SODIUM 100 MG CAPSULE PO SCH ×2 (08:24→19:47)
[2020-01-22] MEDS: QUEtiapine 25 MG TABLET. PO SCH ×4 (08:25→19:47)
[2020-01-22] MEDS: ACETAMINOPHEN 325 MG TABLET PO PRN ×2 (08:26→16:45)
[2020-01-22] MEDS: CYCLOBENZAPRINE 10 MG TABLET. PO PRN ×2 (08:26→16:45)
--- NOTE | 2020-01-22 11:55 | NUR ---
Nursing note: Pt has anxiously come out of her room on multiple occasions this shift breathing heavily stating she needs help. When asked about what she needs help with, she mentions getting dressed, needing more water, etc. Pt c/o 12/19 neck pain. PRN's administered with AM meds. Pt has been very anxious this morning and complains of her bed and the figueroa vibrating. Pt is very difficult to redirect. She is now sitting in her room coloring. Will continue to monitor.
--- NOTE | 2020-01-22 14:17 | NUR ---
SW left a message for pt son to contact SW when possible to discuss pt discharge plans.
--- NOTE | 2020-01-22 14:27 | NUR ---
REGLA received a returned call from pt son, who discussed with SW where they were in the process of discharge. Pt son reports that they are choosing [facility]; however, they are also attempting to work out her LTC policy. He was told that LTC would not go into effect for 90 days. So for her to be at [facility] at this time, it would be $20,000 for 3 months and the LTC policy would be in effect. SW mentioned having pt discharge on Tuesday in the event that pt would be going home. Pt son will reach out to the facility to check options and let SW know if pt will be coming home Tuesday vs [facility].
[2020-01-22 16:17] VITALS: BP 127/82
[2020-01-22] MEDS: LIDOCAINE (700MG/PATCH) PATCH. TD SCH (18:40)
[2020-01-22] MEDS: ATORVASTATIN CALCIUM 20 MG TABLET PO SCH (19:47)
--- NOTE | 2020-01-22 21:52 | PDOC ---
Exam Note: Alistair Note: Please also refer to the separate dictated note~for this date of service dictated separately.~Patient seen individually. Discussed the patient with Nursing staff reviewed the chart.~Reviewed interim history and current functioning. Reviewed vital signs,~Labs/ Radiology~and current medications noted below. Continue current treatment with the changes noted in the dictated addendum note Assessment: Vital Signs/I&O: Vital Signs Date Time Temp Pulse Resp B/P (MAP) Pulse Ox O2 Delivery O2 Flow Rate FiO2 01/22/20 16:17 97.9 131 16 127/82 (97) 99 01/22/20 06:30 Room Air I & O 01/21/20 01/21/20 01/22/20 15:00 23:00 07:00 Intake Total 840 ml 420 ml Balance 840 ml 420 ml Current Medications: Meds: Current Medications Medications (Trade) Dose Ordered Sig/Williams Route PRN Reason Start Time Stop Time Status Last Admin Dose Admin Quetiapine Fumarate (SEROquel) 37.5 mg 1300,2100 PO 01/22/20 21:00 01/22/20 19:47 I have reviewed the current psychotropics carefully including drug interactions. Risk benefit ratio favors no change other than as noted in my dictated progress note. Diagnosis: Problems: (1) Major depressive disorder, recurrent episode (2) Mild cognitive impairment (3) Anxiety disorder, unspecified (4) Impulse control disorder AGNIESZKA COLLADO MD Jan 22, 2020 21:52
--- NOTE | 2020-01-23 05:13 | NUR ---
Nursing Note The patient was located in her room for her assessment and medication pass. The patient took her medication whole and was pleasant during interactions with this nurse. The patient is currently sleeping in her room.
[2020-01-23] MEDS: LEVOTHYROXINE 88 MCG TABLET PO SCH (05:36)
[2020-01-23 06:18] VITALS: BP 126/76
[2020-01-23] MEDS: PATCH REMOVAL. MC SCH (07:00)
[2020-01-23] MEDS: FAMOTIDINE 20 MG TABLET PO SCH ×2 (07:59→20:48)
[2020-01-23] MEDS: CALCIUM CARBONATE 500 MG TABLET PO SCH (07:59)
[2020-01-23] MEDS: DONEPEZIL HCL 10 MG TABLET PO SCH (07:59)
[2020-01-23] MEDS: POLYETHYLENE GLYCOL 3350 17 GM PACKET. PO SCH (07:59)
[2020-01-23] MEDS: DOCUSATE SODIUM 100 MG CAPSULE PO SCH ×2 (08:00→20:49)
[2020-01-23] MEDS: ACETAMINOPHEN 325 MG TABLET PO PRN (08:00)
[2020-01-23] MEDS: lamoTRIgine 100 MG TABLET. PO SCH (08:00)
[2020-01-23] MEDS: CYCLOBENZAPRINE 10 MG TABLET. PO PRN (08:00)
[2020-01-23] MEDS: ASPIRIN CHEWABLE 81 MG TABLET. PO SCH (08:01)
[2020-01-23] MEDS: QUEtiapine 50 MG TABLET. PO SCH ×2 (08:02→17:36)
[2020-01-23] MEDS: METHYL SALICYLATE/MENTHOL TOPICAL OINTMENT 57GM TUBE. TP SCH ×3 (08:12→20:49)
[2020-01-23] MEDS: METOPROLOL SUCC 24HR ER 25 MG TAB.ER.24H. PO SCH (08:13)
[2020-01-23] MEDS: MULTIVITAMIN with MINERAL TABLET. PO SCH (08:13)
--- NOTE | 2020-01-23 08:18 | NUR ---
Patient stated that her neck and shoulders are painful. She requests PRN flexoril and tylenol. PRNs provided per order with morning medications. Scheduled analgesic rub also applied per order. Patient is highly anxious and is trembling.
--- NOTE | 2020-01-23 11:34 | NUR ---
Patient has been anxious this morning. She is visibly trembling. Patient asked nurse to sit on her bed to "feel the bed shaking". She stated the figueroa and floor were shaking also. Nurse assured her that they were not, she was trembling and it may have felt like the bed was moving". Patient was talking about her anxiety and said "Once I get going I can't slow down". After morning medications patient eventually became calmer and was able to participate in a group activity in the day room. Patient has requested coloring sheets and has been coloring with markers in her room. She appears much calmer now. Patient has not been aggressive or made any SI statements this day. She had been tearful prior to her medications but has stopped crying now.
[2020-01-23] MEDS: QUEtiapine 25 MG TABLET. PO SCH ×2 (12:50→20:49)
[2020-01-23 15:45] VITALS: BP 145/82
[2020-01-23] MEDS: LIDOCAINE (700MG/PATCH) PATCH. TD SCH (17:36)
--- NOTE | 2020-01-23 18:21 | NUR ---
Patient appeared very anxious before dinner, she was crying, trembling and making statements like "my life is a real mess" and "things are so messed up". This was immediately following her conversation with her SW about discharging to a facility rather than her home. She is still tearful but has calmed down since dinner and is sitting on her bed coloring.
[2020-01-23] MEDS: ATORVASTATIN CALCIUM 20 MG TABLET PO SCH (20:48)
--- NOTE | 2020-01-23 22:05 | PDOC ---
Exam Note: Alistair Note: Please also refer to the separate dictated note~for this date of service dictated separately.~Patient seen individually. Discussed the patient with Nursing staff reviewed the chart.~Reviewed interim history and current functioning. Reviewed vital signs,~Labs/ Radiology~and current medications noted below. Continue current treatment with the changes noted in the dictated addendum note Assessment: Vital Signs/I&O: Vital Signs Date Time Temp Pulse Resp B/P (MAP) Pulse Ox O2 Delivery O2 Flow Rate FiO2 01/23/20 15:45 97.7 74 18 145/82 (103) 96 01/22/20 06:30 Room Air I & O 01/22/20 01/22/20 01/23/20 15:00 23:00 07:00 Intake Total 720 ml 220 ml Balance 720 ml 220 ml Current Medications: Meds: Current Medications Medications (Trade) Dose Ordered Sig/Williams Route PRN Reason Start Time Stop Time Status Last Admin Dose Admin Quetiapine Fumarate (SEROquel) 50 mg 0900,1700 PO 01/23/20 09:00 01/23/20 17:36 I have reviewed the current psychotropics carefully including drug interactions. Risk benefit ratio favors no change other than as noted in my dictated progress note. Diagnosis: Problems: (1) Major depressive disorder, recurrent episode (2) Mild cognitive impairment (3) Anxiety disorder, unspecified (4) Impulse control disorder AGNIESZKA COLLADO MD Jan 23, 2020 22:05
--- NOTE | 2020-01-24 02:19 | NUR ---
Pt has been in her room this shift. She took meds whole without difficulty. She said she is anxious and hopes things will returned goods receiving clerk alright for her since she is discharging to a facility. She has had no behaviors tonight.
[2020-01-24] MEDS: LEVOTHYROXINE 88 MCG TABLET PO SCH (05:36)
[2020-01-24 06:30] VITALS: BP 138/75
--- NOTE | 2020-01-24 06:37 | PDOC ---
Exam Note: Alistair Note: This note is a late entry for 01/22/2020 covers elements not covered in my initial note. Subjective: The patient was seen face to face in the evening of 01/22/2020. Discussed with nursing staff, reviewed the chart. The patient has been quite anxious at times, other times she is doing a little better. She is quite fixated on discharge plans and where she would be going and I discussed options with her at length in the evening. Review of Systems: She is hard of hearing. Impaired ambulation with walker. No CV, , pulmonary, eye system symptoms on review. Mental Status Exam: Reasonably oriented. The patient is quite verbal, interactive, fixated on the pain, some of it is understandable. Attention span is short. No suicidal or homicidal ideation. Mood lability is improved. Laboratory Data: Reviewed. Impression: Major depressive disorder recurrent. Mild cognitive impairment. Anxiety disorder unspecified. Impulse control disorder unspecified. Plan: Continue current psychotropics from initial note. Assessment: Vital Signs/I&O: Vital Signs Date Time Temp Pulse Resp B/P (MAP) Pulse Ox O2 Delivery O2 Flow Rate FiO2 01/24/20 06:30 97.9 72 16 138/75 (96) 96 01/22/20 06:30 Room Air I & O 01/23/20 01/23/20 01/24/20 15:00 23:00 07:00 Intake Total 600 ml 360 ml Balance 600 ml 360 ml Current Medications: Meds: Current Medications Medications (Trade) Dose Ordered Sig/Williams Route PRN Reason Start Time Stop Time Status Last Admin Dose Admin Quetiapine Fumarate (SEROquel) 50 mg 0900,1700 PO 01/23/20 09:00 01/23/20 17:36 I have reviewed the current psychotropics carefully including drug interactions. Risk benefit ratio favors no change other than as noted in my dictated progress note. Diagnosis: Problems: (1) Major depressive disorder, recurrent episode (2) Mild cognitive impairment (3) Anxiety disorder, unspecified (4) Impulse control disorder AGNIESZKA COLLADO MD Jan 24, 2020 06:37
--- NOTE | 2020-01-24 06:53 | PDOC ---
Exam Note: Alistair Note: This note is a late entry for 01/23/2020 covers elements not covered in my initial note. Subjective: The patient was seen face to face in the evening of 01/23/2020 with Elin JEFFERSON. Discussed with nursing staff, reviewed the chart. She slept 8-1/2 hours previous night. She has been somewhat anxious. This morning she was fixated that she was having tremors. In fact she was trembling with anxiety, standing at the window felt the figueroa were shaking. I processed this with her individually in her room in the evening. Review of Systems: She is hard of hearing. Impaired ambulation with walker. No CV, , pulmonary, eye system symptoms on review. Mental Status Exam: Reasonably oriented. During individual visit she talked at some length about discharge plans. I had earlier in the day discussed with Madina, social science manager. Laboratory Data: Reviewed. Impression: Major depressive disorder recurrent. Mild cognitive impairment. Anxiety disorder unspecified. Impulse control disorder unspecified. Plan: Transition to assisted living next Tuesday. The patient was somewhat overwhelmed as I addressed this with her. She said she was going to go home and somewhat disappointed she will be in an assisted living. We addressed this. Continue current psychotropics. We may need to increase the Seroquel further for her anxiety and mood stabilization. Assessment: Vital Signs/I&O: Vital Signs Date Time Temp Pulse Resp B/P (MAP) Pulse Ox O2 Delivery O2 Flow Rate FiO2 01/24/20 06:30 97.9 72 16 138/75 (96) 96 01/22/20 06:30 Room Air I & O 01/23/20 01/23/20 01/24/20 15:00 23:00 07:00 Intake Total 600 ml 360 ml Balance 600 ml 360 ml Current Medications: Meds: Current Medications Medications (Trade) Dose Ordered Sig/Williams Route PRN Reason Start Time Stop Time Status Last Admin Dose Admin Quetiapine Fumarate (SEROquel) 50 mg 0900,1700 PO 01/23/20 09:00 01/23/20 17:36 I have reviewed the current psychotropics carefully including drug interactions. Risk benefit ratio favors no change other than as noted in my dictated progress note. Diagnosis: Problems: (1) Major depressive disorder, recurrent episode (2) Mild cognitive impairment (3) Anxiety disorder, unspecified (4) Impulse control disorder HEAVEN,MAN M MD Jan 24, 2020 06:53
[2020-01-24] MEDS: ACETAMINOPHEN 325 MG TABLET PO PRN ×2 (07:23→18:22)
[2020-01-24] MEDS: CYCLOBENZAPRINE 10 MG TABLET. PO PRN ×2 (07:23→18:22)
[2020-01-24] MEDS: PATCH REMOVAL. MC SCH (07:24)
--- NOTE | 2020-01-24 07:24 | NUR ---
Patient is reporting pain in her shoulders and neck. PRN flexleril and tylenol given for pain per order.
[2020-01-24] MEDS: MULTIVITAMIN with MINERAL TABLET. PO SCH (09:28)
[2020-01-24] MEDS: DOCUSATE SODIUM 100 MG CAPSULE PO SCH ×2 (09:28→20:46)
[2020-01-24] MEDS: METHYL SALICYLATE/MENTHOL TOPICAL OINTMENT 57GM TUBE. TP SCH ×3 (09:28→20:46)
[2020-01-24] MEDS: ASPIRIN CHEWABLE 81 MG TABLET. PO SCH (09:28)
[2020-01-24] MEDS: lamoTRIgine 100 MG TABLET. PO SCH (09:28)
[2020-01-24] MEDS: FAMOTIDINE 20 MG TABLET PO SCH ×2 (09:28→20:46)
[2020-01-24] MEDS: POLYETHYLENE GLYCOL 3350 17 GM PACKET. PO SCH (09:28)
[2020-01-24] MEDS: QUEtiapine 50 MG TABLET. PO SCH ×4 (09:28→20:46)
[2020-01-24] MEDS: CALCIUM CARBONATE 500 MG TABLET PO SCH (09:29)
[2020-01-24] MEDS: METOPROLOL SUCC 24HR ER 25 MG TAB.ER.24H. PO SCH (09:29)
[2020-01-24] MEDS: DONEPEZIL HCL 10 MG TABLET PO SCH (09:29)
--- NOTE | 2020-01-24 10:58 | NUR ---
WEEKLY ACTIVITY THERAPY NOTE Date of Admission: 01/05 Date of AT Assessment: 01/06 Precipitating behaviors that initiated intake and admission: SI Goal aimed:increase stress management/relaxation and community resources Initial Goal: Pt will participate in at least three group Activity Therapy sessions per week. Weekly progress towards goal: exceeded, 01/11 Group participation level: 7 mod, 3 full Weekly highlights: participated in all groups offered and two individual sessions Behaviors observed: believing the bed and chair were vibrating Tuesday and Tuesday, sleepier those days also, some anxious moments that need guidance, more independent and fully engaged as the week has progressed, only does lower body stretches/ exercises Plan: change goal to: Pt will will participate in all Activity Therapy groups offered Beneficial adaptations: coloring, weighted blanket, deep breathing when anxious
--- NOTE | 2020-01-24 11:04 | TX PLAN ---
Interdisciplinary Tx Plan Admission Information Jan 06, 2020 at 14:00 Legal Status (on Admission): Voluntary DPOA/Guardian Name: Giuseppe Dinh Contact Verified Code Status: DNR Allergies: Coded Allergies: SULTANA Inhibitors (Verified Allergy, Unknown, 01/01/20) Penicillins (Verified Allergy, Unknown, 01/01/20) phenazopyridine (Verified Allergy, Unknown, 01/01/20) Diagnoses Primary Diagnosis: MDD Reasons for Admission: Aggressive, Depressed, Suicidal ideation Problem in Patient's Words: I have trouble at home and am not dealing with it well. Additional Admission Comments: According to the intake, pt is SI, throughing herself on the floor "to ". Pt is increasingly depressed and hits her head against the bed rails. Aggressive with granddtr. Problems Active Problems: Depression Confusion Inactive Problems: Medication Mgmt Pt Strengths/Limitations Ability for [place]: Poor Cognitive Functioning/Ability: Fair Communication Skills/Ability: Fair Financial Resources: Fair Insight/Judgement: Fair Intellectual Ability: Fair Physical Health: Poor Social Skills: Fair Stability in Family: Fair Stability in School/Work: Poor Verbal Skills: Fair Discharge Criteria Discharge Criteria: No need for close observ., Adequate arrangements @DC, Improved behavior, Improved mood/thought Preliminary Discharge Plan Preliminary DC Plan: Placement Needed, Other Other Arrangements: May need referrals to [facility]/ at discharge Special Precautions Fall Risk: Moderate Initial D/C Plan Undecided at this time; home vs. placement Identified Discharge Needs: Potential referrals needed in the event family decides not to have pt home. Currently Utilized Resources Currently Utilized Resources/P: Primary Care Physician Referrals Community Resources: Mental Health Services potential start up for hospice Identified Problems/Hx/Goals Objectives/Short-Term Goals Short Term Goals: Dec. Aggression, Dec. Symp. Depression, Medication Stabilization, Promote Coping Skill Short Term Goals in Patient's: Figure out my next steps. I want to go home but my family may decide differently. Interventions/Frequency Staff Interventions/Frequency&: Psychiatrist to assess pt at least 3x per week for medication management. social welfare research worker to asses pt at least 2x per week and continually assess discharge needs/ barriers. Nursing to assess behaviors, medications and complete 15 minute checks daily. Encourage participation in group activities (if applicable) or 1:1 engagement based off Activities Dept. 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 Education: Pt reports graduating HS (12th grade) Community Follow-up Primary Care Physician Community Provider/Family Inpu: She is just having more troubles with her grandaughter and she can't care for her anymore. It maybe time to send her to a usp. 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 Pt continues to be tearful and anxious, attention-seeking and starting to appear somewhat agitated. Pt family has looked at placement at [facility]. If this works pt will discharge straight there on Tuesday. Pt during treatment team appeared to have fallen, details of the fall will follow in a note by nursing. Pt family will be notified and SW will continue to work with pt family re: discharge plans. MICHAEL MITCHELL Jan 24, 2020 11:04
[2020-01-24 15:35] VITALS: BP 127/76
--- NOTE | 2020-01-24 16:47 | NUR ---
Patient was anxious in the morning. She was upset that she isn't going back to her home after she leaves here and will be going to a facility. She stated several times that "her life is just messed up now". Patient continues to insist that her bed is moving and asked this nurse to sit on the bed and see. Nurse reassured patient that the bed is not moving by itself, that if it is moving it is because patient is trembling while sitting on the bed. Patient stated it feels like she has always had a problem with anxiety. Staff assisted patient to lay down at around 1030 and she was encouraged to stay in bed for at least 30 minutes. She was calmer after she got up from her rest. Patient has been calmer this afternoon, she participated in group and has been coloring a picture in her room. Patient is once again very concerned that her dentures and hearing aides will not get locked in the closet tonight. She has asked twice if this nurse would lock them in the closet for her after dinner.
[2020-01-24] MEDS: LIDOCAINE (700MG/PATCH) PATCH. TD SCH (18:13)
--- NOTE | 2020-01-24 18:24 | NUR ---
Patient reports neck and bilateral shoulder pain. She has history of pain from an old fall. PRN flexeril and tylenol give per Dr orders for pain. Will continue to monitor.
[2020-01-24] MEDS: ATORVASTATIN CALCIUM 20 MG TABLET PO SCH (20:46)
--- NOTE | 2020-01-24 22:12 | PDOC ---
Exam Note: Alistair Note: Please also refer to the separate dictated note~for this date of service dictated separately.~Patient seen individually. Discussed the patient with Nursing staff reviewed the chart.~Reviewed interim history and current functioning. Reviewed vital signs,~Labs/ Radiology~and current medications noted below. Continue current treatment with the changes noted in the dictated addendum note Assessment: Vital Signs/I&O: Vital Signs Date Time Temp Pulse Resp B/P (MAP) Pulse Ox O2 Delivery O2 Flow Rate FiO2 01/24/20 15:35 99.1 88 24 127/76 (93) 98 01/22/20 06:30 Room Air I & O 01/23/20 01/23/20 01/24/20 15:00 23:00 07:00 Intake Total 600 ml 360 ml Balance 600 ml 360 ml Current Medications: Meds: Current Medications Medications (Trade) Dose Ordered Sig/Williams Route PRN Reason Start Time Stop Time Status Last Admin Dose Admin Quetiapine Fumarate (SEROquel) 50 mg QID PO 01/24/20 13:00 01/24/20 20:46 Multi-Ingredient Ointment (Analgesic Runnells) 1 clarke QID TP 01/24/20 21:00 01/24/20 20:46 I have reviewed the current psychotropics carefully including drug interactions. Risk benefit ratio favors no change other than as noted in my dictated progress note. Diagnosis: Problems: (1) Major depressive disorder, recurrent episode (2) Mild cognitive impairment (3) Anxiety disorder, unspecified (4) Impulse control disorder AGNIESZKA COLLADO MD Jan 24, 2020 22:11
[2020-01-25] MEDS: LEVOTHYROXINE 88 MCG TABLET PO SCH (05:47)
[2020-01-25 06:44] VITALS: BP 143/82
[2020-01-25] MEDS: PATCH REMOVAL. MC SCH (07:00)
[2020-01-25] MEDS: MULTIVITAMIN with MINERAL TABLET. PO SCH (08:42)
[2020-01-25] MEDS: CYCLOBENZAPRINE 10 MG TABLET. PO PRN ×2 (08:42→16:07)
[2020-01-25] MEDS: lamoTRIgine 100 MG TABLET. PO SCH (08:42)
[2020-01-25] MEDS: ACETAMINOPHEN 325 MG TABLET PO PRN ×2 (08:42→16:07)
[2020-01-25] MEDS: CALCIUM CARBONATE 500 MG TABLET PO SCH (08:43)
[2020-01-25] MEDS: ASPIRIN CHEWABLE 81 MG TABLET. PO SCH (08:43)
[2020-01-25] MEDS: DOCUSATE SODIUM 100 MG CAPSULE PO SCH ×2 (08:43→20:03)
[2020-01-25] MEDS: METOPROLOL SUCC 24HR ER 25 MG TAB.ER.24H. PO SCH (08:43)
[2020-01-25] MEDS: DONEPEZIL HCL 10 MG TABLET PO SCH (08:43)
[2020-01-25] MEDS: QUEtiapine 50 MG TABLET. PO SCH ×4 (08:43→20:02)
[2020-01-25] MEDS: METHYL SALICYLATE/MENTHOL TOPICAL OINTMENT 57GM TUBE. TP SCH ×4 (08:44→20:03)
[2020-01-25] MEDS: POLYETHYLENE GLYCOL 3350 17 GM PACKET. PO SCH (08:44)
[2020-01-25] MEDS: FAMOTIDINE 20 MG TABLET PO SCH ×2 (08:44→20:02)
--- NOTE | 2020-01-25 10:29 | NUR ---
Patient states she is anxious and has neck pain. Asked for PRN flexeril and tylenol at 0845. Given per order for neck pain. Patient sitting in her room in the chair and asked nurse to massage her neck while nurse was applying Muscle Rub cream. Nurse massaged patients neck, patient stated it felt a little better. Patient compliant with medications, cooperative and calm.
[2020-01-25 16:02] VITALS: BP 137/81
--- NOTE | 2020-01-25 18:00 | NUR ---
Patient is extremely agitated, tearful, and anxious. She is upset that SW did not speak with her before leaving; and states she has no idea when she is leaving, if her family will be able to come get her next week, where she is going, if she will be going home first then to assisted living, or who is going to help her. Attempted to assure patient that she will be taken care of, and that this information would be communicated when it is available. left for SW; provided patient with a box of tissues, will continue to monitor and report to oncoming staff.
[2020-01-25] MEDS: LIDOCAINE (700MG/PATCH) PATCH. TD SCH (19:09)
[2020-01-25] MEDS: ATORVASTATIN CALCIUM 20 MG TABLET PO SCH (20:03)
--- NOTE | 2020-01-25 21:59 | PDOC ---
Exam Note: Alistair Note: Please also refer to the separate dictated note~for this date of service dictated separately.~Patient seen individually. Discussed the patient with Nursing staff reviewed the chart.~Reviewed interim history and current functioning. Reviewed vital signs,~Labs/ Radiology~and current medications noted below. Continue current treatment with the changes noted in the dictated addendum note Assessment: Vital Signs/I&O: Vital Signs Date Time Temp Pulse Resp B/P (MAP) Pulse Ox O2 Delivery O2 Flow Rate FiO2 01/25/20 16:02 97.7 75 19 137/81 (99) 99 01/22/20 06:30 Room Air I & O 01/24/20 01/24/20 01/25/20 15:00 23:00 07:00 Intake Total 565 ml 470 ml Balance 565 ml 470 ml Current Medications: I have reviewed the current psychotropics carefully including drug interactions. Risk benefit ratio favors no change other than as noted in my dictated progress note. Diagnosis: Problems: (1) Major depressive disorder, recurrent episode (2) Mild cognitive impairment (3) Anxiety disorder, unspecified (4) Impulse control disorder AGNIESZKA COLLADO MD Jan 25, 2020 21:59
--- NOTE | 2020-01-26 02:03 | NUR ---
Pt has been in her room tonight, cooperative with HS meds. She has been sleeping and has had no behaviors tonight.
[2020-01-26] MEDS: LEVOTHYROXINE 88 MCG TABLET PO SCH (05:46)
[2020-01-26 06:10] VITALS: BP 147/85
--- NOTE | 2020-01-26 06:38 | PDOC ---
Exam Note: Alistair Note: This note is a late entry for DOS 01/22/2020 and an addendum to the progress note dictated earlier for 01/22/2020. Subjective: The patient was seen face to face in the evening of 01/22/2020 with Karen JEFFERSON. She slept 7 hours previous night. She was convinced in the morning that the bed and the figueroa were vibrating, in fact she was quite tremulous herself which made her perceive this. Rest information unchanged as previously dictated. Plan: The patient is currently on 37.5 mg 4 times a day. We will increase it for the first and third dosage to 50 mg and the other two dosages will remain 37.5 mg. Rest unchanged what was dictated earlier. Assessment: Vital Signs/I&O: Vital Signs Date Time Temp Pulse Resp B/P (MAP) Pulse Ox O2 Delivery O2 Flow Rate FiO2 01/26/20 06:10 98.0 64 12 147/85 (105) 97 01/22/20 06:30 Room Air I & O 01/25/20 01/25/20 01/26/20 15:00 23:00 07:00 Intake Total 790 ml 240 ml 120 ml Balance 790 ml 240 ml 120 ml Current Medications: I have reviewed the current psychotropics carefully including drug interactions. Risk benefit ratio favors no change other than as noted in my dictated progress note. Diagnosis: Problems: (1) Major depressive disorder, recurrent episode (2) Mild cognitive impairment (3) Anxiety disorder, unspecified (4) Impulse control disorder AGNIESZKA COLLADO MD Jan 26, 2020 06:38
--- NOTE | 2020-01-26 06:56 | PDOC ---
Exam Note: Alistair Note: This note is a late entry for 01/24/2020 covers elements not covered in my initial note. Subjective: The patient was seen face to face in the morning of 01/24/2020 for treatment meeting with Theresa Painter Nicky (social service staff), Natalie, Activity Therapy, and Elin JEFFERSON. Discussed with nursing staff, reviewed the chart. She was also seen face to face in the evening. Appetite is 85%. She slept 8 hours previous night. Average 7-1/2 hours. She remains anxious, restless, tremulous at times, but feels her bed and figueroa are moving. This further heightens her anxiety. She complains of neck pain. Review of Systems: She is hard of hearing. Impaired ambulation with walker. No CV, , system symptoms on review. Mental Status Exam: Reasonably oriented to herself and situation. Speech is coherent, rapid at times. Abstraction is fair. Computation is impaired. Language function is intact. Attention span is short. Mood and affect still depressed and anxious. No active suicidal ideation. Laboratory Data: Reviewed. Impression: Major depressive disorder recurrent. Mild cognitive impairment. Anxiety disorder unspecified. Impulse control disorder unspecified. Plan: She is attending groups. We will increase the Seroquel to 50 mg 4 times a day. Rest unchanged for now. Assessment: Vital Signs/I&O: Vital Signs Date Time Temp Pulse Resp B/P (MAP) Pulse Ox O2 Delivery O2 Flow Rate FiO2 01/26/20 06:10 98.0 64 12 147/85 (105) 97 01/22/20 06:30 Room Air I & O 01/25/20 01/25/20 01/26/20 14:59 22:59 06:59 Intake Total 790 ml 240 ml 120 ml Balance 790 ml 240 ml 120 ml Current Medications: I have reviewed the current psychotropics carefully including drug interactions. Risk benefit ratio favors no change other than as noted in my dictated progress note. Diagnosis: Problems: (1) Major depressive disorder, recurrent episode (2) Mild cognitive impairment (3) Anxiety disorder, unspecified (4) Impulse control disorder AGNIESZKA COLLADO MD Jan 26, 2020 06:56
--- NOTE | 2020-01-26 07:21 | PDOC ---
Exam Note: Alistair Note: This note is a late entry for 01/25/2020 covers elements not covered in my initial note. Subjective: The patient was seen face to face in the evening of 01/25/2020 with Wilfredo JEFFERSON. Discussed with nursing staff, reviewed the chart. The patient slept 7-3/4 hours previous night. She has been anxious and the more anxious she gets, the tighter her neck muscles get and she has worsening neck pain. She gets Bengay 4 times a day. Medical management for this with Dr. Castro/Dr. Irizarry. She is less somatic, little better, less tearful. Review of Systems: She has neck pain. She is hard of hearing. Impaired ambulation with walker. No CV, , system symptoms on review. Mental Status Exam: Reasonably oriented to herself and situation. Speech is coherent. Abstraction is fair. Computation is impaired. Language function is intact. Attention span is short. Mood and affect still depressed and anxious. No active suicidal ideation. Laboratory Data: Reviewed. Impression: Major depressive disorder recurrent. Mild cognitive impairment. Anxiety disorder unspecified. Impulse control disorder unspecified. Plan: No change from initial note. Assessment: Vital Signs/I&O: Vital Signs Date Time Temp Pulse Resp B/P (MAP) Pulse Ox O2 Delivery O2 Flow Rate FiO2 01/26/20 06:10 98.0 64 12 147/85 (105) 97 01/22/20 06:30 Room Air I & O 01/25/20 01/25/20 01/26/20 15:00 23:00 07:00 Intake Total 790 ml 240 ml 120 ml Balance 790 ml 240 ml 120 ml Current Medications: I have reviewed the current psychotropics carefully including drug interactions. Risk benefit ratio favors no change other than as noted in my dictated progress note. Diagnosis: Problems: (1) Major depressive disorder, recurrent episode (2) Mild cognitive impairment (3) Anxiety disorder, unspecified (4) Impulse control disorder AGNIESZKA COLLADO MD Jan 26, 2020 07:21
[2020-01-26] MEDS: ASPIRIN CHEWABLE 81 MG TABLET. PO SCH (08:13)
[2020-01-26] MEDS: DOCUSATE SODIUM 100 MG CAPSULE PO SCH ×2 (08:13→20:05)
[2020-01-26] MEDS: PATCH REMOVAL. MC SCH (08:13)
[2020-01-26] MEDS: POLYETHYLENE GLYCOL 3350 17 GM PACKET. PO SCH (08:13)
[2020-01-26] MEDS: lamoTRIgine 100 MG TABLET. PO SCH (08:13)
[2020-01-26] MEDS: DONEPEZIL HCL 10 MG TABLET PO SCH (08:13)
[2020-01-26] MEDS: CALCIUM CARBONATE 500 MG TABLET PO SCH (08:14)
[2020-01-26] MEDS: MULTIVITAMIN with MINERAL TABLET. PO SCH (08:14)
[2020-01-26] MEDS: METOPROLOL SUCC 24HR ER 25 MG TAB.ER.24H. PO SCH (08:14)
[2020-01-26] MEDS: FAMOTIDINE 20 MG TABLET PO SCH ×2 (08:14→20:05)
[2020-01-26] MEDS: QUEtiapine 50 MG TABLET. PO SCH ×4 (08:14→20:05)
[2020-01-26] MEDS: CYCLOBENZAPRINE 10 MG TABLET. PO PRN ×2 (08:15→20:15)
[2020-01-26] MEDS: METHYL SALICYLATE/MENTHOL TOPICAL OINTMENT 57GM TUBE. TP SCH ×4 (08:15→20:03)
[2020-01-26] MEDS: ACETAMINOPHEN 325 MG TABLET PO PRN ×2 (08:15→20:17)
[2020-01-26 08:59] LABS: BASO % 1 % (0-3); EOS # 0.3 x10^3/uL (0.0-0.7); EOS % 4 % (0-3); HEMATOCRIT 35.8 % (36.0-47.0); HEMOGLOBIN 11.9 g/dL (12.0-15.5); LYMPH # 1.5 x10^3/uL (1.0-4.8); LYMPH % 22 % (24-48); MEAN CORPUSCULAR HEMOGLOBIN 32 pg (25-35); MEAN CORPUSCULAR HGB CONC 33 g/dL (31-37); MEAN CORPUSCULAR VOLUME 95 fL (79-100); MONO # 0.5 x10^3/uL (0.0-1.1); MONO % 7 % (0-9); NEUT # 4.6 x10^3uL (1.8-7.7); NEUT % 67 % (31-73); PLATELET COUNT 224 x10^3/uL (140-400); RED BLOOD COUNT 3.76 x10^6/uL (3.50-5.40); RED CELL DISTRIBUTION WIDTH 13.9 % (11.5-14.5); WHITE BLOOD COUNT 6.9 x10^3/uL (4.0-11.0)
[2020-01-26 09:19] LABS: ALBUMIN/GLOBULIN RATIO 1.1 (1.0-1.7); CREATININE 1.3 mg/dL (0.6-1.0); GFR 38.9; POTASSIUM 4.3 mmol/L (3.5-5.1); TOTAL BILIRUBIN 0.2 mg/dL (0.2-1.0); TOTAL PROTEIN 7.7 g/dL (6.4-8.2)
--- NOTE | 2020-01-26 12:01 | NUR ---
Pt is calm, cooperative, and compliant. No agitation, no aggression, no hallucinations or delusions. Pts anxiety is much improved, and she does not appear to fixate on her medication as previously. She has more control over her emotions AEB not having panick attacks when her nurse cannot immediately assist her. She is compliant with her medication and assessment.
[2020-01-26 16:33] VITALS: BP 134/79
[2020-01-26] MEDS: LIDOCAINE (700MG/PATCH) PATCH. TD SCH (20:05)
[2020-01-26] MEDS: ATORVASTATIN CALCIUM 20 MG TABLET PO SCH (20:05)
[2020-01-26] MEDS: traZODone 50 MG TABLET. PO PRN (20:05)
--- NOTE | 2020-01-26 22:09 | PDOC ---
Exam Note: Alistair Note: Please also refer to the separate dictated note~for this date of service dictated separately.~Patient seen individually. Discussed the patient with Nursing staff reviewed the chart.~Reviewed interim history and current functioning. Reviewed vital signs,~Labs/ Radiology~and current medications noted below. Continue current treatment with the changes noted in the dictated addendum note Assessment: Vital Signs/I&O: Vital Signs Date Time Temp Pulse Resp B/P (MAP) Pulse Ox O2 Delivery O2 Flow Rate FiO2 01/26/20 16:33 97.7 83 20 134/79 (97) 97 01/22/20 06:30 Room Air I & O 01/25/20 01/25/20 01/26/20 14:59 22:59 06:59 Intake Total 790 ml 240 ml 120 ml Balance 790 ml 240 ml 120 ml Labs: Laboratory Tests Test 01/26/20 08:25 White Blood Count 6.9 x10^3/uL (4.0-11.0) Red Blood Count 3.76 x10^6/uL (3.50-5.40) Hemoglobin 11.9 g/dL (12.0-15.5) L Hematocrit 35.8 % (36.0-47.0) L Mean Corpuscular Volume 95 fL (79-100) Mean Corpuscular Hemoglobin 32 pg (25-35) Mean Corpuscular Hemoglobin Concent 33 g/dL (31-37) Red Cell Distribution Width 13.9 % (11.5-14.5) Platelet Count 224 x10^3/uL (140-400) Neutrophils (%) (Auto) 67 % (31-73) Lymphocytes (%) (Auto) 22 % (24-48) L Monocytes (%) (Auto) 7 % (0-9) Eosinophils (%) (Auto) 4 % (0-3) H Basophils (%) (Auto) 1 % (0-3) Neutrophils # (Auto) 4.6 x10^3uL (1.8-7.7) Lymphocytes # (Auto) 1.5 x10^3/uL (1.0-4.8) Monocytes # (Auto) 0.5 x10^3/uL (0.0-1.1) Eosinophils # (Auto) 0.3 x10^3/uL (0.0-0.7) Basophils # (Auto) 0.0 x10^3/uL (0.0-0.2) Sodium Level 137 mmol/L (136-145) Potassium Level 4.3 mmol/L (3.5-5.1) Chloride Level 102 mmol/L (98-107) Carbon Dioxide Level 23 mmol/L (21-32) Anion Gap 12 (6-14) Blood Urea Nitrogen 32 mg/dL (7-20) H Creatinine 1.3 mg/dL (0.6-1.0) H Estimated GFR (Cockcroft-Gault) 38.9 BUN/Creatinine Ratio 25 (6-20) H Glucose Level 74 mg/dL (70-99) Calcium Level 10.0 mg/dL (8.5-10.1) Total Bilirubin 0.2 mg/dL (0.2-1.0) Aspartate Amino Transferase (AST) 22 U/L (15-37) Alanine Aminotransferase (ALT) 23 U/L (14-59) Alkaline Phosphatase 67 U/L (46-116) Total Protein 7.7 g/dL (6.4-8.2) Albumin 4.0 g/dL (3.4-5.0) Albumin/Globulin Ratio 1.1 (1.0-1.7) Current Medications: I have reviewed the current psychotropics carefully including drug interactions. Risk benefit ratio favors no change other than as noted in my dictated progress note. Diagnosis: Problems: (1) Major depressive disorder, recurrent episode (2) Mild cognitive impairment (3) Anxiety disorder, unspecified (4) Impulse control disorder AGNIESZKA COLLADO MD Jan 26, 2020 22:09
--- NOTE | 2020-01-27 05:00 | NUR ---
Nursing Note The patient was located in her room for her assessment and medication pass. The patient was pleasant and interactive during her assessment. The patient requested PRN Flexeril and Tylenol with her HS medication r/t neck pain. The patient took her medication whole. The patient is currently sleeping in her room.
[2020-01-27] MEDS: LEVOTHYROXINE 88 MCG TABLET PO SCH (05:33)
[2020-01-27 06:05] VITALS: BP 132/78
[2020-01-27] MEDS: PATCH REMOVAL. MC SCH (07:00)
[2020-01-27] MEDS: QUEtiapine 50 MG TABLET. PO SCH ×4 (08:16→19:57)
[2020-01-27] MEDS: CALCIUM CARBONATE 500 MG TABLET PO SCH (08:16)
[2020-01-27] MEDS: POLYETHYLENE GLYCOL 3350 17 GM PACKET. PO SCH (08:16)
[2020-01-27] MEDS: ACETAMINOPHEN 325 MG TABLET PO PRN ×2 (08:16→20:02)
[2020-01-27] MEDS: ASPIRIN CHEWABLE 81 MG TABLET. PO SCH (08:16)
[2020-01-27] MEDS: CYCLOBENZAPRINE 10 MG TABLET. PO PRN ×2 (08:16→20:02)
[2020-01-27] MEDS: lamoTRIgine 100 MG TABLET. PO SCH (08:18)
[2020-01-27] MEDS: DONEPEZIL HCL 10 MG TABLET PO SCH (08:18)
[2020-01-27] MEDS: METOPROLOL SUCC 24HR ER 25 MG TAB.ER.24H. PO SCH (08:19)
[2020-01-27] MEDS: MULTIVITAMIN with MINERAL TABLET. PO SCH (08:19)
[2020-01-27] MEDS: FAMOTIDINE 20 MG TABLET PO SCH ×2 (08:19→19:57)
[2020-01-27] MEDS: DOCUSATE SODIUM 100 MG CAPSULE PO SCH ×2 (08:19→19:57)
[2020-01-27] MEDS: METHYL SALICYLATE/MENTHOL TOPICAL OINTMENT 57GM TUBE. TP SCH ×4 (09:00→19:58)
--- NOTE | 2020-01-27 10:08 | NUR ---
Pt is calm, cooperative, and compliant. No agitation, no aggression, no hallucinations or delusions. She is compliant with her medication and assessment.
[2020-01-27 16:10] VITALS: BP 117/73
[2020-01-27] MEDS: traZODone 50 MG TABLET. PO PRN (19:57)
[2020-01-27] MEDS: ATORVASTATIN CALCIUM 20 MG TABLET PO SCH (19:57)
[2020-01-27] MEDS: LIDOCAINE (700MG/PATCH) PATCH. TD SCH (20:00)
--- NOTE | 2020-01-27 22:00 | NUR ---
Pt located in her room this evening. Pleasant, cooperative and interactive. Compliant with whole medications. PRN Flexeril, Trazodone and Tylenol administered with HS medications per pt request.
[2020-01-28] MEDS: LEVOTHYROXINE 88 MCG TABLET PO SCH (05:46)
[2020-01-28 05:53] VITALS: BP 149/74
--- NOTE | 2020-01-28 06:48 | PDOC ---
Exam Note: Alistair Note: This note is a late entry for 01/26/2020 covers elements not covered in my initial note. Subjective: The patient was seen face to face in the evening of 01/26/2020 with Kiah JEFFERSON. Discussed with nursing staff, reviewed the chart. The patient slept 9-1/4 hours previous night. She has done somewhat better, still somewhat anxious. Review of Systems: She complains of neck pain. She is hard of hearing. Impaired ambulation with walker. No CV, , system symptoms on review. Mental Status Exam: Reasonably oriented to herself and situation. Speech is coherent. Abstraction is fair. Computation is impaired. Language function is intact. Attention span is short. Mood and affect still anxious, labile but better than before. No suicidal or homicidal ideation. Laboratory Data: Reviewed. Impression: Major depressive disorder recurrent. Mild cognitive impairment. Anxiety disorder unspecified. Impulse control disorder unspecified. Plan: No change from initial note. Assessment: Vital Signs/I&O: Vital Signs Date Time Temp Pulse Resp B/P (MAP) Pulse Ox O2 Delivery O2 Flow Rate FiO2 01/28/20 05:53 97.4 79 18 149/74 (99) 98 I & O 01/27/20 01/27/20 01/28/20 15:00 23:00 07:00 Intake Total 600 ml 460 ml Balance 600 ml 460 ml Current Medications: I have reviewed the current psychotropics carefully including drug interactions. Risk benefit ratio favors no change other than as noted in my dictated progress note. Diagnosis: Problems: (1) Major depressive disorder, recurrent episode (2) Mild cognitive impairment (3) Anxiety disorder, unspecified (4) Impulse control disorder AGNIESZKA COLLADO MD Jan 28, 2020 06:48
--- NOTE | 2020-01-28 07:06 | PDOC ---
Exam Note: Alistair Note: This note is a late entry for 01/27/2020 covers elements not covered in my initial note. Subjective: The patient was seen face to face in the evening of 01/27/2020 with Kiah JEFFERSON. Discussed with nursing staff, reviewed the chart. Overall the patient is still anxious. Review of Systems: She has neck pain but states she feels better. She is hard of hearing. Impaired ambulation with walker. No CV, , system symptoms on review. Mental Status Exam: Reasonably oriented. Speech is coherent, less pressured. Abstraction is fair. Computation is impaired. Language function is intact. Mood and affect withdrawn. Laboratory Data: Reviewed. Impression: Major depressive disorder recurrent. Mild cognitive impairment. Anxiety disorder unspecified. Impulse control disorder unspecified. Plan: No change from initial note. Assessment: Vital Signs/I&O: Vital Signs Date Time Temp Pulse Resp B/P (MAP) Pulse Ox O2 Delivery O2 Flow Rate FiO2 01/28/20 05:53 97.4 79 18 149/74 (99) 98 I & O 01/27/20 01/27/20 01/28/20 15:00 23:00 07:00 Intake Total 600 ml 460 ml Balance 600 ml 460 ml Current Medications: I have reviewed the current psychotropics carefully including drug interactions. Risk benefit ratio favors no change other than as noted in my dictated progress note. Diagnosis: Problems: (1) Major depressive disorder, recurrent episode (2) Mild cognitive impairment (3) Anxiety disorder, unspecified (4) Impulse control disorder AGNIESZKA COLLADO MD Jan 28, 2020 07:06
[2020-01-28] MEDS: ASPIRIN CHEWABLE 81 MG TABLET. PO SCH (09:16)
[2020-01-28] MEDS: DOCUSATE SODIUM 100 MG CAPSULE PO SCH ×2 (09:16→20:03)
[2020-01-28] MEDS: DONEPEZIL HCL 10 MG TABLET PO SCH (09:16)
[2020-01-28] MEDS: lamoTRIgine 100 MG TABLET. PO SCH (09:17)
[2020-01-28] MEDS: POLYETHYLENE GLYCOL 3350 17 GM PACKET. PO SCH (09:17)
[2020-01-28] MEDS: MULTIVITAMIN with MINERAL TABLET. PO SCH (09:20)
[2020-01-28] MEDS: FAMOTIDINE 20 MG TABLET PO SCH ×2 (09:20→20:03)
[2020-01-28] MEDS: CALCIUM CARBONATE 500 MG TABLET PO SCH (09:20)
[2020-01-28] MEDS: QUEtiapine 50 MG TABLET. PO SCH ×4 (09:20→20:03)
[2020-01-28] MEDS: METOPROLOL SUCC 24HR ER 25 MG TAB.ER.24H. PO SCH (09:21)
[2020-01-28] MEDS: METHYL SALICYLATE/MENTHOL TOPICAL OINTMENT 57GM TUBE. TP SCH ×4 (09:22→20:03)
[2020-01-28] MEDS: PATCH REMOVAL. MC SCH (09:28)
[2020-01-28] MEDS: ACETAMINOPHEN 325 MG TABLET PO PRN (09:33)
[2020-01-28] MEDS: CYCLOBENZAPRINE 10 MG TABLET. PO PRN (09:33)
--- NOTE | 2020-01-28 11:50 | NUR ---
She is compliant with her medication and assessment. Pt is calm, cooperative, and compliant. No agitation, no aggression, no hallucinations or delusions. Her anxiety is much improved since admission.
[2020-01-28 15:43] VITALS: BP 165/83
[2020-01-28] MEDS: LIDOCAINE (700MG/PATCH) PATCH. TD SCH (20:03)
[2020-01-28] MEDS: ATORVASTATIN CALCIUM 20 MG TABLET PO SCH (20:03)
--- NOTE | 2020-01-28 20:29 | NUR ---
Nursing Note: Location of Patient during Assessment: Pt sitting quietly on side of her bed at shift change. Behaviors Mood and Affect this shift: Pt calm, pleasant, and interactive when approached. Medication Compliant: Compliant with medications administered whole. Assessment Compliant: Cooperative and compliant with assessment. Pt c/o neck/shoulder pain. Scheduled analgesic rub and Lidoderm patch applied as ordered. Response After Interventions: Pt currently resting comfortably in bed with eyes closed.
--- NOTE | 2020-01-28 22:05 | PDOC ---
Exam Note: Alistair Note: Please also refer to the separate dictated note~for this date of service dictated separately.~Patient seen individually. Discussed the patient with Nursing staff reviewed the chart.~Reviewed interim history and current functioning. Reviewed vital signs,~Labs/ Radiology~and current medications noted below. Continue current treatment with the changes noted in the dictated addendum note Assessment: Vital Signs/I&O: Vital Signs Date Time Temp Pulse Resp B/P (MAP) Pulse Ox O2 Delivery O2 Flow Rate FiO2 01/28/20 15:43 97.8 73 18 165/83 (110) 99 I & O 01/27/20 01/27/20 01/28/20 15:00 23:00 07:00 Intake Total 600 ml 460 ml Balance 600 ml 460 ml Current Medications: I have reviewed the current psychotropics carefully including drug interactions. Risk benefit ratio favors no change other than as noted in my dictated progress note. Diagnosis: Problems: (1) Major depressive disorder, recurrent episode (2) Mild cognitive impairment (3) Anxiety disorder, unspecified (4) Impulse control disorder AGNIESZKA COLLADO MD Jan 28, 2020 22:05
[2020-01-29] MEDS: LEVOTHYROXINE 88 MCG TABLET PO SCH (05:03)
[2020-01-29] MEDS: ACETAMINOPHEN 325 MG TABLET PO PRN ×2 (05:04→19:51)
[2020-01-29] MEDS: CYCLOBENZAPRINE 10 MG TABLET. PO PRN ×2 (05:04→19:51)
[2020-01-29 05:34] VITALS: BP 149/76
[2020-01-29] MEDS: ASPIRIN CHEWABLE 81 MG TABLET. PO SCH (08:13)
[2020-01-29] MEDS: DOCUSATE SODIUM 100 MG CAPSULE PO SCH ×2 (08:13→19:51)
[2020-01-29] MEDS: POLYETHYLENE GLYCOL 3350 17 GM PACKET. PO SCH (08:13)
[2020-01-29] MEDS: lamoTRIgine 100 MG TABLET. PO SCH (08:14)
[2020-01-29] MEDS: DONEPEZIL HCL 10 MG TABLET PO SCH (08:14)
[2020-01-29] MEDS: MULTIVITAMIN with MINERAL TABLET. PO SCH (08:14)
[2020-01-29] MEDS: QUEtiapine 50 MG TABLET. PO SCH ×4 (08:14→19:51)
[2020-01-29] MEDS: FAMOTIDINE 20 MG TABLET PO SCH ×2 (08:14→19:51)
[2020-01-29] MEDS: CALCIUM CARBONATE 500 MG TABLET PO SCH (08:14)
[2020-01-29] MEDS: METOPROLOL SUCC 24HR ER 25 MG TAB.ER.24H. PO SCH (08:15)
[2020-01-29] MEDS: METHYL SALICYLATE/MENTHOL TOPICAL OINTMENT 57GM TUBE. TP SCH ×4 (08:17→19:51)
[2020-01-29] MEDS: PATCH REMOVAL. MC SCH (08:22)
--- NOTE | 2020-01-29 10:09 | NUR ---
Patient in her room, sitting on the side of the bed eating her breakfast. She stated she has pain in her neck and shoulders. She had received PRN pain medications at 0500, scheduled analgesic muscle rub applied. Patient has mad no SI statements. She did not express anxiety this morning.
[2020-01-29 16:08] VITALS: BP 158/85
[2020-01-29] MEDS: LIDOCAINE (700MG/PATCH) PATCH. TD SCH ×2 (18:04→19:51)
[2020-01-29] MEDS: ATORVASTATIN CALCIUM 20 MG TABLET PO SCH (19:52)
--- NOTE | 2020-01-29 21:20 | NUR ---
Nursing Note: Pt sitting quietly in her room at shift change. Pt calm, pleasant, and interactive when approached. Pt cooperative and compliant with assessment and medications. PRN Tylenol and Flexeril administered at HS for c/o neck and shoulder pain. Pt currently resting quietly in bed with eyes closed.
--- NOTE | 2020-01-29 21:59 | PDOC ---
Exam Note: Alistair Note: Please also refer to the separate dictated note~for this date of service dictated separately.~Patient seen individually. Discussed the patient with Nursing staff reviewed the chart.~Reviewed interim history and current functioning. Reviewed vital signs,~Labs/ Radiology~and current medications noted below. Continue current treatment with the changes noted in the dictated addendum note Assessment: Vital Signs/I&O: Vital Signs Date Time Temp Pulse Resp B/P (MAP) Pulse Ox O2 Delivery O2 Flow Rate FiO2 01/29/20 16:08 98.6 83 21 158/85 (109) 100 I & O 01/28/20 01/28/20 01/29/20 15:00 23:00 07:00 Intake Total 325 ml 905 ml Balance 325 ml 905 ml Current Medications: I have reviewed the current psychotropics carefully including drug interactions. Risk benefit ratio favors no change other than as noted in my dictated progress note. Diagnosis: Problems: (1) Major depressive disorder, recurrent episode (2) Mild cognitive impairment (3) Anxiety disorder, unspecified (4) Impulse control disorder AGNIESZKA COLLADO MD Jan 29, 2020 21:59
[2020-01-30] MEDS: LEVOTHYROXINE 88 MCG TABLET PO SCH (05:37)
[2020-01-30] MEDS: CYCLOBENZAPRINE 10 MG TABLET. PO PRN ×2 (05:37→16:01)
[2020-01-30] MEDS: ACETAMINOPHEN 325 MG TABLET PO PRN ×2 (05:37→16:01)
[2020-01-30 06:12] VITALS: BP 156/76
[2020-01-30] MEDS: PATCH REMOVAL. MC SCH (07:00)
--- NOTE | 2020-01-30 07:07 | PDOC ---
Exam Note: Alistair Note: This note is a late entry for 01/28/2020 covers elements not covered in my initial note. Subjective: The patient was seen face to face in the evening of 01/28/2020 with Kiah JEFFERSON. Discussed with nursing staff, reviewed the chart. The patient slept 7-3/4 hours previous night. Per nursing report the patient has been funny. She has a sense of humor, at times less anxious. Review of Systems: She is hard of hearing, still complains of neck pain. No CV, , system symptoms on review. Mental Status Exam: Reasonably oriented. As I met with her in her room she was quite verbal, interactive sitting at the side of her bed, still complains of neck pain but otherwise feels she is better. Speech is coherent. Abstraction is fair. Computation is impaired. Language function is intact. Mood and affect withdrawn. Laboratory Data: Reviewed. Impression: Major depressive disorder recurrent. Mild cognitive impairment. Anxiety disorder unspecified. Impulse control disorder unspecified. Plan: No change from initial note. She wanted to know about discharge plans and I addressed with her and will have social insurance analyst discuss with her as well. Assessment: Vital Signs/I&O: Vital Signs Date Time Temp Pulse Resp B/P (MAP) Pulse Ox O2 Delivery O2 Flow Rate FiO2 01/30/20 06:12 97.9 73 16 156/76 (102) 98 I & O 01/29/20 01/29/20 01/30/20 15:00 23:00 07:00 Intake Total 720 ml 600 ml Balance 720 ml 600 ml Current Medications: I have reviewed the current psychotropics carefully including drug interactions. Risk benefit ratio favors no change other than as noted in my dictated progress note. Diagnosis: Problems: (1) Major depressive disorder, recurrent episode (2) Mild cognitive impairment (3) Anxiety disorder, unspecified (4) Impulse control disorder AGNIESZKA COLLADO MD Jan 30, 2020 07:07
[2020-01-30] MEDS: DONEPEZIL HCL 10 MG TABLET PO SCH (08:11)
[2020-01-30] MEDS: ASPIRIN CHEWABLE 81 MG TABLET. PO SCH (08:11)
[2020-01-30] MEDS: FAMOTIDINE 20 MG TABLET PO SCH ×2 (08:11→20:20)
[2020-01-30] MEDS: MULTIVITAMIN with MINERAL TABLET. PO SCH (08:12)
[2020-01-30] MEDS: CALCIUM CARBONATE 500 MG TABLET PO SCH (08:12)
[2020-01-30] MEDS: DOCUSATE SODIUM 100 MG CAPSULE PO SCH ×2 (08:12→20:20)
[2020-01-30] MEDS: QUEtiapine 50 MG TABLET. PO SCH ×4 (08:14→20:20)
[2020-01-30] MEDS: lamoTRIgine 100 MG TABLET. PO SCH (08:14)
[2020-01-30] MEDS: METOPROLOL SUCC 24HR ER 25 MG TAB.ER.24H. PO SCH (08:14)
[2020-01-30] MEDS: METHYL SALICYLATE/MENTHOL TOPICAL OINTMENT 57GM TUBE. TP SCH ×4 (08:16→20:19)
[2020-01-30] MEDS: POLYETHYLENE GLYCOL 3350 17 GM PACKET. PO SCH (08:16)
--- NOTE | 2020-01-30 10:30 | NUR ---
REGLA received a call from Charlee at [facility] and was told that they have accepted pt; however, they are not able to take pt until Tuesday. They have all staff on board to have her admission, hopefully, to make a smooth transition and make pt less anxious about the move. Charlee reports that pt will need a Covid test 48 hours before discharge if possible. According the nurse, Elin, pt was swabbed first thing this AM. Pt will get another swab on Tuesday in hopes to get the results Tuesday and transition on Tuesday. REGLA will continue to keep Charlee up to date and make all discharge arrangements with the family.
--- NOTE | 2020-01-30 10:46 | NUR ---
Patient sitting at bedside with legs touching floor. No complaints but pain. No increase in pain. Patient states that pain is always there and never changes. Pt slightly more anxious this morning so we discussed how well she was doing and that she had already received her morning medications, once she was redirected and reminded how well she did yesterday she was less anxious and continued to eat her breakfast. No further complaints or concerns at this time.
--- NOTE | 2020-01-30 12:32 | NUR ---
Patient will need COVID swab 02/01 in preparation for discharge Sunday 02/04 per REGLA.
[2020-01-30 15:46] VITALS: BP 159/81
[2020-01-30] MEDS: ATORVASTATIN CALCIUM 20 MG TABLET PO SCH (20:20)
[2020-01-30] MEDS: LIDOCAINE (700MG/PATCH) PATCH. TD SCH (20:20)
--- NOTE | 2020-01-30 22:04 | PDOC ---
Exam Note: Alistair Note: Please also refer to the separate dictated note~for this date of service dictated separately.~Patient seen individually. Discussed the patient with Nursing staff reviewed the chart.~Reviewed interim history and current functioning. Reviewed vital signs,~Labs/ Radiology~and current medications noted below. Continue current treatment with the changes noted in the dictated addendum note Assessment: Vital Signs/I&O: Vital Signs Date Time Temp Pulse Resp B/P (MAP) Pulse Ox O2 Delivery O2 Flow Rate FiO2 01/30/20 15:46 98.0 77 16 159/81 (107) 99 Room Air I & O 01/29/20 01/29/20 01/30/20 14:59 22:59 06:59 Intake Total 720 ml 600 ml Balance 720 ml 600 ml Current Medications: I have reviewed the current psychotropics carefully including drug interactions. Risk benefit ratio favors no change other than as noted in my dictated progress note. Diagnosis: Problems: (1) Major depressive disorder, recurrent episode (2) Mild cognitive impairment (3) Anxiety disorder, unspecified (4) Impulse control disorder AGNIESZKA COLLADO MD Jan 30, 2020 22:04
--- NOTE | 2020-01-30 22:36 | NUR ---
Nursing Note: Pt sitting quietly in her room at shift change. Pt calm, pleasant, and interactive when approached. Pt cooperative and compliant with assessment and medications administered whole.
[2020-01-31] MEDS: LEVOTHYROXINE 88 MCG TABLET PO SCH (05:13)
[2020-01-31] MEDS: ACETAMINOPHEN 325 MG TABLET PO PRN ×2 (05:13→16:05)
[2020-01-31] MEDS: CYCLOBENZAPRINE 10 MG TABLET. PO PRN ×2 (05:13→16:05)
[2020-01-31 05:25] VITALS: BP 121/73
--- NOTE | 2020-01-31 07:38 | PDOC ---
Exam Note: Alistair Note: This note is a late entry for 01/29/2020 covers elements not covered in my initial note. Subjective: The patient was seen face to face in the evening of 01/29/2020 with Elin JEFFERSON. Discussed with nursing staff, reviewed the chart. The patient slept 9 hours previous night. She has had no crying spells, seems less anxious, does complain of neck pain. Review of Systems: She is hard of hearing, does complain of neck pain. No CV, , system symptoms on review. Mental Status Exam: Reasonably oriented. She is less anxious, less labile in her mood and subjectively states she feels better but is distressed with the neck pain. Speech is coherent. Abstraction is fair. Computation is impaired. Language function is intact. Mood and affect withdrawn. Laboratory Data: Reviewed. Impression: Major depressive disorder recurrent. Mild cognitive impairment. Anxiety disorder unspecified. Impulse control disorder unspecified. Plan: No change from initial note. We may need to increase Seroquel further as clinically indicated. Assessment: Vital Signs/I&O: Vital Signs Date Time Temp Pulse Resp B/P (MAP) Pulse Ox O2 Delivery O2 Flow Rate FiO2 01/31/20 05:25 97.5 70 16 121/73 (89) 95 Room Air I & O 01/30/20 01/30/20 01/31/20 15:00 23:00 07:00 Intake Total 875 ml 325 ml 240 ml Balance 875 ml 325 ml 240 ml Current Medications: I have reviewed the current psychotropics carefully including drug interactions. Risk benefit ratio favors no change other than as noted in my dictated progress note. Diagnosis: Problems: (1) Major depressive disorder, recurrent episode (2) Mild cognitive impairment (3) Anxiety disorder, unspecified (4) Impulse control disorder AGNIESZKA COLLADO MD Jan 31, 2020 07:38
--- NOTE | 2020-01-31 08:05 | PDOC ---
Exam Note: Alistair Note: This note is a late entry for 01/30/2020 covers elements not covered in my initial note. Subjective: The patient was reviewed on telehealth rounds in the evening of 01/30/2020 with Elin JEFFERSON. Discussed with nursing staff, reviewed the chart. The patient slept 8-1/2 hours previous night. Overall the patient has been less anxious, less labile in her mood, still complains of neck pain. Review of Systems: She is hard of hearing, still complains of neck pain. No CV, , system symptoms on review. Mental Status Exam: Reasonably oriented. Speech has some latency, coherent. Abstraction is fair. Computation is impaired. Mood and affect is improved. Laboratory Data: Reviewed. Impression: Major depressive disorder recurrent. Mild cognitive impairment. Anxiety disorder unspecified. Impulse control disorder unspecified. Plan: No change from initial note. Assessment: Vital Signs/I&O: Vital Signs Date Time Temp Pulse Resp B/P (MAP) Pulse Ox O2 Delivery O2 Flow Rate FiO2 01/31/20 05:25 97.5 70 16 121/73 (89) 95 Room Air I & O 01/30/20 01/30/20 01/31/20 15:00 23:00 07:00 Intake Total 875 ml 325 ml 240 ml Balance 875 ml 325 ml 240 ml Current Medications: I have reviewed the current psychotropics carefully including drug interactions. Risk benefit ratio favors no change other than as noted in my dictated progress note. Diagnosis: Problems: (1) Major depressive disorder, recurrent episode (2) Mild cognitive impairment (3) Anxiety disorder, unspecified (4) Impulse control disorder AGNIESZKA COLLADO MD Jan 31, 2020 08:05
[2020-01-31] MEDS: DONEPEZIL HCL 10 MG TABLET PO SCH (08:14)
[2020-01-31] MEDS: DOCUSATE SODIUM 100 MG CAPSULE PO SCH ×2 (08:14→20:20)
[2020-01-31] MEDS: METOPROLOL SUCC 24HR ER 25 MG TAB.ER.24H. PO SCH (08:14)
[2020-01-31] MEDS: ASPIRIN CHEWABLE 81 MG TABLET. PO SCH (08:14)
[2020-01-31] MEDS: CALCIUM CARBONATE 500 MG TABLET PO SCH (08:14)
[2020-01-31] MEDS: MULTIVITAMIN with MINERAL TABLET. PO SCH (08:14)
[2020-01-31] MEDS: POLYETHYLENE GLYCOL 3350 17 GM PACKET. PO SCH (08:15)
[2020-01-31] MEDS: lamoTRIgine 100 MG TABLET. PO SCH (08:15)
[2020-01-31] MEDS: FAMOTIDINE 20 MG TABLET PO SCH ×2 (08:15→20:20)
[2020-01-31] MEDS: QUEtiapine 50 MG TABLET. PO SCH ×4 (08:15→20:20)
[2020-01-31] MEDS: PATCH REMOVAL. MC SCH (08:28)
[2020-01-31] MEDS: METHYL SALICYLATE/MENTHOL TOPICAL OINTMENT 57GM TUBE. TP SCH ×4 (09:00→20:20)
--- NOTE | 2020-01-31 12:41 | NUR ---
Patient has reported neck pain several times this shift. She stated that she gets the best pain relief from the analgesic rub (anam lowe) that she gets QID. Patients PRN pain medications were given this morning. Patient had an episode of mild anxiety this morning, she was upset because her morning routine "wasn't what she was used to" since she has been at the hospital. This nurse got her clean sweats and a shirt and staff got her dentures and hearing aides out of her closet for her. Nurse was able to verbally redirect and calm patient. Patient has been pleasant, calm, compliant and cooperative this day.
--- NOTE | 2020-01-31 13:20 | NUR ---
WEEKLY ACTIVITY THERAPY NOTE Date of Admission: 01/05 Date of AT Assessment: 01/06 Precipitating behaviors that initiated intake and admission: SI Goal aimed:increase stress management/relaxation and community resources Initial Goal: Pt will participate in at least three group Activity Therapy sessions per week. Goal changed 01/23: Pt will will participate in all Activity Therapy groups offered Weekly progress towards goal: did not achieve, missed one group last morning Group participation level: 5 full, 4 mod Weekly highlights: smiled and laughed a couple times during [employer] game on Tuesday Behaviors observed: similar behaviors to last week, refrains from doing most exercises, pleasant with peers and controls frustrations with disruptive peers Plan: no change to goal Beneficial adaptations: coloring, weighted blanket, deep breathing when anxious
[2020-01-31 15:48] VITALS: BP 142/83
--- NOTE | 2020-01-31 18:26 | NUR ---
Patient started having anxiety issues again today around 5:45pm. She is worried that she wont be able to talk to her son. We called twice for her to talk to him and now she is concerned about her not having in her hearing aides and that she doesn't want to keep me if he calls late and she needs to brush her teeth and put everything away. She stated she has alot on her mind today. Her day started off with anxiety and she was less anxious most of the day, until this evening. She settled down about 6:50 once we put her hearing aides and teeth away. She states that if her son calls to let him know to please call tomorrow. We will also attempt to keep her schedule tomorrow to make sure that she doesnt start the day anxious.
[2020-01-31] MEDS: ATORVASTATIN CALCIUM 20 MG TABLET PO SCH (20:20)
[2020-01-31] MEDS: LIDOCAINE (700MG/PATCH) PATCH. TD SCH (20:21)
--- NOTE | 2020-01-31 21:56 | PDOC ---
Exam Note: Alistair Note: Please also refer to the separate dictated note~for this date of service dictated separately.~Patient seen individually. Discussed the patient with Nursing staff reviewed the chart.~Reviewed interim history and current functioning. Reviewed vital signs,~Labs/ Radiology~and current medications noted below. Continue current treatment with the changes noted in the dictated addendum note Assessment: Vital Signs/I&O: Vital Signs Date Time Temp Pulse Resp B/P (MAP) Pulse Ox O2 Delivery O2 Flow Rate FiO2 01/31/20 15:48 98.4 71 16 142/83 (102) 99 Room Air I & O 01/30/20 01/30/20 01/31/20 15:00 23:00 07:00 Intake Total 875 ml 325 ml 240 ml Balance 875 ml 325 ml 240 ml Current Medications: I have reviewed the current psychotropics carefully including drug interactions. Risk benefit ratio favors no change other than as noted in my dictated progress note. Diagnosis: Problems: (1) Major depressive disorder, recurrent episode (2) Mild cognitive impairment (3) Anxiety disorder, unspecified (4) Impulse control disorder AGNIESZKA COLLADO MD Jan 31, 2020 21:56
--- NOTE | 2020-02-01 01:47 | NUR ---
Last evening pt was in her room and reported neck pain which is said is partly caused from anxiety. Lidocaine patch and muscle balm were applied. She took meds whole without difficulty. She has been sleeping well and has had no behaviors tonight.
[2020-02-01] MEDS: LEVOTHYROXINE 88 MCG TABLET PO SCH (06:01)
[2020-02-01 06:18] VITALS: BP 134/80
[2020-02-01] MEDS: PATCH REMOVAL. MC SCH (07:00)
[2020-02-01 07:50] LABS: BASO % 1 % (0-3); EOS # 0.3 x10^3/uL (0.0-0.7); EOS % 5 % (0-3); HEMATOCRIT 31.7 % (36.0-47.0); HEMOGLOBIN 10.6 g/dL (12.0-15.5); LYMPH # 1.2 x10^3/uL (1.0-4.8); LYMPH % 19 % (24-48); MEAN CORPUSCULAR HEMOGLOBIN 31 pg (25-35); MEAN CORPUSCULAR HGB CONC 33 g/dL (31-37); MEAN CORPUSCULAR VOLUME 94 fL (79-100); MONO # 0.5 x10^3/uL (0.0-1.1); MONO % 8 % (0-9); NEUT # 4.2 x10^3uL (1.8-7.7); NEUT % 67 % (31-73); PLATELET COUNT 198 x10^3/uL (140-400); RED BLOOD COUNT 3.37 x10^6/uL (3.50-5.40); RED CELL DISTRIBUTION WIDTH 13.5 % (11.5-14.5); WHITE BLOOD COUNT 6.2 x10^3/uL (4.0-11.0)
[2020-02-01 08:00] LABS: ALBUMIN 3.4 g/dL (3.4-5.0); ALBUMIN/GLOBULIN RATIO 1.1 (1.0-1.7); CALCIUM 8.9 mg/dL (8.5-10.1); CREATININE 1.1 mg/dL (0.6-1.0); GFR 47.2; TOTAL BILIRUBIN 0.2 mg/dL (0.2-1.0); TOTAL PROTEIN 6.4 g/dL (6.4-8.2)
[2020-02-01] MEDS: FAMOTIDINE 20 MG TABLET PO SCH ×2 (08:06→20:21)
[2020-02-01] MEDS: QUEtiapine 50 MG TABLET. PO SCH ×4 (08:06→20:21)
[2020-02-01] MEDS: POLYETHYLENE GLYCOL 3350 17 GM PACKET. PO SCH (08:06)
[2020-02-01] MEDS: METOPROLOL SUCC 24HR ER 25 MG TAB.ER.24H. PO SCH (08:07)
[2020-02-01] MEDS: CALCIUM CARBONATE 500 MG TABLET PO SCH (08:07)
[2020-02-01] MEDS: lamoTRIgine 100 MG TABLET. PO SCH (08:07)
[2020-02-01] MEDS: ASPIRIN CHEWABLE 81 MG TABLET. PO SCH (08:07)
[2020-02-01] MEDS: MULTIVITAMIN with MINERAL TABLET. PO SCH (08:08)
[2020-02-01] MEDS: DOCUSATE SODIUM 100 MG CAPSULE PO SCH ×2 (08:08→20:21)
[2020-02-01] MEDS: DONEPEZIL HCL 10 MG TABLET PO SCH (08:08)
[2020-02-01] MEDS: METHYL SALICYLATE/MENTHOL TOPICAL OINTMENT 57GM TUBE. TP SCH ×4 (08:09→20:21)
[2020-02-01] MEDS: ACETAMINOPHEN 325 MG TABLET PO PRN ×2 (08:10→18:05)
[2020-02-01] MEDS: CYCLOBENZAPRINE 10 MG TABLET. PO PRN ×2 (08:10→18:05)
[2020-02-01 15:37] VITALS: BP 148/85
--- NOTE | 2020-02-01 17:28 | NUR ---
pt has been up for meals and groups. Has been anxious intermittently. Pt stated going out to day room stopped her anxiety immediately today. Has been compliant with meds and cares
[2020-02-01] MEDS: ATORVASTATIN CALCIUM 20 MG TABLET PO SCH (20:21)
[2020-02-01] MEDS: LIDOCAINE (700MG/PATCH) PATCH. TD SCH (20:22)
--- NOTE | 2020-02-01 22:04 | PDOC ---
Exam Note: Alistair Note: Please also refer to the separate dictated note~for this date of service dictated separately.~Patient seen individually. Discussed the patient with Nursing staff reviewed the chart.~Reviewed interim history and current functioning. Reviewed vital signs,~Labs/ Radiology~and current medications noted below. Continue current treatment with the changes noted in the dictated addendum note Assessment: Vital Signs/I&O: Vital Signs Date Time Temp Pulse Resp B/P (MAP) Pulse Ox O2 Delivery O2 Flow Rate FiO2 02/01/20 15:37 98.4 79 16 148/85 (106) 99 Room Air I & O 01/31/20 01/31/20 02/01/20 15:00 23:00 07:00 Intake Total 660 ml 480 ml Balance 660 ml 480 ml Labs: Laboratory Tests Test 02/01/20 07:17 White Blood Count 6.2 x10^3/uL (4.0-11.0) Red Blood Count 3.37 x10^6/uL (3.50-5.40) L Hemoglobin 10.6 g/dL (12.0-15.5) L Hematocrit 31.7 % (36.0-47.0) L Mean Corpuscular Volume 94 fL (79-100) Mean Corpuscular Hemoglobin 31 pg (25-35) Mean Corpuscular Hemoglobin Concent 33 g/dL (31-37) Red Cell Distribution Width 13.5 % (11.5-14.5) Platelet Count 198 x10^3/uL (140-400) Neutrophils (%) (Auto) 67 % (31-73) Lymphocytes (%) (Auto) 19 % (24-48) L Monocytes (%) (Auto) 8 % (0-9) Eosinophils (%) (Auto) 5 % (0-3) H Basophils (%) (Auto) 1 % (0-3) Neutrophils # (Auto) 4.2 x10^3uL (1.8-7.7) Lymphocytes # (Auto) 1.2 x10^3/uL (1.0-4.8) Monocytes # (Auto) 0.5 x10^3/uL (0.0-1.1) Eosinophils # (Auto) 0.3 x10^3/uL (0.0-0.7) Basophils # (Auto) 0.0 x10^3/uL (0.0-0.2) Sodium Level 138 mmol/L (136-145) Potassium Level 4.0 mmol/L (3.5-5.1) Chloride Level 103 mmol/L (98-107) Carbon Dioxide Level 26 mmol/L (21-32) Anion Gap 9 (6-14) Blood Urea Nitrogen 31 mg/dL (7-20) H Creatinine 1.1 mg/dL (0.6-1.0) H Estimated GFR (Cockcroft-Gault) 47.2 BUN/Creatinine Ratio 28 (6-20) H Glucose Level 89 mg/dL (70-99) Calcium Level 8.9 mg/dL (8.5-10.1) Total Bilirubin 0.2 mg/dL (0.2-1.0) Aspartate Amino Transferase (AST) 19 U/L (15-37) Alanine Aminotransferase (ALT) 22 U/L (14-59) Alkaline Phosphatase 57 U/L (46-116) Total Protein 6.4 g/dL (6.4-8.2) Albumin 3.4 g/dL (3.4-5.0) Albumin/Globulin Ratio 1.1 (1.0-1.7) Current Medications: I have reviewed the current psychotropics carefully including drug interactions. Risk benefit ratio favors no change other than as noted in my dictated progress note. Diagnosis: Problems: (1) Major depressive disorder, recurrent episode (2) Mild cognitive impairment (3) Anxiety disorder, unspecified (4) Impulse control disorder AGNIESZKA COLLADO MD Feb 01, 2020 22:04
[2020-02-02] MEDS: LEVOTHYROXINE 88 MCG TABLET PO SCH (05:41)
[2020-02-02 06:00] VITALS: BP 146/75
[2020-02-02] MEDS: PATCH REMOVAL. MC SCH (07:00)
--- NOTE | 2020-02-02 07:29 | PDOC ---
Exam Note: Alistair Note: This note is a late entry for 01/31/2020 covers elements not covered in my initial note. Subjective: The patient was seen face to face in the morning of 01/31/2020 with Elin JEFFERSON. Discussed with nursing staff, reviewed the chart. The patient slept 8-1/2 hours previous night. Overall the patient has been less anxious, still complains of neck pain. She is getting Flexeril and Tylenol for her neck pain. Review of Systems: She is hard of hearing, still complains of neck pain. No CV, , system symptoms on review. Mental Status Exam: Reasonably oriented. Speech has some latency, coherent. Abstraction is fair. Computation is impaired. Language function is intact. Mood and affect somewhat withdrawn. Laboratory Data: Reviewed. Impression: Major depressive disorder recurrent. Mild cognitive impairment. Anxiety disorder unspecified. Impulse control disorder unspecified. Plan: No change from initial note. Assessment: Vital Signs/I&O: Vital Signs Date Time Temp Pulse Resp B/P (MAP) Pulse Ox O2 Delivery O2 Flow Rate FiO2 02/02/20 06:00 97.5 72 16 146/75 (98) 95 Room Air I & O 02/01/20 02/01/20 02/02/20 14:59 22:59 06:59 Intake Total 550 ml 240 ml Balance 550 ml 240 ml Current Medications: I have reviewed the current psychotropics carefully including drug interactions. Risk benefit ratio favors no change other than as noted in my dictated progress note. Diagnosis: Problems: (1) Major depressive disorder, recurrent episode (2) Mild cognitive impairment (3) Anxiety disorder, unspecified (4) Impulse control disorder AGNIESZKA COLLADO MD Feb 02, 2020 07:29
[2020-02-02] MEDS: POLYETHYLENE GLYCOL 3350 17 GM PACKET. PO SCH (07:37)
[2020-02-02] MEDS: ASPIRIN CHEWABLE 81 MG TABLET. PO SCH (07:37)
[2020-02-02] MEDS: CALCIUM CARBONATE 500 MG TABLET PO SCH (07:38)
[2020-02-02] MEDS: DOCUSATE SODIUM 100 MG CAPSULE PO SCH ×2 (07:38→21:00)
[2020-02-02] MEDS: FAMOTIDINE 20 MG TABLET PO SCH ×2 (07:38→21:00)
[2020-02-02] MEDS: QUEtiapine 50 MG TABLET. PO SCH ×4 (07:38→21:00)
[2020-02-02] MEDS: lamoTRIgine 100 MG TABLET. PO SCH (07:38)
[2020-02-02] MEDS: DONEPEZIL HCL 10 MG TABLET PO SCH (07:38)
[2020-02-02] MEDS: MULTIVITAMIN with MINERAL TABLET. PO SCH (07:38)
[2020-02-02] MEDS: METHYL SALICYLATE/MENTHOL TOPICAL OINTMENT 57GM TUBE. TP SCH ×4 (07:39→21:01)
[2020-02-02] MEDS: METOPROLOL SUCC 24HR ER 25 MG TAB.ER.24H. PO SCH (07:39)
--- NOTE | 2020-02-02 07:40 | PDOC ---
Exam Note: Alistair Note: This note is a late entry for 02/01/2020 covers elements not covered in my initial note. Subjective: The patient was seen face to face in the evening of 02/01/2020 with Shara JEFFERSON. Discussed with nursing staff, reviewed the chart. The patient slept 8 hours previous night. She is quite anxious, restless previous night, somewhat more verbal. Review of Systems: She is hard of hearing, complains of neck pain. No CV, , system symptoms on review. Mental Status Exam: Reasonably oriented. I met with her in her room at length in the evening. The patient has repeatedly stated how much better she feels with her anxiety. Speech is coherent. Abstraction is fair. Computation is impaired. Language function is intact. Mood and affect withdrawn. Laboratory Data: Reviewed. Impression: Major depressive disorder recurrent. Mild cognitive impairment. Anxiety disorder unspecified. Impulse control disorder unspecified. Plan: No change from initial note. Assessment: Vital Signs/I&O: Vital Signs Date Time Temp Pulse Resp B/P (MAP) Pulse Ox O2 Delivery O2 Flow Rate FiO2 02/02/20 07:39 72 146/75 02/02/20 06:00 97.5 16 95 Room Air I & O 02/01/20 02/01/20 02/02/20 15:00 23:00 07:00 Intake Total 550 ml 240 ml Balance 550 ml 240 ml Current Medications: I have reviewed the current psychotropics carefully including drug interactions. Risk benefit ratio favors no change other than as noted in my dictated progress note. Diagnosis: Problems: (1) Major depressive disorder, recurrent episode (2) Mild cognitive impairment (3) Anxiety disorder, unspecified (4) Impulse control disorder AGNIESZKA COLLADO MD Feb 02, 2020 07:40
[2020-02-02] MEDS: CYCLOBENZAPRINE 10 MG TABLET. PO PRN ×2 (07:45→13:56)
[2020-02-02] MEDS: ACETAMINOPHEN 325 MG TABLET PO PRN ×2 (07:45→13:56)
[2020-02-02 15:42] VITALS: BP 154/85
[2020-02-02] MEDS: fentaNYL 12MCG/HR 1 PATCH PATCH TD SCH (17:00)
--- NOTE | 2020-02-02 18:43 | NUR ---
Pt up adl in room. Has been calm most of day. Has been compliant with meds and cares.
[2020-02-02] MEDS: traZODone 50 MG TABLET. PO PRN (21:00)
[2020-02-02] MEDS: LIDOCAINE (700MG/PATCH) PATCH. TD SCH (21:00)
[2020-02-02] MEDS: ATORVASTATIN CALCIUM 20 MG TABLET PO SCH (21:00)
--- NOTE | 2020-02-02 21:41 | PDOC ---
Exam Note: Alistair Note: Please also refer to the separate dictated note~for this date of service dictated separately.~Patient seen individually. Discussed the patient with Nursing staff reviewed the chart.~Reviewed interim history and current functioning. Reviewed vital signs,~Labs/ Radiology~and current medications noted below. Continue current treatment with the changes noted in the dictated addendum note Assessment: Vital Signs/I&O: Vital Signs Date Time Temp Pulse Resp B/P (MAP) Pulse Ox O2 Delivery O2 Flow Rate FiO2 02/02/20 15:42 98.1 82 20 154/85 (108) 97 Room Air I & O 02/01/20 02/01/20 02/02/20 15:00 23:00 07:00 Intake Total 550 ml 240 ml Balance 550 ml 240 ml Current Medications: Meds: Current Medications Medications (Trade) Dose Ordered Sig/Williams Route PRN Reason Start Time Stop Time Status Last Admin Dose Admin Fentanyl (Duragesic 12mcg/ Hr) 1 patch Q3DAYS TD 02/02/20 17:00 02/02/20 17:00 I have reviewed the current psychotropics carefully including drug interactions. Risk benefit ratio favors no change other than as noted in my dictated progress note. Diagnosis: Problems: (1) Major depressive disorder, recurrent episode (2) Mild cognitive impairment (3) Anxiety disorder, unspecified (4) Impulse control disorder AGNIESZKA COLLADO MD Feb 02, 2020 21:41
--- NOTE | 2020-02-03 01:44 | NUR ---
Nursing Note The patient was located in her room for her assessment and medication pass. The patient took her medication whole. The patient was pleasant and interactive during her assessment. The patient is currently sleeping in her room.
[2020-02-03] MEDS: LEVOTHYROXINE 88 MCG TABLET PO SCH (05:45)
[2020-02-03 06:00] VITALS: BP 156/84
[2020-02-03] MEDS: ASPIRIN CHEWABLE 81 MG TABLET. PO SCH (09:08)
[2020-02-03] MEDS: DOCUSATE SODIUM 100 MG CAPSULE PO SCH ×2 (09:08→20:20)
[2020-02-03] MEDS: DONEPEZIL HCL 10 MG TABLET PO SCH (09:08)
[2020-02-03] MEDS: PATCH REMOVAL. MC SCH (09:08)
[2020-02-03] MEDS: FAMOTIDINE 20 MG TABLET PO SCH ×2 (09:09→20:20)
[2020-02-03] MEDS: MULTIVITAMIN with MINERAL TABLET. PO SCH (09:09)
[2020-02-03] MEDS: CALCIUM CARBONATE 500 MG TABLET PO SCH (09:09)
[2020-02-03] MEDS: QUEtiapine 50 MG TABLET. PO SCH ×4 (09:09→20:21)
[2020-02-03] MEDS: POLYETHYLENE GLYCOL 3350 17 GM PACKET. PO SCH (09:09)
[2020-02-03] MEDS: METHYL SALICYLATE/MENTHOL TOPICAL OINTMENT 57GM TUBE. TP SCH ×4 (09:09→20:21)
[2020-02-03] MEDS: METOPROLOL SUCC 24HR ER 25 MG TAB.ER.24H. PO SCH (09:09)
[2020-02-03] MEDS: lamoTRIgine 100 MG TABLET. PO SCH (09:09)
[2020-02-03] MEDS: CYCLOBENZAPRINE 10 MG TABLET. PO PRN ×2 (09:18→20:21)
[2020-02-03] MEDS: ACETAMINOPHEN 325 MG TABLET PO PRN ×2 (09:18→20:21)
[2020-02-03 15:52] VITALS: BP 124/84
[2020-02-03] MEDS: LIDOCAINE (700MG/PATCH) PATCH. TD SCH (20:20)
[2020-02-03] MEDS: ATORVASTATIN CALCIUM 20 MG TABLET PO SCH (20:20)
--- NOTE | 2020-02-03 22:08 | PDOC ---
Exam Note: Alistair Note: Please also refer to the separate dictated note~for this date of service dictated separately.~Patient seen individually. Discussed the patient with Nursing staff reviewed the chart.~Reviewed interim history and current functioning. Reviewed vital signs,~Labs/ Radiology~and current medications noted below. Continue current treatment with the changes noted in the dictated addendum note Assessment: Vital Signs/I&O: Vital Signs Date Time Temp Pulse Resp B/P (MAP) Pulse Ox O2 Delivery O2 Flow Rate FiO2 02/03/20 15:52 98.5 121 18 124/84 (97) 97 02/03/20 06:00 Room Air I & O 02/02/20 02/02/20 02/03/20 15:00 23:00 07:00 Intake Total 600 ml 480 ml Balance 600 ml 480 ml Current Medications: I have reviewed the current psychotropics carefully including drug interactions. Risk benefit ratio favors no change other than as noted in my dictated progress note. Diagnosis: Problems: (1) Major depressive disorder, recurrent episode (2) Mild cognitive impairment (3) Anxiety disorder, unspecified (4) Impulse control disorder AGNIESZKA COLLADO MD Feb 03, 2020 22:08
--- NOTE | 2020-02-03 23:14 | NUR ---
Pt located in her room this evening, laying calmly in bed. Compliant with whole medications. PRN Tylenol, Flexeril and analgesic balm administered per pt request.
[2020-02-04] MEDS: LEVOTHYROXINE 88 MCG TABLET PO SCH (05:17)
[2020-02-04 06:00] VITALS: BP 128/74
--- NOTE | 2020-02-04 06:40 | PDOC ---
Exam Note: Alistair Note: This note is a late entry for 02/02/2020 covers elements not covered in my initial note. Subjective: The patient was seen face to face in the evening of 02/02/2020 with Shara JEFFERSON. Discussed with nursing staff, reviewed the chart. The patient slept 7-3/4 hours previous night. The patient does complain of ongoing neck pain and was started on fentanyl patch. Otherwise anxiety is better. Review of Systems: She is hard of hearing, complains of neck pain. No CV, , system symptoms on review. Mental Status Exam: Reasonably oriented. She is quite verbal, interactive, still talking about her neck pain, feels she has not had any benefit so far from the fentanyl patch but agrees to continue with it. Speech is coherent. Abstraction is fair. Computation is impaired. Language function is intact. Mood and affect withdrawn. No suicidal or homicidal ideation. She had many questions about her placement and we addressed this. Laboratory Data: Reviewed. Impression: Major depressive disorder recurrent. Mild cognitive impairment. Anxiety disorder unspecified. Impulse control disorder unspecified. Plan: No change from initial note. Assessment: Vital Signs/I&O: Vital Signs Date Time Temp Pulse Resp B/P (MAP) Pulse Ox O2 Delivery O2 Flow Rate FiO2 02/04/20 06:00 98.0 84 18 128/74 (92) 93 Room Air I & O 02/03/20 02/03/20 02/04/20 15:00 23:00 07:00 Intake Total 840 ml 340 ml Balance 840 ml 340 ml Current Medications: I have reviewed the current psychotropics carefully including drug interactions. Risk benefit ratio favors no change other than as noted in my dictated progress note. Diagnosis: Problems: (1) Major depressive disorder, recurrent episode (2) Mild cognitive impairment (3) Anxiety disorder, unspecified (4) Impulse control disorder AGNIESZKA COLLADO MD Feb 04, 2020 06:40
[2020-02-04] MEDS: PATCH REMOVAL. MC SCH (07:00)
[2020-02-04] MEDS: POLYETHYLENE GLYCOL 3350 17 GM PACKET. PO SCH (08:02)
[2020-02-04] MEDS: CALCIUM CARBONATE 500 MG TABLET PO SCH (08:04)
[2020-02-04] MEDS: DOCUSATE SODIUM 100 MG CAPSULE PO SCH ×2 (08:04→19:56)
[2020-02-04] MEDS: lamoTRIgine 100 MG TABLET. PO SCH (08:04)
[2020-02-04] MEDS: ASPIRIN CHEWABLE 81 MG TABLET. PO SCH (08:04)
[2020-02-04] MEDS: FAMOTIDINE 20 MG TABLET PO SCH ×2 (08:04→19:56)
[2020-02-04] MEDS: DONEPEZIL HCL 10 MG TABLET PO SCH (08:04)
[2020-02-04] MEDS: QUEtiapine 50 MG TABLET. PO SCH ×4 (08:05→19:56)
[2020-02-04] MEDS: METOPROLOL SUCC 24HR ER 25 MG TAB.ER.24H. PO SCH (08:05)
[2020-02-04] MEDS: MULTIVITAMIN with MINERAL TABLET. PO SCH (08:05)
[2020-02-04] MEDS: CYCLOBENZAPRINE 10 MG TABLET. PO PRN ×2 (08:06→16:08)
[2020-02-04] MEDS: ACETAMINOPHEN 325 MG TABLET PO PRN ×2 (08:06→16:08)
[2020-02-04] MEDS: METHYL SALICYLATE/MENTHOL TOPICAL OINTMENT 57GM TUBE. TP SCH ×4 (08:06→19:58)
--- NOTE | 2020-02-04 09:31 | NUR ---
Pt is highly anxious this am. She is difficult to console or redirect. She stated she is anxious about her d/c tomorrow. Nurse was able to distract her by talking about the weather and the making ice cream out of snow. Nurse also spoke of coping skills with anxiety. Pt is compliant with medication and assessment. No hallucination, no delusions, no agitation, no aggression.
[2020-02-04 16:01] VITALS: BP 140/79
[2020-02-04] MEDS: ATORVASTATIN CALCIUM 20 MG TABLET PO SCH (19:56)
[2020-02-04] MEDS: LIDOCAINE (700MG/PATCH) PATCH. TD SCH (19:58)
--- NOTE | 2020-02-04 22:09 | PDOC ---
Exam Note: Alistair Note: Please also refer to the separate dictated note~for this date of service dictated separately.~Patient seen individually. Discussed the patient with Nursing staff reviewed the chart.~Reviewed interim history and current functioning. Reviewed vital signs,~Labs/ Radiology~and current medications noted below. Continue current treatment with the changes noted in the dictated addendum note Assessment: Vital Signs/I&O: Vital Signs Date Time Temp Pulse Resp B/P (MAP) Pulse Ox O2 Delivery O2 Flow Rate FiO2 02/04/20 16:01 98.9 122 22 140/79 (99) 97 02/04/20 06:00 Room Air I & O 02/03/20 02/03/20 02/04/20 14:59 22:59 06:59 Intake Total 840 ml 340 ml Balance 840 ml 340 ml Current Medications: I have reviewed the current psychotropics carefully including drug interactions. Risk benefit ratio favors no change other than as noted in my dictated progress note. Diagnosis: Problems: (1) Major depressive disorder, recurrent episode (2) Mild cognitive impairment (3) Anxiety disorder, unspecified (4) Impulse control disorder AGNIESZKA COLLADO MD Feb 04, 2020 22:09
--- NOTE | 2020-02-04 23:17 | NUR ---
Pt located in her room all evening. Pt pleasant, states that she is somewhat anxious about discharging tomorrow as she doesn't "do well with change." Compliant with whole medications.
[2020-02-04] MEDS ORDERED: CYCL-331 PO (23:58)
[2020-02-04] MEDS ORDERED: MAGN24003 PO (23:59)
[2020-02-04] MEDS ORDERED: LIDO700A21 TP (23:59)
[2020-02-05] MEDS ORDERED: METH28OI2 TP
[2020-02-05] MEDS ORDERED: QUET50TA5 PO (00:01)
[2020-02-05] MEDS ORDERED: POLY2500 PO (00:01)
[2020-02-05] MEDS ORDERED: FENT-73 TD (00:02)
[2020-02-05] MEDS: LEVOTHYROXINE 88 MCG TABLET PO SCH (05:05)
[2020-02-05 06:06] VITALS: BP 131/81
--- NOTE | 2020-02-05 06:42 | PDOC ---
Exam Note: Alistair Note: This note is a late entry for 02/03/2020 covers elements not covered in my initial note. Subjective: The patient was seen face to face in the evening of 02/03/2020 with Kiah JEFFERSON. Discussed with nursing staff, reviewed the chart. The patient slept 8-1/2 hours previous night. Overall the patient is doing better. She does still complain of neck pain and is hard of hearing. Review of Systems: She is hard of hearing, still complains of neck pain. No CV, , system symptoms on review. Mental Status Exam: Oriented to herself and situation. Speech has some l atency. Abstraction is fair. Computation is impaired. Language function is intact. Attention span is short. Mood and affect somewhat withdrawn at times, anxious but better than before. Laboratory Data: Reviewed. Impression: Major depressive disorder recurrent. Mild cognitive impairment. Anxiety disorder unspecified. Impulse control disorder unspecified. Plan: No change from initial note. Assessment: Vital Signs/I&O: Vital Signs Date Time Temp Pulse Resp B/P (MAP) Pulse Ox O2 Delivery O2 Flow Rate FiO2 02/05/20 06:06 97.0 81 20 131/81 (98) 96 02/04/20 06:00 Room Air I & O 02/04/20 02/04/20 02/05/20 15:00 23:00 07:00 Intake Total 840 ml 300 ml Balance 840 ml 300 ml Current Medications: I have reviewed the current psychotropics carefully including drug interactions. Risk benefit ratio favors no change other than as noted in my dictated progress note. Diagnosis: Problems: (1) Major depressive disorder, recurrent episode (2) Mild cognitive impairment (3) Anxiety disorder, unspecified (4) Impulse control disorder AGNIESZKA COLLADO MD Feb 05, 2020 06:42
--- NOTE | 2020-02-05 07:11 | PDOC ---
Exam Note: Alistair Note: This note is a late entry for 02/04/2020 covers elements not covered in my initial note. Subjective: The patient was seen face to face in the evening of 02/04/2020 with Kiah JEFFERSON. Discussed with nursing staff, reviewed the chart. The patient slept 6-3/4 hours previous night. The patients discharge plan is tomorrow and when she was informed this morning she had 2 panic attacks. We will use [facility] p.r.n. for this. Review of Systems: She is hard of hearing. Impaired ambulation with walker. No CV, , pulmonary, eye, system symptoms on review. Mental Status Exam: Reasonably oriented. Speech is coherent. Abstraction is fair. Computation is impaired. Language function is intact. Mood and affect withdrawn. No suicidal or homicidal ideation. Laboratory Data: Reviewed. Impression: Major depressive disorder recurrent. Mild cognitive impairment. Anxiety disorder unspecified. Impulse control disorder unspecified. Plan: No change from initial note. Transition to nursing facility on 02/04. Assessment: Vital Signs/I&O: Vital Signs Date Time Temp Pulse Resp B/P (MAP) Pulse Ox O2 Delivery O2 Flow Rate FiO2 02/05/20 06:06 97.0 81 20 131/81 (98) 96 02/04/20 06:00 Room Air I & O 02/04/20 02/04/20 02/05/20 14:59 22:59 06:59 Intake Total 840 ml 300 ml Balance 840 ml 300 ml Current Medications: I have reviewed the current psychotropics carefully including drug interactions. Risk benefit ratio favors no change other than as noted in my dictated progress note. Diagnosis: Problems: (1) Major depressive disorder, recurrent episode (2) Mild cognitive impairment (3) Anxiety disorder, unspecified (4) Impulse control disorder AGNIESZKA COLLADO MD Feb 05, 2020 07:11
[2020-02-05] MEDS ORDERED: clonazePAM 0.5 MG TABLET PO ONE (08:00)
[2020-02-05] MEDS: POLYETHYLENE GLYCOL 3350 17 GM PACKET. PO SCH (08:29)
[2020-02-05] MEDS: DOCUSATE SODIUM 100 MG CAPSULE PO SCH (08:31)
[2020-02-05] MEDS: ASPIRIN CHEWABLE 81 MG TABLET. PO SCH (08:31)
[2020-02-05] MEDS: lamoTRIgine 100 MG TABLET. PO SCH (08:31)
[2020-02-05] MEDS: DONEPEZIL HCL 10 MG TABLET PO SCH (08:31)
[2020-02-05] MEDS: CALCIUM CARBONATE 500 MG TABLET PO SCH (08:31)
[2020-02-05 08:32] VITALS: BP 131/81
[2020-02-05] MEDS: FAMOTIDINE 20 MG TABLET PO SCH (08:32)
[2020-02-05] MEDS: CYCLOBENZAPRINE 10 MG TABLET. PO PRN (08:32)
[2020-02-05] MEDS: METHYL SALICYLATE/MENTHOL TOPICAL OINTMENT 57GM TUBE. TP SCH (08:32)
[2020-02-05] MEDS: PATCH REMOVAL. MC SCH (08:32)
[2020-02-05] MEDS: MULTIVITAMIN with MINERAL TABLET. PO SCH (08:32)
[2020-02-05] MEDS: METOPROLOL SUCC 24HR ER 25 MG TAB.ER.24H. PO SCH (08:32)
[2020-02-05] MEDS: QUEtiapine 50 MG TABLET. PO SCH (08:32)
[2020-02-05] MEDS: ACETAMINOPHEN 325 MG TABLET PO PRN (08:33)
[2020-02-05] MEDS: fentaNYL 12MCG/HR 1 PATCH PATCH TD SCH (08:38)
--- NOTE | 2020-02-05 09:12 | NUR ---
[facility] Social Work Discharge Planning Form Patient Name NAM RAZO Admit Date: 01/01/2020 DISCHARGE PLAN Discharge Destination: [facility] Assessment: N/A Transportation: [facility] to transport, pharmacy picking technician time TBD. Special Instructions/Notes: Upon arrival to [facility], schedule follow up appointments with facility physician and psychiatrist within 7-10 days. DISCHARGE TO FACILITY Facility: [facility] Address: [address] [place] [id number] Contact Name: AGATA Rodriguez PCP: Facility house physician Psychiatrist: Facility house psychiatrist
--- NOTE | 2020-02-05 10:06 | NUR ---
She is compliant with her medication and assessment. Pt is calm, cooperative, and compliant. No agitation, no aggression, no hallucinations or delusions. Her anxiety is much improved since admission. She reports she is anxious about d/c today.
--- NOTE | 2020-02-05 10:47 | NUR ---
Transition Record was faxed to follow-up provider with the following elements: Reason for admission, procedures, tests, principal diagnosis, pending studies, patient instructions, 01/11 contact information for unit, phone number to obtain pending test results, plan for follow-up care, physician follow-up, advanced directive information, and medication list with dose, duration and instructions. This information was included in the following documents: History and physical, lab results, study results, progress notes, social work planning form, DC instruction form, patient visit summary, and medication reconciliation form. Date & time record faxed: 02/05/2020 1000 Record faxed to: [facility] Record discussed with/ report given to: RONNY Souza
--- NOTE | 2020-02-05 21:56 | PDOC ---
Exam Note: Alistair Note: Please also refer to the separate dictated note~for this date of service dictated separately.~Patient seen individually. Discussed the patient with Nursing staff reviewed the chart.~Reviewed interim history and current functioning. Reviewed vital signs,~Labs/ Radiology~and current medications noted below. Continue current treatment with the changes noted in the dictated addendum note Assessment: Vital Signs/I&O: Vital Signs Date Time Temp Pulse Resp B/P (MAP) Pulse Ox O2 Delivery O2 Flow Rate FiO2 02/05/20 08:38 20 02/05/20 08:32 81 131/81 02/05/20 06:06 97.0 96 02/04/20 06:00 Room Air I & O 02/04/20 02/04/20 02/05/20 15:00 23:00 07:00 Intake Total 840 ml 300 ml Balance 840 ml 300 ml Current Medications: Meds: Current Medications Medications (Trade) Dose Ordered Sig/Williams Route PRN Reason Start Time Stop Time Status Last Admin Dose Admin Clonazepam (KlonoPIN) 0.5 mg 1X ONCE PO 02/05/20 08:00 02/05/20 08:01 DC 02/05/20 08:31 I have reviewed the current psychotropics carefully including drug interactions. Risk benefit ratio favors no change other than as noted in my dictated progress note. Diagnosis: Problems: (1) Major depressive disorder, recurrent episode (2) Mild cognitive impairment (3) Anxiety disorder, unspecified (4) Impulse control disorder AGNIESZKA COLLADO MD Feb 05, 2020 21:56
--- NOTE | 2020-02-07 01:18 | DS ---
DATE OF DISCHARGE: 02/05/2020 DISCHARGE SUMMARY/PSYCHIATRIC PROGRESS NOTE REASON FOR ADMISSION: Please refer to the admission history for details. Briefly, the patient is an 84-year-old female referred to us from home by her primary care physician on account of increased aggression, throwing herself to the floor "to ." She was hitting her head against the bed rails tearful, becoming aggressive towards her adult granddaughter who lives with her. The patient's behaviors were unmanageable, had failed outpatient psychiatric interventions resulting in this referral. SIGNIFICANT FINDINGS AND CLINICAL COURSE: Following admission, the patient was seen daily individually by myself from a psychiatric standpoint, medical followup with Dr. Irizarry/Dr. Castro The patient had significant neck pain, was hard of hearing, which interfered with her communication and overall symptoms of depression, hopelessness, worthlessness. Adjustments were made in her psychotropics and she seemed to respond to a combination of Lamictal 300 mg daily, Aricept 10 mg a day, Zyprexa p.r.n., Seroquel 50 mg 4 times a day, trazodone 50 mg at bedtime p.r.n. insomnia. REVIEW OF SYSTEMS: Prior to discharge, hard of hearing. No CV, , pulmonary, eye system symptoms are reviewed, does complain of neck pain. MENTAL STATUS EXAM: Reasonably oriented. Speech is coherent, abstraction fair, computation impaired, language function intact, attention span short. Mood and affect improved. No suicidal or homicidal ideation at discharge. LABORATORY DATA: Reviewed. FINAL DIAGNOSES: Major depressive disorder with psychotic features, in partial remission; anxiety disorder, unspecified; impulse control disorder, unspecified. Rest as above. DISCHARGE MEDICATIONS: Please refer to the [facility]AD. DISCHARGE INSTRUCTIONS: Outpatient psychiatric and medical followup at the [facility]. Time for discharge day management greater than 30 minutes. AGNIESZKA COLLADO MD DR: PIEDAD/tegan JOB#: [id number] / [id number]
--- NOTE | 2020-02-07 06:35 | PDOC ---
Exam Note: Alistair Note: This note is a late entry for 02/05/2020 covers elements not covered in my initial note. Subjective: The patient was seen face to face in the evening of 02/05/2020 with Kiah JEFFERSON. Discussed with nursing staff, reviewed the chart. The patient slept 8-1/4 hours previous night. Review of Systems: She is hard of hearing. She complains of neck pain. No CV, , pulmonary, eye, system symptoms on review. Mental Status Exam: Reasonably oriented. Speech is coherent. Abstraction is fair. Computation is impaired. Language function is intact. Mood and affect w ithdrawn. No suicidal or homicidal ideation. Laboratory Data: Reviewed. Impression: Major depressive disorder in partial remission. Anxiety disorder unspecified. Impulse control disorder unspecified. Plan: No change from initial note. Discharged to Assisted Living. Assessment: Vital Signs/I&O: Vital Signs Date Time Temp Pulse Resp B/P (MAP) Pulse Ox O2 Delivery O2 Flow Rate FiO2 02/05/20 08:38 20 02/05/20 08:32 81 131/81 02/05/20 06:06 97.0 96 02/04/20 06:00 Room Air Current Medications: I have reviewed the current psychotropics carefully including drug interactions. Risk benefit ratio favors no change other than as noted in my dictated progress note. Diagnosis: Problems: (1) Major depressive disorder, recurrent episode (2) Mild cognitive impairment (3) Anxiety disorder, unspecified (4) Impulse control disorder AGNIESZKA COLLADO MD Feb 07, 2020 06:35
== END 2020-02-05 10:48 | DRG 885 ==
LOC: GEROPSY 14:00
PROVIDERS: ADMIT Psychiatry & Neurology Psychiatry; ATTEND Psychiatry & Neurology Psychiatry
DX: F33.3 Major depressive disorder, recurrent, severe with psychotic symptoms (principal); N39.0 Urinary tract infection, site not specified; F63.9 Impulse disorder, unspecified; G31.84 Mild cognitive impairment of uncertain or unknown etiology; G40.909 Epilepsy, unspecified, not intractable, without status epilepticus; I12.9 Hypertensive chronic kidney disease with stage 1 through stage 4 chronic kidney disease, or unspecified chronic kidney disease; I48.91 Unspecified atrial fibrillation; N18.30 Chronic kidney disease, stage 3 unspecified; Z66 Do not resuscitate; M19.90 Unspecified osteoarthritis, unspecified site; F41.9 Anxiety disorder, unspecified; Z88.0 Allergy status to penicillin; Z20.828 Contact with and (suspected) exposure to other viral communicable diseases; Z79.899 Other long term (current) drug therapy
CPT/HCPCS: 36415; 72125; 80053; 80061; 82306; 82607; 83036; 83540; 83550; 83735; 84436; 84480; 85025; 85379; 86592; U0003; 97110; 97116; 97530